=== PATIENT | female | born 1990 | race Caucasian/White ===

== ENCOUNTER 2022-10-25 12:20 | Inpatient (IN) | payer MEDICAID, SELFPAY ==
[2022-10-25] VITALS (34 sets, daily range): BP systolic 109–143; BP diastolic 68–105; PULSE 122–151; RESP 23–51; TEMP 37.2–39.1; O2SAT 90–96; BMI 16.7
--- NOTE | 2022-10-25 12:35 | ECG_ITS ---
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
--- NOTE | 2022-10-25 12:35 | XR_ITS ---
The [address] [address] Patient Name: JT BECERRIL MRN: [id number] date: 1990 Sex: F Assigned Patient Location: ER Current Patient Location: ER Accession/Order Number: [id number] Exam Date: 10/25/2022 13:10 Report Date: 10/25/2022 14:16 At the request of: MARCELO DAVIS Procedure: XR chest 1V EXAMINATION: XR chest 1V HISTORY: shortness of breath COMPARISON: 05/28/2022 TECHNIQUE: Semierect portable FINDINGS: LUNGS: The right lung is clear. Moderate left basilar infiltrate obscuring the hemidiaphragm and partially obscuring the heart border VASCULATURE: No increased pulmonary vasculature. PLEURA: No pneumothorax. Left pleural effusion CARDIAC: No cardiomegaly or cardiac silhouette abnormality. MEDIASTINUM: No visible mass or adenopathy. BONES: No fracture or visible bone lesion. Scoliosis with spinal fixation rods OTHER: Negative. XR/XR chest 1V IMPRESSION: Moderate left lung infiltrate and pleural effusion. Consider left lower lobe pneumonia Electronically authenticated by: SHAKIR WINSTON Date: 10/25/2022 14:16
[2022-10-25] MEDS: METHYLPREDNISOLONE SOD SUCC PF 125 MG/2 ML VIAL IVP (13:01)
[2022-10-25] MEDS: ALBUTEROL SULFATE 2.5 MG/3 ML VIAL NEB IH (13:06)
[2022-10-25 13:10] LABS: Basophils Percent Auto 0.2 % (0.2-2.0); Eosinophils Percent Auto 0.1 % (0.9-7.0); Hematocrit 40.2 % (36.0-48.0); Hemoglobin 13.1 g/dL (12.0-16.0); Immature Granulocytes Abs Auto 0.07 10^3/uL (0.00-0.03); Immature Granulocytes Pct Auto 0.4 % (0.0-0.5); Lymphocytes Absolute Auto 1.1 10^3/uL (1.2-3.8); Lymphocytes Percent Auto 7.1 % (20.5-60.0); Mean Corpuscular HGB Conc 32.6 g/dL (29.9-35.2); Mean Corpuscular Hemoglobin 29.1 pg (26.7-34.0); Mean Corpuscular Volume 89.3 fL (81.0-99.0); Mean Platelet Volume 10.5 fL (9.5-13.5); Monocytes Absolute Auto 1.4 10^3/uL (0.3-0.8); Neutrophils Absolute Auto 13.1 10^3/uL (1.4-6.5); Neutrophils Percent Auto 83.2 % (43.0-75.0); Platelet Count 378 10^3/uL (150-450); Red Cell Distribution Width 12.8 % (11.0-15.0); White Blood Count 15.7 10^3/uL (4.0-11.0)
[2022-10-25 13:34] LABS: Anion Gap 13.9; BUN Creatinine Ratio 31.8; Calcium 9.6 mg/dL (8.5-10.1); Carbon Dioxide 29.2 mmol/L (21.0-32.0); Chloride 96 mmol/L (98-107); Estimated GFR (African America >60 (>=60); Estimated GFR (Non-African Ame >60 (>=60); Glucose 127 mg/dL (74-106); Potassium 4.1 mmol/L (3.5-5.1); Sodium 135 mmol/L (136-145); Troponin I High Sensitivity <4.0 pg/mL (4.0-51.3)
--- NOTE | 2022-10-25 14:10 | ED_ITS ---
HPI - General Adult General Chief complaint: Shortness of Breath/Dyspnea Stated complaint: TROUBLE BREATHING/SOB Time Seen by Provider: 10/25/22 12:30 Source: caregiver Source information: Caregiver from [facility] Mode of arrival: ambulance Limitations: altered mental status and physical limitation History of Present Illness HPI narrative: patient brought in by EMS from [facility] when the staff noted that her breathing became erratic and she seemed short of breath. Patient is non-verbal, has CP, severe intellectual disability, hearing and visual impairment and seizure disorder. She stayed with her father this past weekend but he did not report any issues. The patient's breathing became erratic and she began grunting after the staff attempted to give her tube feeds and reported some difficulty doing so. She had the g-tube initially placed October 2015. Related Data Home Medications Medication Instructions Recorded Confirmed divalproex 125 mg tablet,delayed 125 mg PO Q12H 10/25/22 10/25/22 release (Depakote) levetiracetam 100 mg/mL oral 250 mg PO BID 10/25/22 10/25/22 solution (Keppra) Allergies Allergy/AdvReac Type Severity Reaction Status Date / Time Sulfa (Sulfonamide Allergy Intermediate Verified 10/25/22 12:31 Antibiotics) Exam Narrative Exam Narrative: Nurses notes and vital signs reviewed and patient is not hypoxic. slightly elevated temp at 99.9F General: Tachypnea with occasional grunting. Skin: Warm, dry, no pallor noted. No rash. Head: Normocephalic, atraumatic. Eye: Pupils are equal, round and EOMI. No scleral icterus. Ears, Nose, Mouth, and Throat: No facial or oral injury Cardiovascular: tachycardia. Respiratory: Tachypnea with occasional grunting. Some accessory muscle use as she coughs but no respiratory distress. Lungs with left sided rhonchi and rales Chest Wall: no tenderness, crepitus or subcutaneous emphysema Back: No midline thoracic or lumbar vertebral tenderness. No CVA tenderness Musculoskeletal: normal ROM, no calf or popliteal tenderness, no lower extremity edema/swelling GI: Abdomen is soft, non-distended. Normal bowel sounds. No tenderness to palpation. No rebound, guarding, or rigidity noted. Neurological: Non-verbal and non-interactive. No cranial nerve dysfunction observed. No truncal ataxia. Moves all extremities. Sensation intact. Constitutional Vital Signs, click to edit/add: Last Vital Signs Temp 102.4 F H 10/25/22 14:49 Pulse 130 H 10/25/22 14:49 Resp 40 H 10/25/22 14:49 BP 110/73 10/25/22 14:49 Pulse Ox 96 10/25/22 14:49 O2 Del Method Nasal Cannula 10/25/22 14:49 O2 Flow Rate 2 10/25/22 14:49 Course Vital Signs Vital signs: Vital Signs Temperature 99.9 F H 10/25/22 12:25 Pulse Rate 133 H 10/25/22 12:25 Respiratory Rate 28 H 10/25/22 12:25 Blood Pressure 143/105 H 10/25/22 12:25 Pulse Oximetry 95 10/25/22 12:25 Oxygen Delivery Method Room Air 10/25/22 12:25 Temperature 102.4 F H 10/25/22 14:49 Pulse Rate 130 H 10/25/22 14:49 Respiratory Rate 40 H 10/25/22 14:49 Blood Pressure 110/73 10/25/22 14:49 Pulse Oximetry 96 10/25/22 14:49 Oxygen Delivery Method Nasal Cannula 10/25/22 14:49 Oxygen Delivery Flow Rate 2 10/25/22 14:49 Medical Decision Making MDM Narrative Medical decision making narrative: respiratory status changed between 930am and 1030am after the staff had difficulty giving the patient tube feed - no vomiting or aspiration was directly seen but the patient did not have 1-on-1 care during that time frame. Concern for aspiration versus pneumonia or other pulmonary process. Patient was placed on air sampling and monitoring and EKG obtained. Blood drawn and sent for evaluation, including lactate and blood cultures per protocol. Initial EKG is not interpretable due to artifact. CXR obtained WBC 15.7k with left shift. BMP unremarkable. Troponin and BNP negative. Patient ordered to receive IV Levaquin. Lactate negative The family was concerned that this might no be respiratory and might be pain or from a UTI. So I ordered her to receive pain meds along with zofran in case she got nauseous. I also ordered straight cath and urine to be sent for testing. Very small amount of thick whitish urine was collected - enough for a culture but not a UA or both. Culture will be obtained. Patient's family informed of results and plan to admit the patient. Call placed to the hospitalist inventory control clerk to discuss. Dr Vang agreed to admit the patient - inpatient with telemetry to med/surg floor. Lab Data Lab results reviewed: Yes I reviewed the patient's lab results Labs: Lab Results 10/25/22 10/25/22 Range/Units 12:52 14:20 WBC 15.7 H (4.0-11.0) 10^3/uL RBC 4.50 (4.20-5.40) 10^6/uL Hgb 13.1 (12.0-16.0) g/dL Hct 40.2 (36.0-48.0) % MCV 89.3 (81.0-99.0) fL MCH 29.1 (26.7-34.0) pg MCHC 32.6 (29.9-35.2) g/dL RDW 12.8 (11.0-15.0) % Plt Count 378 (150-450) 10^3/uL MPV 10.5 (9.5-13.5) fL Neut % (Auto) 83.2 H (43.0-75.0) % Lymph % (Auto) 7.1 L (20.5-60.0) % [place] % (Auto) 9.0 (1.7-12.0) % Eos % (Auto) 0.1 L (0.9-7.0) % Baso % (Auto) 0.2 (0.2-2.0) % Neut # (Auto) 13.1 H (1.4-6.5) 10^3/uL Lymph # (Auto) 1.1 L (1.2-3.8) 10^3/uL [place] # (Auto) 1.4 H (0.3-0.8) 10^3/uL Eos # (Auto) 0.0 (0.0-0.7) 10^3/uL Baso # (Auto) 0.0 (0.0-0.1) 10^3/uL Abs Immat Gran (auto) 0.07 H (0.00-0.03) 10^3/uL Imm/Tot Granulo (auto) 0.4 (0.0-0.5) % Sodium 135 L (136-145) mmol/L Potassium 4.1 (3.5-5.1) mmol/L Chloride 96 L (98-107) mmol/L Carbon Dioxide 29.2 (21.0-32.0) mmol/L Anion Gap 13.9 BUN 14.0 (7.0-18.0) mg/dL Creatinine 0.44 L (0.55-1.02) mg/dL Est GFR ( Amer) >60 (>=60) Est GFR (Non-Af Amer) >60 (>=60) BUN/Creatinine Ratio 31.8 Glucose 127 H (74-106) mg/dL Lactate 0.9 (0.4-2.0) mmol/L Calcium 9.6 (8.5-10.1) mg/dL Troponin I High Sens <4.0 L (4.0-51.3) pg/mL NT-Pro-B Natriuret Pep 87.0 (<=450.0) pg/mL Imaging Data Chest x-ray: Radiologist's impression: Patient Name: JT BECERRIL MRN: [facility]:[id number] date: 1990 Sex: F Assigned Patient Location: ER Current Patient Location: ER Accession/Order Number: [id number] Exam Date: 10/25/2022 13:10 Report Date: 10/25/2022 14:16 At the request of: MARCELO DAVIS Procedure: XR chest 1V EXAMINATION: XR chest 1V HISTORY: shortness of breath COMPARISON: 05/28/2022 TECHNIQUE: Semierect portable FINDINGS: LUNGS: The right lung is clear. Moderate left basilar infiltrate obscuring the hemidiaphragm and partially obscuring the heart border VASCULATURE: No increased pulmonary vasculature. PLEURA: No pneumothorax. Left pleural effusion CARDIAC: No cardiomegaly or cardiac silhouette abnormality. MEDIASTINUM: No visible mass or adenopathy. BONES: No fracture or visible bone lesion. Scoliosis with spinal fixation rods OTHER: Negative. IMPRESSION: Moderate left lung infiltrate and pleural effusion. Consider left lower lobe pneumonia Electronically authenticated by: SHAKIR WINSTON Date: 10/25/2022 14:16 ECG Data Interpretation: initial EKG is not interpretable due to artifact. Discharge Plan Discharge Chief Complaint: Shortness of Breath/Dyspnea Clinical Impression: Community acquired pneumonia, UTI (urinary tract infection) Patient Disposition: Admitted As Inpatient Time of Disposition Decision: 15:21 Additional Instructions: Dr Vang, inpatient med/surg w tele
[2022-10-25] MEDS: ONDANSETRON PF 4 MG/2 ML VIAL IV (14:25)
[2022-10-25] MEDS: MORPHINE SULFATE 2 MG/ML SYRINGE IV (14:25)
[2022-10-25] MEDS: LEVOFLOXACIN IN DEXTROSE 5 % 750 MG/150 ML PIGGYBACK IV (14:40)
[2022-10-25 14:53] LABS: Lactate/Lactic Acid 0.9 mmol/L (0.4-2.0)
[2022-10-25] MEDS: ACETAMINOPHEN 500 MG TABLET G-TUBE (15:53)
[2022-10-25] MEDS: 0.9 % SODIUM CHLORIDE 1,000 ML 1000 ML IV (16:15)
[2022-10-25 16:32] LABS: SARS-CoV-2 Ag NEGATIVE (NEGATIVE)
--- NOTE | 2022-10-25 19:46 | W.PM.TELEPN ---
Progress Note: Subjective Subjective Interval history: The patient is a 32-year-old female with cerebral palsy, nonverbal at baseline and has PEG tube placement, who was at the daycare earlier today. Her mother got a phone call around 11:30 AM saying that she had increased work of breathing. She presented to the ED and was noted to have sepsis secondary to pneumonia. She was given Levaquin. She was also given Tylenol for fever and is being admitted to the ICU for further evaluation. Exam Narrative Exam Narrative: General : Nonverbal, contracted Neck: Supple, no JVD Chest: Clear to auscultation bilaterally, no wheezes Heart: Regular rate and rhythm, S1 and S2 heard Abdomen: Soft nontender nondistended. PEG tube in place Extremities: No clubbing cyanosis or edema Skin: No rashes Constitutional Vital Signs, click to edit/add: Last Vital Signs Temp 99.9 F H 10/25/22 18:29 Pulse 135 H 10/25/22 18:29 Resp 24 10/25/22 18:29 BP 114/78 10/25/22 18:29 Pulse Ox 94 L 10/25/22 18:29 O2 Del Method Nasal Cannula 10/25/22 18:29 O2 Flow Rate 2 10/25/22 18:29 Progress Note: Objective Labs Labs: Short CBC 10/25/22 Range/Units 12:52 WBC 15.7 H (4.0-11.0) 10^3/uL Hgb 13.1 (12.0-16.0) g/dL Hct 40.2 (36.0-48.0) % Plt Count 378 (150-450) 10^3/uL BMP 10/25/22 12:52 Sodium 135 L Potassium 4.1 Chloride 96 L Carbon Dioxide 29.2 BUN 14.0 Creatinine 0.44 L Glucose 127 H Calcium 9.6 Progress Note: A&P Assessment and Plan (1) UTI (urinary tract infection): (2) Community acquired pneumonia: Assessment and Plan: The patient is a 32-year-old female with a history of cerebral palsy, presenting with sepsis secondary to pneumonia. Pneumonia -Left lower lung infiltrate -Could be community-acquired or aspiration -Broaden antibiotics to Zosyn and vancomycin -Provide nebulizers Pleural effusion -Give 1 dose of IV Lasix History of seizures -Continue home medications DVT Prophylaxis -Lovenox, SCDs Medication review -Medication reconciliation form completed Goals of care -Full code Communications -Discussed with the emergency room physician -Discussed with the bedside nurse -Patient's mother updated of plan of care, all questions answered to their satisfaction Disposition -Home when medically stable Telemedicine clause -As the provider of this telehealth evaluation, requested by the patient's evaluating physician, I attest that I introduced myself to the patient, provided my credentials and determined that telemedicine via a real-time, two-way interactive audio and video platform is an appropriate and effective means of providing this service. -I reviewed the patient's chart and had a discussion with the member of the patient's treatment team. -The patient and I mutually agreed with continuation of this evaluation via telemedicine. The patient consented for the telemedicine evaluation. -This virtual encounter was taken place from [place], [place]. The encounter was approximately 35 minutes. The nurse was present during the entire time of the encounter and was able to remove the stethoscope and appropriate directions. The patient was evaluated at [facility] Telemedicine Attestation Telemedicine Attestation I conducted this encounter from [facility] via secure live, [id number] video conference with the patient, located at [facility] with nurse. Prior to the interview, the risks and benefits of telemedicine were discussed with the patient and verbal consent was obtained.
[2022-10-25] MEDS: IPRATROPIUM/ALBUTEROL SULFATE 3 ML AMPUL.NEB IH (20:30)
[2022-10-25] MEDS: DIVALPROEX SODIUM 125 MG TABLET.DR PO (20:48)
[2022-10-25] MEDS: LEVETIRACETAM 500 MG/5 ML SOLUTION 250 MG PO (20:49)
[2022-10-25] MEDS: PIPERACILLIN SODIUM/TAZOBACTAM 3.375 GM in 0.9 % SODIUM CHLORIDE 50 ML IV (21:29)
[2022-10-25] MEDS: VANCOMYCIN HCL 1,000 MG in 0.9 % SODIUM CHLORIDE 250 ML 250 MG IV (21:29)
[2022-10-25] MEDS: ENOXAPARIN SODIUM 40 MG/0.4 ML SYRINGE SUBQ (21:30)
[2022-10-25] MEDS: ACETAMINOPHEN 325 MG TABLET 650 MG G-TUBE (21:33)
--- NOTE | 2022-10-25 22:02 | PC.NURSE ---
Father at bedside currently. Patient is resting peacefully in bed. Antibiotics are currently running at this time. Patient is febrile at 99.7 orally. 650 of tylenol given at this time through G-tube and flushed. Patient tolerated procedure well. Patient on 3L [place] currently for hypoxia related to the pleural effusion and pneumonia. Positive response achieved with oxygen therapy.
[2022-10-26] VITALS (33 sets, daily range): BP systolic 101–122; BP diastolic 66–75; PULSE 107–153; RESP 24–50; TEMP 36.4–38.4; O2SAT 90–97; BMI 16.7
[2022-10-26] MEDS: IBUPROFEN 400 MG TABLET PO (00:22)
[2022-10-26] MEDS: FUROSEMIDE 20 MG/2 ML VIAL IVP (01:37)
[2022-10-26] MEDS: ACETAMINOPHEN 325 MG TABLET 650 MG G-TUBE ×2 (03:00→21:03)
[2022-10-26] MEDS: METOPROLOL TARTRATE 5 MG/5 ML VIAL IVP ×3 (03:01→21:03)
--- NOTE | 2022-10-26 03:37 | PC.NURSE ---
record vitals on pt, admin tylenol for slight temp of 99.5 axillary, admin lopressor for elevated heart rate, HR dropped from 133 to 107 after admin of med. BP WNL, titrated O2 up to 4L at this time, pt had been dropping down to 88% intermittently, pt now up to 91-92%, respirs are 32 at this time.
[2022-10-26 04:08] LABS: Basophils Percent Auto 0.1 % (0.2-2.0); Hematocrit 34.1 % (36.0-48.0); Hemoglobin 11.3 g/dL (12.0-16.0); Immature Granulocytes Abs Auto 0.04 10^3/uL (0.00-0.03); Immature Granulocytes Pct Auto 0.3 % (0.0-0.5); Lymphocytes Absolute Auto 0.5 10^3/uL (1.2-3.8); Lymphocytes Percent Auto 3.2 % (20.5-60.0); Mean Corpuscular HGB Conc 33.1 g/dL (29.9-35.2); Mean Corpuscular Hemoglobin 29.7 pg (26.7-34.0); Mean Corpuscular Volume 89.7 fL (81.0-99.0); Mean Platelet Volume 10.5 fL (9.5-13.5); Monocytes Absolute Auto 1.5 10^3/uL (0.3-0.8); Monocytes Percent Auto 10.5 % (1.7-12.0); Neutrophils Absolute Auto 12.2 10^3/uL (1.4-6.5); Neutrophils Percent Auto 85.9 % (43.0-75.0); Platelet Count 284 10^3/uL (150-450); Red Cell Distribution Width 12.7 % (11.0-15.0); White Blood Count 14.2 10^3/uL (4.0-11.0)
[2022-10-26 04:20] LABS: Anion Gap 11.9; BUN Creatinine Ratio 23.2; Calcium 8.8 mg/dL (8.5-10.1); Carbon Dioxide 26.9 mmol/L (21.0-32.0); Chloride 99 mmol/L (98-107); Estimated GFR (African America >60 (>=60); Estimated GFR (Non-African Ame >60 (>=60); Glucose 184 mg/dL (74-106); Potassium 3.8 mmol/L (3.5-5.1); Sodium 134 mmol/L (136-145)
[2022-10-26] MEDS: PIPERACILLIN SODIUM/TAZOBACTAM 3.375 GM in 0.9 % SODIUM CHLORIDE 50 ML IV ×3 (05:02→21:04)
--- NOTE | 2022-10-26 07:06 | SUR.HOLD ---
Pt changed, and linens changed this morning. pt lung sounds throughout have reeduced rhonci and rales, expiratory wheeze still present.
[2022-10-26] MEDS: DIVALPROEX SODIUM 125 MG TABLET.DR PO (08:00)
[2022-10-26] MEDS: LEVETIRACETAM 500 MG/5 ML SOLUTION 250 MG PO (08:01)
--- NOTE | 2022-10-26 08:27 | PM.HP ---
H&P: HPI History of Present Illness Chief complaint: TROUBLE BREATHING/SOB UTI PNEUMONIA Narrative: patient is a 32-year-old female with past medical history with cerebral palsy, MRDD who is nonverbal. Also has history of epilepsy and requires two canes. Mom was at bedside at the time of admission exam, patient was at a daycare when she became more short of breath and was not able to clear her secretions. She was then brought to the Emergency Room for further evaluation and was found to have a urinary tract infection along with a left lower lobe pneumonia. No reported events overnight with exception of poor expectoration and clearing of secretions. She has been getting her tube feeds and she still requiring oxygen to maintain saturations greater then ninety. Review of Systems ROS Status of ROS unobtainable due to mental status [facility] Medical History (Updated 10/26/22 @ 14:09 by Sherry Vang DO) Surgical History Meds Home Medications and Allergies Home Medications Medication Instructions Recorded Confirmed Type divalproex 125 mg tablet,delayed 125 mg PO Q12H 10/25/22 10/25/22 History release (Depakote) levetiracetam 100 mg/mL oral 250 mg PO BID 10/25/22 10/25/22 History solution (Keppra) Allergies Allergy/AdvReac Type Severity Reaction Status Date / Time Sulfa (Sulfonamide Allergy Intermediate Verified 10/25/22 12:31 Antibiotics) Exam Narrative Exam Narrative: General: Patient is alert Skin: no visible rashes, or ulcers Head: atraumatic, acephalic Eyes: PERRLA, no nystagmus present, conjunctiva clear, no scleral icterus Ears: normal Tympanic Membrane Nose: symmetric, no discharge Neck: no masses palpated, normal thyroid, no JVD or audible carotid bruits Heart: Normal rate and rhythm, no murmurs/rubs/gallops Lungs: no audible wheezes, crackles and diminished breath sounds all lung bajwa Abdomen: Normal audible bowel sounds, no distension, No palpable masses, no organomegaly, no rebound/guarding/ or rigidity Musculoskeletal: muscle atrophy noted, contractures of arms and legs, no swelling bilateral lower extremities Vascular: Normal carotid, radial, femoral, posterior tibial, and dorsalis pedis pulses Lymph: no supraclavicular, axillary, or anterior/posterior cervical adenopathy Neuro: CN II-X grossly intact Constitutional Vital Signs, click to edit/add: Last Vital Signs Temp 97.5 F L 10/26/22 07:24 Pulse 113 H 10/26/22 07:32 Resp 24 10/26/22 07:16 BP 101/66 10/26/22 07:16 Pulse Ox 93 L 10/26/22 08:21 O2 Del Method Nasal Cannula 10/26/22 08:21 O2 Flow Rate 3 10/26/22 08:21 Results Labs Labs: Short CBC 10/25/22 10/26/22 Range/Units 12:52 03:58 WBC 15.7 H 14.2 H (4.0-11.0) 10^3/uL Hgb 13.1 11.3 L (12.0-16.0) g/dL Hct 40.2 34.1 L (36.0-48.0) % Plt Count 378 284 (150-450) 10^3/uL BMP 10/25/22 10/26/22 12:52 03:58 Sodium 135 L 134 L Potassium 4.1 3.8 Chloride 96 L 99 Carbon Dioxide 29.2 26.9 BUN 14.0 13.0 Creatinine 0.44 L 0.56 Glucose 127 H 184 H Calcium 9.6 8.8 Assessment and Plan Assessment and Plan (1) Community acquired pneumonia: Assessment and Plan: chest x-ray consistent with a left lower lobe pneumonia was placed on Vanc, Zosyn and Levaquin will continue to de-escalate antibiotics once cultures result. (2) UTI (urinary tract infection): Assessment and Plan: awaiting culture results continue antibiotic therapy. (3) Sepsis: Assessment and Plan: secondary to #1 and two, was given fluid boluses resuscitation patient had tachycardia hypotension and elevated lactate elevated white blood cell count and a fever.lactate is now normal white blood cell count is improving. (4) History of gastrostomy tube placement: Assessment and Plan: continue tube feeds (5) Hx of seizure disorder: Assessment and Plan: continue Keppra and Depakote (6) Severe intellectual disability: Assessment and Plan: history of cerebral palsy with MRDD, patient is nonverbal Plan patient is full code Patient is inpatient status and is expected to stay more than two midnights Lovenox for deep vein thrombosis prophylaxis
[2022-10-26] MEDS: VANCOMYCIN HCL 1,000 MG in 0.9 % SODIUM CHLORIDE 250 ML 250 MG IV ×2 (09:00→16:01)
[2022-10-26] MEDS: LEVALBUTEROL HCL 1.25 MG/3 ML VIAL NEB IH ×3 (11:46→20:47)
--- NOTE | 2022-10-26 13:06 | CM.NOTE ---
Rounds made with alexandria Nathan to discharge to home today. No discharge needs identified.
--- NOTE | 2022-10-26 13:08 | CM.NOTE ---
Rounds made with Dr. Vang, discussed plan of care with pt's mother. No discharge today and continue IV antibiotics, lab work improving.
--- NOTE | 2022-10-26 13:24 | DIETREC ---
Recommend prostat @ 30 ml via peg tube x 1 daily for skin integrity
[2022-10-26 15:49] LABS: SARS-CoV-2 NAA NOT DETECTED (NOT DETECTE)
[2022-10-26] MEDS: VALPROIC ACID 250 MG/5 ML G-TUBE (21:07)
[2022-10-26] MEDS: ENOXAPARIN SODIUM 40 MG/0.4 ML SYRINGE SUBQ (21:08)
[2022-10-26] MEDS: LEVETIRACETAM 500 MG/5 ML SOLUTION PO (21:08)
[2022-10-27] VITALS (77 sets, daily range): BP systolic 98–131; BP diastolic 68–92; PULSE 108–141; RESP 19–45; TEMP 36.7–37.9; O2SAT 87–96
[2022-10-27] MEDS: IBUPROFEN 400 MG TABLET PO ×2 (00:11→19:59)
[2022-10-27] MEDS: VANCOMYCIN HCL 1,000 MG in 0.9 % SODIUM CHLORIDE 250 ML 250 MG IV (00:12)
[2022-10-27] MEDS: 0.9 % SODIUM CHLORIDE 250 ML 50 ML IV (00:20)
[2022-10-27] MEDS: METOPROLOL TARTRATE 5 MG/5 ML VIAL IVP ×4 (02:18→21:43)
[2022-10-27] MEDS: PIPERACILLIN SODIUM/TAZOBACTAM 3.375 GM in 0.9 % SODIUM CHLORIDE 50 ML IV ×3 (04:50→21:37)
--- NOTE | 2022-10-27 06:06 | PC.NURSE ---
HR was 138 - lopressor 5mg iv given down to 118 at this time
--- NOTE | 2022-10-27 08:50 | PM.PN ---
Progress Note: Subjective Subjective Interval history: patient is a 32-year-old female with past medical history with cerebral palsy, MRDD who is nonverbal. Also has history of epilepsy and requires two canes. Mom was at bedside at the time of admission exam, patient was at a daycare when she became more short of breath and was not able to clear her secretions. She was then brought to the Emergency Room for further evaluation and was found to have a urinary tract infection along with a left lower lobe pneumonia. No reported events overnight with exception of poor expectoration and clearing of secretions. She has been getting her bolus tube feeds and she still requiring oxygen to maintain saturations greater than ninety. This morning on exam, had several episodes of vomiting after tube feeds. Elevated liver enzymes. Fever overnight Exam Narrative Exam Narrative: General: Patient is alert Skin: no visible rashes, or ulcers Head: atraumatic, acephalic Eyes: PERRLA, no nystagmus present, conjunctiva clear, no scleral icterus Ears: normal Tympanic Membrane Nose: symmetric, no discharge Neck: no masses palpated, normal thyroid, no JVD or audible carotid bruits Heart: Normal rate and rhythm, no murmurs/rubs/gallops Lungs: no audible wheezes, crackles and diminished breath sounds all lung bajwa Abdomen: Normal audible bowel sounds, no distension, No palpable masses, no organomegaly, no rebound/guarding/ or rigidity Musculoskeletal: muscle atrophy noted, contractures of arms and legs, no swelling bilateral lower extremities Vascular: Normal carotid, radial, femoral, posterior tibial, and dorsalis pedis pulses Lymph: no supraclavicular, axillary, or anterior/posterior cervical adenopathy Neuro: CN II-X grossly intact Constitutional Vital Signs, click to edit/add: Last Vital Signs Temp 98.4 F 10/27/22 07:20 Pulse 130 H 10/27/22 08:00 Resp 39 H 10/27/22 07:20 BP 131/81 H 10/27/22 07:20 Pulse Ox 90 L 10/27/22 06:33 O2 Del Method Nasal Cannula 10/27/22 04:00 O2 Flow Rate 2 10/27/22 04:00 Progress Note: A&P Assessment and Plan (1) Community acquired pneumonia: (2) UTI (urinary tract infection): (3) Sepsis: (4) History of gastrostomy tube placement: (5) Hx of seizure disorder: (6) Severe intellectual disability: (7) Elevated LFTs: Plan (1) Community acquired pneumonia: ?Assessment and Plan: chest x-ray consistent with a left lower lobe pneumonia was placed on Vanc, Zosyn and Levaquin will stop vanc today, urine culture negative. More concern for aspiration pneumonia with bolus feeds. Nutrition consult today, pulmonary consult today for further recommendations. Repeat X-ray pending (2) UTI (urinary tract infection): ?Assessment and Plan: culture negative but will continue antibiotic therapy for #1 (3) Sepsis: ?Assessment and Plan: secondary to #1, was given fluid boluses resuscitation patient had tachycardia hypotension and elevated lactate elevated white blood cell count and a fever.lactate is now normal white blood cell count is improving. sepsis resolving. (4) History of gastrostomy tube placement: ?Assessment and Plan: continue tube feeds but concern for more aspiration with vomiting and overfeed. Nutrition consult for recommendations (5) Hx of seizure disorder: ?Assessment and Plan: continue Keppra and Depakote (6) Severe intellectual disability: ?Assessment and Plan: history of cerebral palsy with MRDD, patient is nonverbal, very difficult to clear own secreations and mucus, cannot even blow nose. Nursing has been providing frequent suction, we have tried vest therapy with PRN nebs. (7) elevated LFT's, lipase level pending, RUQ ultrasound, and could be due to vomiting or causing vomiting. IVF, zofran as needed. Plan patient is full code Patient is inpatient status and is expected to stay more than two midnights Lovenox for deep vein thrombosis prophylaxis mom and dad have been at bedside
[2022-10-27] MEDS: LEVOFLOXACIN IN DEXTROSE 5 % 500 MG/100 ML PIGGYBACK IV (09:10)
[2022-10-27] MEDS: VALPROIC ACID 250 MG/5 ML G-TUBE (09:11)
[2022-10-27] MEDS: LEVETIRACETAM 500 MG/5 ML SOLUTION PO (09:11)
[2022-10-27 09:18] LABS: Hematocrit 32.6 % (36.0-48.0); Hemoglobin 10.5 g/dL (12.0-16.0); Mean Corpuscular HGB Conc 32.2 g/dL (29.9-35.2); Mean Corpuscular Volume 90.1 fL (81.0-99.0); Mean Platelet Volume 10.5 fL (9.5-13.5); Platelet Count 259 10^3/uL (150-450); Red Blood Count 3.62 10^6/uL (4.20-5.40); Red Cell Distribution Width 12.8 % (11.0-15.0); White Blood Count 15.3 10^3/uL (4.0-11.0)
[2022-10-27 09:38] LABS: Alanine Aminotransferase 219 U/L (14-59); Albumin Globulin Ratio 0.4; Albumin Level 1.9 g/dL (3.4-5.0); Alkaline Phosphatase 185 U/L (46-116); Anion Gap 13.2; Aspartate Amino Transferase 184 U/L (15-37); BUN Creatinine Ratio 22.2; Bilirubin Total 0.2 mg/dL (0.2-1.0); Calcium 8.9 mg/dL (8.5-10.1); Carbon Dioxide 25.8 mmol/L (21.0-32.0); Chloride 101 mmol/L (98-107); Estimated GFR (African America >60 (>=60); Estimated GFR (Non-African Ame >60 (>=60); Glucose 149 mg/dL (74-106); Sodium 136 mmol/L (136-145); Total Protein 6.9 g/dL (6.4-8.2)
[2022-10-27 09:40] LABS: Band Neutrophils Absolute 0.2 10^3/uL (0.0-0.3); Lymphocytes Absolute Manual 0.91 10^3/uL (1.20-3.80); Monocytes Absolute Manual 1.68 10^3/uL (0.30-0.80); Segmented Neut Absolute Manual 12.54 10^3/uL (1.4-6.5)
[2022-10-27] MEDS: LACTATED RINGER'S SOLUTION 1,000 ML 125 ML IV ×2 (09:44→17:27)
[2022-10-27] MEDS: ONDANSETRON PF 4 MG/2 ML VIAL IV (10:06)
--- NOTE | 2022-10-27 11:45 | CM.NOTE ---
Rounds made with Dr. Vang, continue IV antibiotics and breathing tx. Pt will not be discharged today.
--- NOTE | 2022-10-27 12:02 | XR_ITS ---
The [address] [address] Patient Name: JT BECERRIL MRN: [id number] date: 1990 Sex: F Assigned Patient Location: ICU Current Patient Location: ICU Accession/Order Number: [id number] Exam Date: 10/27/2022 12:11 Report Date: 10/27/2022 12:40 At the request of: MYRA BERGMAN Procedure: XR chest 1V EXAM: XR chest 1V HISTORY: aspiration COMPARISON: 10/25/2022 TECHNIQUE: AP portable FINDINGS: LUNGS: Complete opacification of the left hemithorax obscuring the hemidiaphragm and heart border. The right lung is clear VASCULATURE: No increased pulmonary vasculature. PLEURA: No pneumothorax CARDIAC: No cardiomegaly or cardiac silhouette abnormality. MEDIASTINUM: No visible mass or adenopathy. BONES: No fracture or visible bone lesion. Spinal fusion hardware with underlying dextroscoliosis OTHER: Negative. XR/XR chest 1V IMPRESSION: Complete opacification of the left hemithorax, likely combination of pleural effusion and consolidation Electronically authenticated by: SHAKIR WINSTON Date: 10/27/2022 12:40
--- NOTE | 2022-10-27 12:04 | US_ITS ---
The [address] [address] Patient Name: JT BECERRIL MRN: [id number] date: 1990 Sex: F Assigned Patient Location: ICU Current Patient Location: ICU Accession/Order Number: [id number] Exam Date: 10/27/2022 12:30 Report Date: 10/27/2022 13:53 At the request of: MYRA BERGMAN Procedure: US abdomen complete EXAM: US abdomen complete HISTORY: elevated LFTs, bedside if possible COMPARISON: None. TECHNIQUE: Real-time complete abdomen ultrasound. Findings: The visualized portions of the aorta and IVC are unremarkable. Evaluation of the pancreas is limited due to overlying bowel gas. The visualized portions unremarkable. Unremarkable hepatic parenchymal echotexture. No focal intrahepatic mass. The main portal vein is patent and demonstrates hepatopedal flow. The gallbladder is fluid-filled and contains multiple stones. No wall thickening or pericholecystic fluid. No biliary ductal dilatation. The common bile duct measures 0.2 cm. The right and left kidneys measure 10.5 and 11.2 cm. Good corticomedullary differentiation bilaterally. No renal stones or collecting system dilatation. No focal mass or perinephric fluid collection. The spleen measures 13.6 cm and is unremarkable. US/US abdomen complete IMPRESSION: 1. Cholelithiasis. Electronically authenticated by: GELY THOMAS Date: 10/27/2022 13:53
[2022-10-27] MEDS: SCOPOLAMINE 1 EACH PATCH.TD.3 1 PATCH TD (13:12)
--- NOTE | 2022-10-27 13:16 | P.PLCN_ITS ---
History of Present Illness History of Present Illness Consult date: 10/27/22 Requesting physician: Sherry Vang Chief complaint: TROUBLE BREATHING/SOB UTI PNEUMONIA Narrative: 32yo female with cerebral palsy and MRDD, completely dependent on her parents (who live separately) presented to [facility] ER with respiratory distress on 10/25/2022. At baseline, she is not on supplemental O2 and only has albuterol though no diagnosis of asthma or COPD was provided. The mother, present in the room, states that she gives albuterol PRN when the patient appears to be having some difficulty breathing whereas she claims the father will give it twice daily scheduled. Regardless, the patient appeared to be having increased respiratory distress along with fevers and was brought to the ER. She was found to have a LLL infiltrate and signs of sepsis (e.g. tachycardia, tachypnea, leukocytosis) and was hypoxemic requiring supplemental O2. I spoke with RT - the patient is unable to clear her secretions (combination of weakness, body habitus, and mental capacity). Vest device can mobilize secretions, but patient does not expectorate. They are having to orally suction the patient. Mother states the patient has a history of significant drooling and secretions. It is not provoked by nutrition - it can happen anytime. It can sometimes soak the towel or shirt of the patient. She is on bolus TF - had PEG placed ~6 years ago - has never been on trophic or continuous feeds. Mother states that the patient is always sitting up when giving the bolus feed and waits a minimum of an hour prior to placing her supine (if she does). Today, she had episodes of vomiting witnessed by Dr. Vang with possible aspiration of TF. She continues to have tachypnea and tachycardia and persistent leukocytosis despite having been on Zosyn + Levaquin and up until now Vancomycin. CXR was repeated this early afternoon and now shows complete opacification of the left lung. Attempted to address code status, including intubation and ventilator support, with mother, but she stated she did not want to make any decisions until she spoke with the father, so she replied do everything at this current time. Review of Systems ROS Status of ROS unobtainable due to medical condition (MRDD) [facility] Medical History (Updated 10/27/22 @ 13:38 by Arie Calle DO) Surgical History Meds Home Medications and Allergies Home Medications Medication Instructions Recorded Confirmed Type levetiracetam 100 mg/mL oral 250 mg feeding tube Q12H 10/25/22 10/26/22 History solution (Keppra) valproic acid (as sodium salt) 250 250 mg feeding tube BID 10/26/22 10/26/22 History mg/5 mL (5 mL) oral solution Allergies Allergy/AdvReac Type Severity Reaction Status Date / Time Sulfa (Sulfonamide Allergy Intermediate Verified 10/25/22 12:31 Antibiotics) Exam Constitutional Vital Signs, click to edit/add: Last Vital Signs Temp 98.6 F 10/27/22 11:34 Pulse 123 H 10/27/22 13:00 Resp 37 H 10/27/22 11:19 BP 131/92 H 10/27/22 11:19 Pulse Ox 92 L 10/27/22 11:19 O2 Del Method Nasal Cannula 10/27/22 04:00 O2 Flow Rate 2 10/27/22 04:00 Documenting provider has reviewed patient's vital signs: yes Exam limitations: language barrier (non-verbal) General appearance: frail appearing Nutritional appearance: thin HENMT Other: Wearing nasal cannula Respiratory Effort & inspection: tachypneic, respiratory distress (mild) and uses accessory muscles; no audible wheezes Auscultation: rhonchi right upper and right lower and diminished lung sounds on the left throughout Cardio Rate: tachycardic Rhythm: regular rhythm GI Inspection: GI tube present Auscultation: normoactive bowel sounds Palpation: soft Extremity General: atrophy (little muscle mass) Neuro Sensorium/orientation: awake Speech: total aphasia (non-verbal baseline) Psych Other: MRDD Results Laboratory Findings Abnormal lab findings: Abnormal Labs 10/25/22 10/26/22 10/27/22 12:52 03:58 09:07 WBC 15.7 H 14.2 H 15.3 H RBC 3.80 L 3.62 L Hgb 11.3 L 10.5 L Hct 34.1 L 32.6 L Neut % (Auto) 83.2 H 85.9 H Lymph % (Auto) 7.1 L 3.2 L Eos % (Auto) 0.1 L 0.0 L Baso % (Auto) 0.1 L Neut # (Auto) 13.1 H 12.2 H Lymph # (Auto) 1.1 L 0.5 L [place] # (Auto) 1.4 H 1.5 H Abs Immat Gran (auto) 0.07 H 0.04 H Lymphocytes % (Manual) 6.0 L Eosinophils % (Manual) 0.0 L Basophils % (Manual) 0.0 L Neutrophils # (Manual) 12.54 H Lymphocytes # (Manual) 0.91 L Monocytes # (Manual) 1.68 H Sodium 135 L 134 L Chloride 96 L Creatinine 0.44 L Glucose 127 H 184 H 149 H AST 184 H ALT 219 H Alkaline Phosphatase 185 H Troponin I High Sens <4.0 L Albumin 1.9 L Lipase 72.0 L Diagnostic Findings Chest x-ray: report reviewed and image reviewed (Marked worsening of left lung 10/27/2022 (complete opacification) vs. 10/25/2022 (LLL infiltrate)) Assessment and Plan Assessment and Plan (1) Aspiration pneumonia due to inhalation of vomitus: Plan 1. Aspiration pneumonia in left lung. Working diagnosis. Symptoms are persistent, and now has complete white out of left lung today on CXR compared to 10/25/2022. After vomiting episode this morning, question further aspiration that accumulated into the left lung, vs. mucus plugging. Patient has already been ordered a pulmonary toilet, including a vest device. However, given the patient's MRDD and cerebral palsy, other non-invasive pulmonary toilet maneuvers and treatments such as postural drainage, gorman maneuvers, and PEP devices are not feasible. As she continues to be symptomatic, a bronchoscopy for clearance of secretions is not ruled out. Anticipate a difficult airway to manage and she would likely require intubation in that instance. She may not be able to be intubated with a 7.5 ETT, let alone a 7 ETT which is the limit of what the bronchoscopes are available here at [facility] - if she does require a bronchoscopy, a pediatric bronchoscope may be required. Furthermore, I am out of town for a conference starting tomorrow, and there is no pulmonary backup available. With these issues, I discussed with Dr. Guanako Vang that transfer to a tertiary care center or facility with higher level of acuity may be in this patient's best interest. 2. Acute hypoxic respiratory failure. Secondary to #1. 3. Severe sepsis seconary to #1. Continues to have SIRS with hypoxic respiratory failure. Difficult to use qSOFA as MRDD prevents adequate calculation of GCS, but she is already at a score of 1 based on RR >22 and her baseline mentation may be altered, increasing it to 2. 3. Cerebral palsy with MRDD. She is unable to care for herself nor participate well in her healthcare treatment here. She is on chronic bolus TF. Ordered parking supervisor to evaluate patient's nutritional status/TF to make recommendations. If aspiration is recurrent, may need to decrease TF bolus amount with more frequent feeds, vs. slow continuous vs. other. 4. Underweight. Associated with cerebral palsy.
--- NOTE | 2022-10-27 14:00 | PM.DS1 ---
DS: Providers Provider Date of admission: 10/25/22 17:32 Primary care physician: REE [place]KE Admitting clinician: Sherry Vang Consults: 10/27/22 12:02 Consult to Dietitian Routine Reason For Exam: tube feeds/bolus Consult to Pulmonology Routine Consulting Provider: Arie Calle 10/27/22 12:05 Consult to Dietitian Routine Reason For Exam: Chronic TF-Evaluate optimal dose: Cont, bolus, etc Discharging clinician: Sherry Vang DS: Diagnosis Discharge Diagnosis (1) Aspiration pneumonia due to inhalation of vomitus: (2) Elevated LFTs: (3) Sepsis: (4) UTI (urinary tract infection): (5) Community acquired pneumonia: (6) Hx of seizure disorder: (7) Severe intellectual disability: Plan patient is a 32-year-old female with past medical history with cerebral palsy, MRDD who is nonverbal. Also has history of epilepsy and requires two canes. Mom was at bedside at the time of admission exam, patient was at a daycare when she became more short of breath and was not able to clear her secretions. She was then brought to the Emergency Room for further evaluation and was found to have a urinary tract infection along with a left lower lobe pneumonia. No reported events overnight with exception of poor expectoration and clearing of secretions. She has been getting her bolus tube feeds and she still requiring oxygen to maintain saturations greater than ninety. This morning on exam, had several episodes of vomiting after tube feeds. Elevated liver enzymes. Fever overnight. symptoms and signs appear to be worsening. DS: Summary Hospital Course Hospital Course: (1) Aspiration pneumonia: ?Assessment and Plan: chest x-ray consistent with a left lower lobe pneumonia was placed on Vanc, Zosyn and Levaquin will stop vanc today but repeat Chest X-ray showed complete left lung effusion/infiltrate, urine culture negative. More concern for aspiration pneumonia with bolus feeds. Nutrition consult today for guidance on tube feeds and rate but none available for consult, pulmonary consult today for further recommendations: started scop patch for secretions but concern for mucus plug, may benefit from bronchoscopy but high risk for Ventilation after, would also need Pediatric bronch and ET tube possibly. Discussion with mom today at bedside and we all agreed that transfer to [facility] would be the best interest for the patient for higher level of care. Hold tube feeds for now. (2) UTI (urinary tract infection): ?Assessment and Plan: ?culture negative but will continue antibiotic therapy for #1 (3) Sepsis: ?Assessment and Plan: secondary to #1, was given fluid boluses resuscitation patient had tachycardia hypotension and elevated lactate elevated white blood cell count and a fever.lactate is now normal white blood cell count is still elevated. sepsis resolving. (4) History of gastrostomy tube placement: ?Assessment and Plan: continue tube feeds but concern for more aspiration with vomiting and overfeed. Nutrition consult for recommendations (5) Hx of seizure disorder: ?Assessment and Plan: continue Keppra and Depakote (6) Severe intellectual disability: ?Assessment and Plan: history of cerebral palsy with MRDD, patient is nonverbal, very difficult to clear own secreations and mucus, cannot even blow nose. Nursing has been providing frequent suction, we have tried vest therapy with PRN nebs. (7) elevated LFT's, RUQ ultrasound read pending, and could be due to vomiting or causing vomiting. IVF, zofran as needed. acute cholecystitis? lipase normal Transfer to [facility], once bed is available. Status at Discharge Functional status at discharge: bed bound Time Spent with Patient Time attestation: Total time spent providing and/or coordinating discharge services: Exam Narrative Exam Narrative: no Changes in exam at the time of discharge from the progress note dated today Constitutional Vital Signs, click to edit/add: Last Vital Signs Temp 98.6 F 10/27/22 11:34 Pulse 123 H 10/27/22 13:00 Resp 37 H 10/27/22 11:19 BP 131/92 H 10/27/22 11:19 Pulse Ox 92 L 10/27/22 11:19 O2 Del Method Nasal Cannula 10/27/22 04:00 O2 Flow Rate 2 10/27/22 04:00 DS: Data Data Completed and Pending Labs on day of discharge: Labs from last 24 hours 10/27/22 10/25/22 09:07 15:58 WBC 15.3 H RBC 3.62 L Hgb 10.5 L Hct 32.6 L MCV 90.1 MCH 29.0 MCHC 32.2 RDW 12.8 Plt Count 259 MPV 10.5 Seg Neuts % (Manual) 82.0 Band Neutrophils % 1.0 Lymphocytes % (Manual) 6.0 L Monocytes % (Manual) 11.0 Eosinophils % (Manual) 0.0 L Basophils % (Manual) 0.0 L Neutrophils # (Manual) 12.54 H Band Neutrophils # 0.2 Lymphocytes # (Manual) 0.91 L Monocytes # (Manual) 1.68 H Eosinophils # (Manual) 0.00 Basophils # (Manual) 0.00 Sodium 136 Potassium 4.0 Chloride 101 Carbon Dioxide 25.8 Anion Gap 13.2 BUN 18.0 Creatinine 0.81 Est GFR ( Amer) >60 Est GFR (Non-Af Amer) >60 BUN/Creatinine Ratio 22.2 Glucose 149 H Calcium 8.9 Total Bilirubin 0.2 AST 184 H ALT 219 H Alkaline Phosphatase 185 H Total Protein 6.9 Albumin 1.9 L Globulin 5.0 Albumin/Globulin Ratio 0.4 Lipase 72.0 L SARS-CoV-2 RNA (AUREA) Not detected Discharge Plan Discharge Disposition: [facility] Discharge location: transfer to [facility]
[2022-10-27] MEDS: ACETAMINOPHEN 325 MG TABLET 650 MG G-TUBE ×2 (14:31→21:20)
[2022-10-27 16:21] LABS: Vancomycin Trough 19.4 ug/mL (5.0-20.0)
--- NOTE | 2022-10-27 20:02 | NUTR.NU ---
Nutrition Note: Notified of Dietitian consult to evaluate tube feeding. Patient on bolus feeding with vomiting, aspiration. Upon review of chart, noted patient is being transferred to another facility. Will follow-up and re-evaluate if patient does not transfer as planned.
[2022-10-27] MEDS: LEVALBUTEROL HCL 1.25 MG/3 ML VIAL NEB IH (21:45)
[2022-10-27] MEDS: ENOXAPARIN SODIUM 40 MG/0.4 ML SYRINGE SUBQ (21:46)
== END 2022-10-27 23:55 | disposition short-term general hospital (02) | DRG 720 ==
LOC: ER 15:21 → ICU 17:41
PROVIDERS: Admitting Provider Internal Medicine; Emergency Provider Emergency Medicine; PCP Nurse Practitioner; Visit Provider Family Medicine
DX: A41.9 Sepsis, unspecified organism (principal); J18.9 Pneumonia, unspecified organism; G80.9 Cerebral palsy, unspecified; J69.0 Pneumonitis due to inhalation of food and vomit; N39.0 Urinary tract infection, site not specified; J90 Pleural effusion, not elsewhere classified; G40.909 Epilepsy, unspecified, not intractable, without status epilepticus; H91.90 Unspecified hearing loss, unspecified ear; H54.7 Unspecified visual loss; Z79.899 Other long term (current) drug therapy; Z93.1 Gastrostomy status; R79.89 Other specified abnormal findings of blood chemistry; F72 Severe intellectual disabilities; Z99.89 Dependence on other enabling machines and devices; Z20.822 Contact with and (suspected) exposure to COVID-19; Z88.2 Allergy status to sulfonamides; J96.01 Acute respiratory failure with hypoxia; R65.20 Severe sepsis without septic shock; R63.6 Underweight; Z68.1 Body mass index [BMI] 19.9 or less, adult
CPT/HCPCS: 36415; 71045; 76700; 80048; 80053; 80202; 81003; 83605; 83690; 83880; 84484; 85007; 85025; 87040; 87086; 87635; 87811; 93005; 94640; 94667; 94668; 94761; 96365; 96366; 96367; 96368; 96372; 96375; 96376; 99285; J2930; J3370; Q3014

== ENCOUNTER 2022-11-17 13:15 | Outpatient (REF) | payer MEDICAID, SELFPAY ==
[2022-11-17 14:00] LABS: Basophils Percent Auto 0.7 % (0.2-2.0); Eosinophils Absolute Auto 0.1 10^3/uL (0.0-0.7); Eosinophils Percent Auto 1.6 % (0.9-7.0); Hemoglobin 9.2 g/dL (12.0-16.0); Immature Granulocytes Abs Auto 0.02 10^3/uL (0.00-0.03); Immature Granulocytes Pct Auto 0.3 % (0.0-0.5); Lymphocytes Absolute Auto 1.5 10^3/uL (1.2-3.8); Lymphocytes Percent Auto 25.5 % (20.5-60.0); Mean Corpuscular HGB Conc 31.7 g/dL (29.9-35.2); Mean Corpuscular Hemoglobin 29.8 pg (26.7-34.0); Mean Corpuscular Volume 93.9 fL (81.0-99.0); Mean Platelet Volume 10.5 fL (9.5-13.5); Monocytes Absolute Auto 0.5 10^3/uL (0.3-0.8); Monocytes Percent Auto 8.5 % (1.7-12.0); Neutrophils Absolute Auto 3.7 10^3/uL (1.4-6.5); Neutrophils Percent Auto 63.4 % (43.0-75.0); Platelet Count 585 10^3/uL (150-450); Red Blood Count 3.09 10^6/uL (4.20-5.40); Red Cell Distribution Width 16.2 % (11.0-15.0); White Blood Count 5.8 10^3/uL (4.0-11.0)
[2022-11-17 14:16] LABS: Alanine Aminotransferase 73 U/L (14-59); Albumin Globulin Ratio 0.5; Albumin Level 2.8 g/dL (3.4-5.0); Alkaline Phosphatase 409 U/L (46-116); Anion Gap 13.4; Aspartate Amino Transferase 59 U/L (15-37); BUN Creatinine Ratio 43.2; Bilirubin Direct 0.1 mg/dL (0.0-0.2); Bilirubin Total 0.2 mg/dL (0.2-1.0); Calcium 9.2 mg/dL (8.5-10.1); Carbon Dioxide 30.4 mmol/L (21.0-32.0); Chloride 98 mmol/L (98-107); Estimated GFR (African America >60 (>=60); Estimated GFR (Non-African Ame >60 (>=60); Globulin 5.9 g/dL; Glucose 94 mg/dL (74-106); Potassium 4.8 mmol/L (3.5-5.1); Sodium 137 mmol/L (136-145); Total Protein 8.7 g/dL (6.4-8.2)
== END 2022-11-17 13:16 | disposition home or self-care (01) ==
LOC: LAB 13:15
PROVIDERS: PCP Nurse Practitioner
DX: J18.9 Pneumonia, unspecified organism (principal)
CPT/HCPCS: 36415; 80053; 80076; 82248; 85025

== ENCOUNTER 2022-12-01 15:34 | Outpatient (OUT) | payer MEDICAID, SELFPAY ==
--- NOTE | 2022-12-01 15:42 | XR_ITS ---
The [address] [address] Patient Name: JT BECERRIL MRN: [id number] date: 1990 Sex: F Assigned Patient Location: [facility] Current Patient Location: RAD Accession/Order Number: [id number] Exam Date: 12/01/2022 15:50 Report Date: 12/01/2022 16:11 At the request of: NON-STAFF PHYSICIAN Procedure: XR chest 2V EXAM: XR chest 2V HISTORY: Empyema J86.9 COMPARISON: 10/27/2022 TECHNIQUE: 2 views chest FINDINGS: Previous opacification of the left chest now nearly completely resolved. There is trace residual left effusion. Otherwise left lung is clear. Right lung is also well aerated. No pneumothorax. Bony vasculature is normal. Heart size within normal limits. There is thoracic dextroscoliosis with stabilization rods in the thoracal lumbar spine. XR/XR chest 2V IMPRESSION: 1. Trace left effusion with otherwise clear lungs. Marked improvement in previous complete whiteout of left chest since study 10/27/2022. Electronically authenticated by: ZAFAR CONTRERAS Date: 12/01/2022 16:11
== END 2022-12-01 15:35 | disposition home or self-care (01) ==
LOC: RAD 15:35
PROVIDERS: PCP Nurse Practitioner
DX: J86.9 Pyothorax without fistula (principal)
CPT/HCPCS: 71046

== ENCOUNTER 2023-09-09 14:39 | Emergency (ER) | payer MEDICAID, SELFPAY ==
[2023-09-09 14:44] VITALS: BP 158/100; PULSE 109; TEMP 36.9; O2SAT 98; BMI 13.6
--- NOTE | 2023-09-09 14:45 | XR_ITS ---
The [address] [address] Patient Name: JT BECERRIL MRN: [id number] date: 1990 Sex: F Assigned Patient Location: ER Current Patient Location: ER Accession/Order Number: [id number] Exam Date: 09/09/2023 15:00 Report Date: 09/09/2023 16:22 At the request of: SALLY GAUILAR Procedure: XR acute abdomen series EXAM: XR acute abdomen series HISTORY: Cough, vomiting. Concern for aspiration. COMPARISON: Chest x-ray 12/01/2022. TECHNIQUE: AP chest x-ray with upright and supine abdominal x-rays. FINDINGS: Cardiac size appears unchanged. Interstitial thickening with decreased inspiratory effort. No dense consolidative change, pneumothorax, or effusion is identified. Gastrostomy tube overlies the left upper quadrant. There is prominent stool throughout the colon. Rectum is distended 11.3 cm which could be related to fecal impaction. No bowel obstruction is seen. No air-fluid levels. No intraperitoneal free air identified. S-shaped curvature of the thoracolumbar spine with posterior fusion. XR/XR acute abdomen series IMPRESSION: 1. Marked constipation. Stool distends the rectum 11.3 cm which may indicate fecal impaction. No bowel obstruction. 2. Interstitial thickening likely related to low lung volumes. Alternatively, this could be secondary to bronchitis. Electronically authenticated by: SALLY TOWNSEND Date: 09/09/2023 16:22
--- NOTE | 2023-09-09 14:47 | ED.GENADUL1 ---
HPI HPI - General Adult General Chief complaint: Nausea/Vomiting/Diarrhea Stated complaint: choking/vomitting Time Seen by Provider: 09/09/23 14:44 Source: patient and family Mode of arrival: ambulance Limitations: language barrier History of Present Illness HPI narrative: Patient is a 33-year-old female with a history of cerebral palsy, seizure, minimally verbal. Presents with from adult [facility] facility for evaluation of possible aspiration. Patient has a PEG tube for tube feeding, was witnessed by staff to be laughing when she then vomited. Their concern is that she has a history of aspiration pneumonia last year in October. Patient's father arrived at bedside upon arrival to the ER and advised the patient has had copious nasal drainage for the past several days which she has been suctioning at home and believes that she likely gagged on her drainage causing her to vomit. There is been no reported fever or illness there was no syncopal event with the episode and EMS transfer was made at the bedside by myself. Patient alert, attentive and does not appear in any distress. Related Data Home Medications ?Medication ?Instructions ?Recorded ?Confirmed levetiracetam 100 mg/mL oral 250 mg feeding tube Q12H 10/25/22 10/26/22 solution (Keppra) valproic acid (as sodium salt) 250 250 mg feeding tube BID 10/26/22 10/26/22 mg/5 mL (5 mL) oral solution Allergies Allergy/AdvReac Type Severity Reaction Status Date / Time Sulfa (Sulfonamide Allergy Intermediate Verified 10/25/22 12:31 Antibiotics) Opioid HPI Opioid Management Most Recent Opioid Data: Last Pain Scale 6 10/25/22 15:53 Review of Systems ROS Status of ROS unobtainable due to mental status Constitutional Denies: fever or chills Ears, nose, mouth, and throat Reports: nasal discharge and nasal congestion Gastrointestinal Denies: nausea PFSH PFSH Medical History (Updated 09/09/23 @ 15:43 by NGOC López) Visual impairment ?H54.7 - Unspecified visual loss (ICD-10) Hearing impairment ?H91.90 - Unspecified hearing loss, unspecified ear (ICD-10) History of gastrostomy tube placement Scoliosis ?M41.9 - Scoliosis, unspecified (ICD-10) Hx of seizure disorder ?Z86.69 - Personal history of other diseases of the nervous system and sense organs (ICD-10) Severe intellectual disability ?F72 - Severe intellectual disabilities (ICD-10) Surgical History Exam Narrative Exam Narrative: Nurses notes and vital signs reviewed and patient is not hypoxic. General: The patient appears Alert, attentive in no acute distress, yellowish emesis noted on shirt Skin: Warm, dry, no pallor noted. no evidence of rash Head: Normocephalic, atraumatic Neck: Supple, trachea mid-line, no tenderness, no lymphadenopathy Eye: no drainage or discharge. Ears, Nose, Mouth, and Throat: TM are clear, normal light reflex, oral mucosa is moist, no posterior oropharynx erythema or hypertrophy, uvula is mid-line, + post nasal drainage. Cardiovascular: Regular Rate and Rhythm Respiratory: Patient is in no distress, no accessory muscle use, lungs are clear to auscultation, no wheezing, rales or rhonchi. Chest Wall: no tenderness Back: non-tender Musculoskeletal: normal ROM, no tenderness, no swelling GI: Normal bowel sounds, g tube present, no tenderness to palpation No rebound, guarding, or rigidity noted. Neurological: Alert, easily responsive to stimuli Psychiatric: Cooperative Constitutional Vital Signs, click to edit/add: Last Vital Signs Temp 98.4 F 09/09/23 14:44 Pulse 109 H 09/09/23 14:44 Resp 20 09/09/23 14:44 BP 158/100 H 09/09/23 14:44 Pulse Ox 98 09/09/23 14:44 O2 Del Method Room Air 09/09/23 14:44 Course Vital Signs Vital signs: Vital Signs Temperature 98.4 F 09/09/23 14:44 Pulse Rate 109 H 09/09/23 14:44 Respiratory Rate 20 09/09/23 14:44 Blood Pressure 158/100 H 09/09/23 14:44 Pulse Oximetry 98 09/09/23 14:44 Oxygen Delivery Method Room Air 09/09/23 14:44 Temperature 98.4 F 09/09/23 14:44 Pulse Rate 109 H 09/09/23 14:44 Respiratory Rate 20 09/09/23 14:44 Blood Pressure 158/100 H 09/09/23 14:44 Pulse Oximetry 98 09/09/23 14:44 Oxygen Delivery Method Room Air 09/09/23 14:44 Medical Decision Making MDM Narrative Medical decision making narrative: Care staff report patient vomiting after laughing, father believes her nasal congestion likely contributed as she does not swallow well. Patient has a PEG tube. There is been no further vomiting. Patient has stable vitals given recent events, chest x-ray performed, lungs are clear. Ab series performed in case of ileus or obstruction. Patient was observed with no deterioration in clinical status. Recommend close observation to the weekend and return to the ER if any symptoms develop. Patient reevaluated, she has not hypoxic, she is in no distress visited with family at bedside. Patient's lungs are still clear to auscultation. There is been no further vomiting or choking or coughing sensation. Father is agreeable to observe over the weekend. We discussed chest x-ray with relatively clear lungs, we discussed her abdominal x-ray with notable stool [place]. Patient's father reports constipation has been an ongoing issue, they typically treat with MiraLAX but when she goes to a coparents house they are not typically giving MiraLAX regularly. He feels comfortable taking her home, reinstituting MiraLAX regime and watching for BM. If any things worsen or new symptoms develop they will bring patient back to the ER for reevaluation. Specifically watching for any fevers chills or change in mentation. The patient is to followup with primary care physician in next 2-3 days or to return to the emergency department should any of the signs or symptoms worsen or new symptoms develop. Patient had questions answered. The patient agrees with the following Diagnosis and Treatment plan and the patient will be discharged home. Lab Data Lab results reviewed: Yes I reviewed the patient's lab results Labs: Lab Results 09/09/23 Range/Units 14:50 Influenza Type A Ag Negative Influenza Type B Ag Negative RSV Antigen Not detected (NOT DETECTE) SARS-CoV-2 Ag (CV2AG) Negative (NEGATIVE) Imaging Data Chest x-ray: My impression: No acute infiltrate, large stool burden, notable stool in the rectal vault. Radiologist's impression: ITS Impressions Chest/Abdomen X-ray 09/09/23 14:45 IMPRESSION: 1. Marked constipation. Stool distends the rectum 11.3 cm which may indicate fecal impaction. No bowel obstruction. 2. Interstitial thickening likely related to low lung volumes. Alternatively, this could be secondary to bronchitis. Electronically authenticated by: SALLY TOWNSEND Date: 09/09/2023 16:22 Discharge Plan Discharge Stand Alone Forms: Portal Instructions Chief Complaint: Nausea/Vomiting/Diarrhea Clinical Impression: Vomiting, Nasal drainage, Constipation Patient Disposition: Home, Self-Care Time of Disposition Decision: 15:42 Condition: Good Prescriptions / Home Meds: No Action levetiracetam [Keppra] 100 mg/mL solution 250 mg feeding tube Q12H Patient Comments: PER MOTHER - WANTS TO USE HOME MEDICATON IN THE HOSPITAL Rx Instructions: PER RETAIL FILL HX, TALKING WITH MOTHER, AND LOOKING AT HOME MEDICATION BOTTLE - PATIENTS HOME MED IS LEVETIRACETAM 100MG/ML SOLUTION PER G-TUBE Q12HRS valproic acid (as sodium salt) 250 mg/5 mL (5 mL) solution 250 mg feeding tube BID Patient Comments: PER MOTHER - WANTS TO USE HOME MEDICATION IN THE HOSPITAL Rx Instructions: PER RETAIL FILL HX, TALKING WITH MOTHER, AND LOOKING AT HOME MEDICATION BOTTLE PATIENTS HOME MED IS VALPROIC ACID 250MG/5ML SOLUTION - TAKE [id number] PER G-TUBE TWICE A DAY Print Language: Yoruba Instructions: Acute Nausea and Vomiting (ED) Referrals: [facility] [Primary Care Provider] - As soon as possible Discharge Date/Time: 09/09/23 15:54
[2023-09-09 15:21] LABS: Influenza Virus A Antigen Negative; Influenza Virus B Antigen Negative; Internal Control Within Normal Limits; Respiratory Syncytial Virus Not Detected (NOT DETECTE); SARS-CoV-2 Ag NEGATIVE (NEGATIVE)
== END 2023-09-09 15:54 | disposition home or self-care (01) ==
PROVIDERS: Personal Emergency Response Attendant; Emergency Provider Emergency Medicine Emergency Medical Services; PCP Nurse Practitioner
DX: K59.00 Constipation, unspecified (principal); R11.10 Vomiting, unspecified; R09.81 Nasal congestion; Z93.1 Gastrostomy status; G80.9 Cerebral palsy, unspecified; Z20.822 Contact with and (suspected) exposure to COVID-19
CPT/HCPCS: 74022; 87420; 87804; 87811; 99284

== ENCOUNTER 2023-09-11 11:24 | Observation (INO) | payer MEDICAID, SELFPAY ==
[2023-09-11] VITALS (11 sets, daily range): BP systolic 104–132; BP diastolic 60–93; PULSE 103–125; TEMP 37.6–39.5; O2SAT 94–99; BMI 15.5
--- OUTSIDE RECORDS SUMMARY | 2023-09-11 11:32 | XMS_ITS | CCD ---
Author Organization [facility] CliniSymt Care Team Providers Care Assembler Dc Field Ring Name Role Phone PAY ., DR ZENG Attending Unavailable MCQUEEN ., DR ADAM Emerson Primary Care Unavailable PAY ., DR ZENG Admitting Unavailable PAY ., DR ZENG Consulting Unavailable SHAKIR MARTINEZ Consulting Unavailable VALORIE, DR ADAMS Attending Unavailable VALORIE, DR ADAMS Admitting Unavailable CHARISSE ., DR ADAM Emerson Primary Care Unavailable VALORIE, DR ADAMS Consulting Unavailable Bolaños DONOR SERVICES TEAM LEADER-CLIENT RESOLUTION SPECIALIST, Ree J Primary Care Provid er JAYA REE J Primary Care Unavailable CHELSI HOUSE Attending Unavailable CHELSI HOUSE Attending Unavailable CHELSI HOUSE Referring Unavailable BOLAÑOS, REE J Primary Care Unavailable Bolaños DONOR SERVICES TEAM LEADER-CLIENT RESOLUTION SPECIALIST, Ree J Primary Care Provid er REE BOLAÑOS Attending Unavailable BOLAÑOS, REE J Referring Unavailable BOLAÑOS, REE J Primary Care Unavailable KIMBERLY JENSEN Attending Unavailable BOLAÑOS, REE J Referring Unavailable BOLAÑOS, REE J Primary Care Unavailable CARL ROGERS Admitting Unavailable CARL ROGERS Attending Unavailable CARL ROGERS Referring Unavailable BOLAÑOS, REE J Primary Care Unavailable CITLALY RENAE Attending Unavailable BOLAÑOS, REE J Primary Care Unavailable BOLAÑOS, REE J Referring Unavailable BOLAÑOS, REE J Primary Care Unavailable BRYAN EUGENE Attending Unavailable Allergies Allergy Classification Reported Allergen(s) Allergy Type Date of Onset Reaction(s) Facility (1 source) Sulfonamides (Antibiotic) Drug allergy (disorder) 7 [facility] Repository (6 sources) Sulfonamides (Antibiotic); Translations: [SULFA (SULFONAMIDE ANTIBIOTICS)] Propensity to adverse reactions to drug 6 [facility] Work Phone: Medications Current Medications Medication Drug Class(es) Dates Sig (Normalized) Sig (Original) albuterol 0.83 mg/ml inhalation solution (3 sources) beta2-Adrenergic Agonist take 1 dose by inhalation every four hours albuterol (PROVENTIL,VENTOLIN) 2.5 mg /3 mL (0.083 %) nebulizer solution INHALE CONTENTS OF 1 VIAL IN NEBULIZER EVERY 4 HOURS 0 Active blood pressure test kit-small kit (3 sources) Start: 11-11-2022 End: 05-31-2023 blood pressure test kit-small kit 1 kit by miscellaneous route continuously. 1 each 0 11/11/2022 05/31/2023 Discontinued Start: 11-11-2022 blood pressure test kit-small kit 1 kit by miscellaneous route continuously. 1 each 0 11/11/2022 Active glycopyrrolate 2 mg oral tab let (4 sources) Start: 05-31-2023 glycopyrrolate (ROBINUL) 2 MG tablet Indications: Salivation excessive give 1 tablet PER TUBE every morning and BEFORE BEDTIME 60 tablet 6 05/31/2023 Active Start: 01-17-2023 End: 05-31-2023 glycopyrrolate (ROBINUL) 2 M G tablet Indications: Salivation excessive give 1 tablet PER TUBE every morning and BEFORE BEDTIME 60 tablet 6 01/17/2023 05/31/2023 Discontinued (Reorder) levETIRAcetam 100 mg/ml oral solution (4 sources) Start: 05-31-2023 levETIRAcetam (KEPPRA) 100 mg/mL solution Indications: Seizure disorder ([facility]) Administer 5 mL (500 mg total) per tube in the morning and 5 mL (500 mg total) before bedtime. 100MG/ML 5 ml q12. 473 mL 6 05/31/2023 Active End: 05-31-2023 levETIRAcetam (KEPPRA) 100 m g/mL solution Administer 5 mL (500 mg total) per tube in the morning and 5 mL (500 mg total) before bedtime. 100MG/ML 5 ml q12. 0 05/31/2023 Discontinued (Reorder) metoprolol tartrate 25 mg oral tablet (4 sources) beta-Adrenergic Krish Start: 05-23-2023 End: 05-31-2023 metoprolol tartrate (LOPRESSOR) 25 mg tablet Indications: Benign essential HTN ADMINISTER 1 TAB PER TUBE TWICE DAILY 60 tablet 2 05/23/2023 05/31/2023 Discontinued (Therapy completed) Start: 02-08-2023 End: 05-23-2023 metoprolol tartrate (LOPRESS OR) 25 mg tablet Indications: Benign essential HTN Administer 1 tablet (25 mg total) per tube in the morning and 1 tablet (25 mg total) before bedtime. 60 tablet 3 02/08/2023 05/23/2023 Discontinued ondansetron 4 mg disintegrating oral tablet (3 sources) Serotonin-3 Receptor Antagonist Start: 03-10-2023 End: 05-31-2023 take 1 tablet by mouth every eight hours as needed for nausea and vomiting and nausea and nausea ondansetron ODT (ZOFRAN ODT) 4 mg disintegrating tablet Indications: Nausea Dissolve 1 tablet (4 mg total) on tongue every 8 (eight) hours as needed for nausea or vomiting. 20 tablet 1 03/10/2023 05/31/2023 Discontinued valproic acid 50 mg/ml oral solution (4 sources) Mood Stabilizer, Anti-epileptic Agent Start: 05-31-2023 valproic acid, as sodium salt, (DEPAKENE) 250 mg/5 mL (5 mL) solution Indications: Seizure disorder (CMS-HCC) Administer 5 mL (250 mg total) per tube in the morning and 5 mL (250 mg total) before bedtime. 300 mL 6 05/31/2023 Active End: 05-31-2023 valproic acid, as sodium sujit t, (DEPAKENE) 250 mg/5 mL (5 mL) solution Administer 5 mL (250 mg total) per tube in the morning and 5 mL (250 mg total) before bedtime. 0 05/31/2023 Discontinued (Reorder) Problems Active Problems Problem Classification Problem Date Documented Da te Episodic/Chronic Biliary tract disease (5 sources) Cholelithiasis without obstruction; Translations: [Calculus of gallbladder without cholecystitis without obstruction] Onset: 3 04-14-2023 Episodic Complication of device; implant or graft (1 source) Other mechanical complication of other gastrointestinal prosthetic devices, implants and grafts, initial encounter; Translations: [Other mechanical complication of other gastrointestinal prosthetic devices, implants and grafts, initial encounter] Onset: 4 Episodic Deficiency and other anemia (1 source) Iron deficiency anemia; Translations: [Other iron deficiency anemias] 05-31-2023 Episodic Deficiency and other anemia (2 sources) Other iron deficiency anemias; Translations: [Other iron deficiency anemias] Onset: 4 Episodic Epilepsy; convulsions (9 sources) Epilepsy, unspecified, not intractable, without status epilepticus; Translations: [Seizure disorder] Onset: 3 Chronic Essential hypertension (4 sources) Benign essential hypertension; Translations: [Essential (primary) hypertension] Onset: 4 05-21-2023 Chronic Fever of unknown origin (1 source) Fever, unspecified; Translations: [FEVER UNSPECIFIED] Onset: 3 Episodic Other aftercare (1 source) Other senior care (current) drug therapy; Translations: [OTH MANAGER SOCIAL RESPONSIBILITY CURRENT DRUG THERAPY] Onset: 3 Episodic Other gastrointestinal disorders (1 source) Gastrostomy status; Translations: [GASTROSTOMY STATUS] Onset: 3 Chronic Other liver diseases (1 source) Elevated liver enzymes level; Translations: [Abnormal levels of other serum enzymes] 05-31-2023 Episodic Other liver diseases (2 sources) Abnormal levels of other serum enzymes; Translations: [Abnormal levels of other serum enzymes] Onset: 4 Episodic Other nervous system disorders (1 source) Other acute postprocedural pain; Translations: [Other acute postprocedural pain] Onset: 3 Episodic Other upper respiratory disease (1 source) Other specified disorders of nose and nasal sinuses; Translations: [OTH SPEC D/O NOSE NASAL SINUSES] Onset: 3 Episodic Other upper respiratory infections (1 source) Acute upper respiratory infection, unspecified; Translations: [ACUTE UP RESPIRATORY INFECTION UNS] Onset: 3 Episodic Paralysis (4 sources) Cerebral palsy, unspecified; Translations: [Cerebral palsy] Onset: 3 10-29-2022 Chronic Unclassified (2 sources) COUGH, UNSPECIFIED; Translations: [COUGH, UNSPECIFIED] Onset: 3 Unclassified (2 sources) Feeding Tube Problem Onset: 4 Unclassified (1 source) Post-op Onset: 4 Unclassified (1 source) CHOLELITHIASIS Onset: 3 Viral infection (1 source) COVID-19; Translations: [COVID-19] Onset: 3 Past or Other Problems Problem Classification Problem Date Documented Da te Episodic/Chronic Acute and unspecified renal failure (3 sources) Acute injury of kidney; Translations: [Acute kidney failure, unspecified] Onset: 3 10-29-2022 Episodic Diseases of mouth; excluding dental (5 sources) Excessive salivation; Translations: [Disturbances of salivary secretion] Onset: 7 12-01-2016 Episodic Gastrointestinal hemorrhage (3 sources) Lower gastrointestinal hemorrhage; Translations: [Gastrointestinal hemorrhage, unspecified] Onset: 3 08-30-2022 Episodic Mood disorders (3 sources) Mood disorders Onset: 3 Resolved: 4 02-08-2023 Neoplasms of unspecified nature or uncertain behavior (3 sources) Thrombocytosis; Translations: [Thrombocytosis] Onset: 3 11-08-2022 Episodic Other liver diseases (3 sources) Enzyme level - finding; Translations: [Transaminitis] Onset: 3 10-29-2022 Episodic Otitis media and related conditions (3 sources) Chronic otitis media; Translations: [Otitis media, unspecified, unspecified ear] Onset: 7 12-01-2016 Episodic Pneumonia (except that caused by tuberculosis or sexually transmitted disease) (3 sources) Pneumonia; Translations: [Pneumonia, unspecified organism] Onset: 3 10-28-2022 Episodic Unclassified (1 source) COUGH, UNSPECIFIED; Translations: [COUGH, UNSPECIFIED] Onset: 3 Unclassified (3 sources) Onset: 3 12-07-2022 Results Test Name Value Interpretation Reference Range Facil ity IRON PROFILEon 05-31-2023 Iron [Mass/Vol] 66 ug/dL Normal 50-170 [facility] Comment on above: Performed By: #### F EPR, LIVR #### [facility] ([id number]) [address] [place] [address] IRON BINDING 417 ug/dL Normal 250-425 [facility] Comment on above: Performed By: #### F EPR, LIVR #### [facility] ([id number]) [address], [address] [place] [address] IRON SATURATION 16 % SATURATION Normal 15-50 [facility] Comment on above: Performed By: #### F EPR, LIVR #### [facility] ([id number]) [address], [address] [place] [address] LIVER PANELon 05-31-2023 Albumin [Mass/Vol] 4.3 g/dL Normal 3.2-5.3 [facility] Comment on above: Performed By: #### F EPR, LIVR #### [facility] ([id number]) [address], [address] [place] [address] ALP [Catalytic activity/Vol] 104 U/L Normal 39-130 [facility] Comment on above: Performed By: #### F EPR, LIVR #### [facility] ([id number]) [address], [address] [place] [address] ALT [Catalytic activity/Vol] 79 U/L High 0-31 [facility] Comment on above: Performed By: #### F EPR, LIVR #### [facility] ([id number]) [address], [address] [place] [address] AST [Catalytic activity/Vol] 59 U/L High 0-41 [facility] Comment on above: Performed By: #### F EPR, LIVR #### [facility] ([id number]) [address], [address] [place] [address] Bilirubin [Mass/Vol] 0.3 mg/dL Normal 0.3-1.2 [facility] Comment on above: Performed By: #### F EPR, LIVR #### [facility] ([id number]) [address], [address] [place] [address] Bilirubin.direct [Mass/Vol] 0.1 mg/dL Normal 0.0-0.4 [facility] Comment on above: Performed By: #### F EPR, LIVR #### [facility] ([id number]) [address], [address] [place] [address] Protein [Mass/Vol] 8.0 g/dL Normal 6.0-8.0 [facility] Comment on above: Performed By: #### F EPR, LIVR #### [facility] ([id number]) [address], [address] [place] [address] XR ABDOMEN AP 1 VWon 024 XR ABDOMEN AP 1 VW XR ABDOMEN AP 1 VW XR ABDOMEN AP 1 VW HISTORY: PEG tube placement COMPARISON: 08/12/2022 TECHNIQUE: AP supine view of the abdomen. FINDINGS/IMPRESSION: * Percutaneous gastrostomy tube in place, injected contrast material outlines the gastric rugae. No extravasated contrast material present. * Heavy rectal stool burden suggestive of fecal impaction. Nonobstructive bowel gas pattern, similar to prior examination. Approved by Resident: Beni Donahue MD on 05/15/2023 4:55 PM I, Delano Ayala MD have personally reviewed the image(s) and agree with and/or edited the report Finalized by Delano Ayala MD on 05/15/2023 5:02 PM Normal [facility] Surgical Pathologyon 023 Surgical Pathology Normal [facility] Comment on above: Result Comment: [facility] [address] [place] [address] Surgical Pathology Consultation Patient Name:JT WILSON:1990 (Age: 33)Gender:FTaken:03/31/2023Reported:04/08/2023hysician(s):Carl Rogers M.D. ( )Copy To: Rec. #:[id number]: #[id number] Final Pathologic Diagnosis Gallbladder, cholecystectomy: Active chronic cholecystitis and cholelithiasis with focal mucosal erosion. Two benign periductal lymph nodes present. Report Electronically Signed Out ao/04/08/2023kathryn Casey MD Interpretation performed at [facility], [address] [place] [address], License number: [id number]. Clinical History Cholelithiasis. Gross Description Received in formalin labeled JERRICA, gallbladder is an intact gallbladder that measures, 9.0 x 2.6 x 2.0 cm with a cystic duct of 0.2 cm. Two pink-montoya lymph node are identified adjacent to the cystic duct, 0.9 cm and 1.1 cm. The smaller lymph node is inked black. The lymph nodes are serially sectioned and trisected, respectively, and are submitted in cassette B. The gallbladder serosal surface is montoya-purple with an area of montoya-purple granular soft tissue consistent with hepatic bed. The gallbladder is opened and filled with green-brown tenacious bile. Brown smooth calculi are identified within the lumen, 0.2-1.8 cm. The mucosa is montoya-purple velvety, semi-flattened and trabeculated. The gallbladder wall is 0.2-0.3 cm in thickness. Manufacturers Representative cross-sections are submitted within cassette A. (2, ss, [id number],m6) DM. dm/03/31/2023SSI Specimen(s) Received Gallbladder Fee Codes(s): 1; 96993 LEVETIRACETAM, SERUM OR PLAS MAon 07-12-2022 Levetiracetam, S 28.2 ug/mL Normal 10.0-40.0 [facility] Comment on above: Performed By: #### K EPPRA #### [facility] [address] [place] [id number] [address] Gurmeet Ivan CBC AUTO DIFFon 07-08-2022 BASO # 0.0 103/ul Normal 0.0-0.1 [facility] Comment on above: Performed By: #### C BC #### [facility] [address] [place] [address] Dr. Gurmeet Ivan Basophils/100 WBC (Bld) 0.4 % Normal 0.2-2.0 [facility] Comment on above: Performed By: #### C BC #### [facility] [address] [place] [address] Dr. Gurmeet Ivan EO # 0.1 103/ul Normal 0.0-0.7 [facility] Comment on above: Performed By: #### C BC #### [facility] [address] [place] [address] Dr. Gurmeet Ivan Eosinophils/100 WBC (Bld) 1.0 % Normal 0.9-7.0 [facility] Comment on above: Performed By: #### C BC #### [facility] [address] [place] [address] Dr. Gurmeet Ivan Erythrocyte distribution width (RBC) [Ratio] 13.6 % Normal 11.0-15.0 [facility] Comment on above: Performed By: #### C BC #### [facility] [address] [place] [address] Dr. Gurmeet Ivan Hematocrit (Bld) [Volume fraction] 38.9 % Normal 36.0-48.0 [facility] Comment on above: Performed By: #### C BC #### [facility] [address] [place] [address] Dr. Gurmeet Ivan Hemoglobin (Bld) [Mass/Vol] 13.0 g/dL Normal 12.0-16.0 [facility] Comment on above: Performed By: #### C BC #### [facility] [address] [place] [address] Dr. Gurmeet Ivan IG # 0.02 10e3/ul Normal 0.00-0.03 [facility] Comment on above: Performed By: #### C BC #### [facility] [address] [place] [address] Dr. Gurmeet Ivan IG % 0.3 % Normal 0.0-0.5 [facility] Comment on above: Performed By: #### C BC #### [facility] [address] [place] [address] Dr. Gurmeet Ivan LYMPH # 1.5 103/ul Normal 1.2-3.8 [facility] Comment on above: Performed By: #### C BC #### [facility] [address] [place] [address] Dr. Gurmeet Ivan Lymphocytes/100 WBC (Bld) 22.0 % Normal 20.5-60.0 [facility] Comment on above: Performed By: #### C BC #### [facility] [address] [place] [address] Dr. Gurmeet Ivan MANUAL DIFF REQ NO Normal [facility] Comment on above: Performed By: #### C BC #### [facility] [address] [place] [address] Dr. Gurmeet Ivan MCH (RBC) [Entitic mass] 29.3 pg Normal 26.7-34.0 [facility] Comment on above: Performed By: #### C BC #### [facility] [address] [place] [address] Dr. Gurmeet Ivan MCHC (RBC) [Mass/Vol] 33.4 g/dL Normal 29.9-35.2 [facility] Comment on above: Performed By: #### C BC #### [facility] [address] [place] [address] Dr. Gurmeet Ivan MCV (RBC) [Entitic vol] 87.8 fL Normal 81.0-99.0 [facility] Comment on above: Performed By: #### C BC #### [facility] [address] [place] [address] Dr. Gurmeet Ivan MONO # 0.5 103/ul Normal 0.3-0.8 [facility] Comment on above: Performed By: #### C BC #### [facility] [address] [place] [address] Dr. Gurmeet Ivan Monocytes/100 WBC (Bld) 6.6 % Normal 1.7-12.0 [facility] Comment on above: Performed By: #### C BC #### [facility] [address] [place] [address] Dr. Gurmeet Ivan NEUT # 4.8 103/ul Normal 1.4-6.5 [facility] Comment on above: Performed By: #### C BC #### [facility] [address] [place] [address] Dr. Gurmeet Ivan Neutrophils/100 WBC (Bld) 69.7 % Normal 43.0-75.0 [facility] Comment on above: Performed By: #### C BC #### [facility] [address] [place] [address] Dr. Gurmeet Ivan Platelet mean volume (Bld) [Entitic vol] 11.5 fL Normal 9.5-13.5 [facility] Comment on above: Performed By: #### C BC #### [facility] [address] [place] [address] Dr. Gurmeet Ivan PLT 229 103/ul Normal 150-450 [facility] Comment on above: Performed By: #### C BC #### [facility] [address] [place] [address] Dr. Gurmeet Ivan RBC 4.43 106/ul Normal 4.20-5.40 [facility] Comment on above: Performed By: #### C BC #### [facility] [address] [place] [address] Dr. Gurmeet Ivan WBC 6.9 103/ul Normal 4.0-11.0 [facility] Comment on above: Performed By: #### C BC #### [facility] [address] [place] [address] Dr. Gurmeet Ivan DEPAKENE/ VALPROIC ACIDon DEPAKENE 59.7 ug/ml Normal 50.0-100.0 [facility] Comment on above: Performed By: #### B MP, LIVER, VALP #### [facility] [address] [place] [address] Dr. Gurmeet Ivan LIVER PROFILEon 07-08-2022 Albumin [Mass/Vol] 3.7 g/dL Normal 3.4-5.0 [facility] Comment on above: Performed By: #### B MP, LIVER, VALP #### [facility] [address] [address] [address] Gurmeet Ivan Albumin/Globulin [Mass ratio] 0.8 {ratio} Normal [facility] Comment on above: Performed By: #### B MP, LIVER, VALP #### [facility] [address] [address] [address] Gurmeet Ivan ALP [Catalytic activity/Vol] 132 U/L Critically high 46-116 [facility] Comment on above: Performed By: #### B MP, LIVER, VALP #### [facility] [address] [address] [address] Gurmeet Ivan ALT [Catalytic activity/Vol] 51 U/L Normal 14-59 [facility] Comment on above: Performed By: #### B MP, LIVER, VALP #### [facility] [address] [place] [address] Dr. Gurmeet Ivan AST [Catalytic activity/Vol] 34 U/L Normal 15-37 [facility] Comment on above: Performed By: #### B MP, LIVER, VALP #### [facility] [address] [place] [address] Dr. Gurmeet Ivan BILI, CONJUGATED 0.1 mg/dL Normal 0.0-0.2 [facility] Comment on above: Performed By: #### B MP, LIVER, VALP #### [facility] [address] [place] [address] Dr. Gurmeet Ivan Bilirubin [Mass/Vol] 0.2 mg/dL Normal 0.2-1.0 [facility] Comment on above: Performed By: #### B MP, LIVER, VALP #### [facility] [address] [place] [address] Dr. Gurmeet Ivan Globulin (S) [Mass/Vol] 4.8 g/dL Normal [facility] Comment on above: Performed By: #### B MP, LIVER, VALP #### [facility] [address] [address] [address] Gurmeet Ivan Protein [Mass/Vol] 8.5 g/dL Critically high 6.4-8.2 [facility] Comment on above: Performed By: #### B MP, LIVER, VALP #### [facility] [address] [place] [address] Dr. Gurmeet Ivan PROF CHEM 8 (BAS METB)on Anion gap [Moles/Vol] 10.8 mmol/L Normal [facility] Comment on above: Performed By: #### B MP, LIVER, VALP #### [facility] [address] [place] [address] Dr. Gurmeet Ivan Calcium [Mass/Vol] 9.3 mg/dL Normal 8.5-10.1 [facility] Comment on above: Performed By: #### B MP, LIVER, VALP #### [facility] [address] [place] [address] Dr. Gurmeet Ivan Chloride [Moles/Vol] 101 mmol/L Normal 98-107 [facility] Comment on above: Performed By: #### B MP, LIVER, VALP #### [facility] [address] [place] [address] Dr. Gurmeet Ivan CO2 [Moles/Vol] 30.6 mmol/L Normal 21.0-32.0 [facility] Comment on above: Performed By: #### B MP, LIVER, VALP #### [facility] [address] [place] [address] Dr. Gurmeet Ivan Creatinine [Mass/Vol] 0.37 mg/dL Critically low 0.55-1.02 [facility] Comment on above: Performed By: #### B MP, LIVER, VALP #### [facility] [address] [place] [address] Dr. Gurmeet Ivan EGFR-AF INDONESIAN 247 mL/min/1.73m2 Normal >=60 [facility] Comment on above: Performed By: #### B MP, LIVER, VALP #### [facility] [address] [place] [address] Dr. Gurmeet Ivan EGFR-NON AF INDONESIAN 204 mL/min/1.73m2 Normal >=60 [facility] Comment on above: Performed By: #### B MP, LIVER, VALP #### [facility] [address] [address] [address] Gurmeet Ivan Glucose [Mass/Vol] 88 mg/dL Normal 74-106 [facility] Comment on above: Performed By: #### B MP, LIVER, VALP #### [facility] [address] [place] [address] Dr. Gurmeet Ivan Potassium [Moles/Vol] 4.4 mmol/L Normal 3.5-5.1 [facility] Comment on above: Performed By: #### B MP, LIVER, VALP #### [facility] [address] [address] [address] Gurmeet Ivan Sodium [Moles/Vol] 138 mmol/L Normal 136-145 [facility] Comment on above: Performed By: #### B MP, LIVER, VALP #### [facility] [address] [place] [address] Dr. Gurmeet Ivan Urea nitrogen [Mass/Vol] 17.0 mg/dL Normal 7.0-18.0 [facility] Comment on above: Performed By: #### B MP, LIVER, VALP #### [facility] [address] [address] [address] Gurmeet Ivan Urea nitrogen/Creatinin e [Mass ratio] 45.9 mg/mg Normal [facility] Comment on above: Performed By: #### B MP, LIVER, VALP #### [facility] [address] [place] [address] Dr. Gurmeet Ivan Covid-19 PCR ([facility])on 05-12 SARS-CoV-2 (COVID-19) RNA AUREA+probe Ql (Unsp spec) Detected Abnormal NOT DETECTED [facility] Comment on above: Result Comment: This test is not yet approved or cleared by the [place] FDA. When there are no FDA-approved or cleared tests available, and other criteria are met, FDA can make tests available under an emergency access mechanism called an Emergency Use Authorization (EUA). The EUA for this test is supported by the Fish Housekeeper of Health and Human Service's declaration that circumstances exist to justify the emergency use of in vitro diagnostics for the detection and/or diagnosis of the virus that causes COVID-19. This EUA will remain in effect for the duration of the COVID-19 declaration justifying emergency of IVDs, unless it is terminated or revoked by the FDA (after which the test may no longer be used). Performed By: #### C VDTB #### [facility] [address] [place] [address] Dr. Gurmeet Ivan INFLUENZA A AND B [facility] 05-28 [facility] SEE BELOW Normal [facility] Comment on above: Result Comment: Nega tive for Flu A protein angiten. Infection due to Flu A cannot be ruled out. Flu A angiten in the sample may be below the detection limit of the test. Performed By: #### I NFLUAB #### [facility] [address] [place] [address] Dr. Gurmeet [facility] SEE BELOW Normal [facility] Comment on above: Result Comment: Nega tive for Flu B protein antigen. Infection due to Flu B cannot be ruled out. Flu B antigen in the sample may be below the detection limit of the test. Performed By: #### I NFLUAB #### [facility] [address] [place] [address] Dr. Gurmeet Ivan INFLUENZA A AG Negative Normal NEGATIVE SEE COMMENT [facility] Comment on above: Performed By: #### I NFLUAB #### [facility] [address] [place] [address] Dr. Gurmeet Ivan INFLUENZA B AG Negative Normal NEGATIVE SEE COMMENT [facility] Comment on above: Performed By: #### I NFLUAB #### [facility] [address] [place] [address] Dr. Gurmeet Ivan XR CHEST 2 Von 05-28-2022 XR CHEST 2 V EXAM: Chest x-ray HISTORY: . SHORTNESS OF BREATH . COMPARISON: 04/29/2016 TECHNIQUE: Frontal and lateral chest. FINDINGS: Heart and vascularity are unremarkable. There is slight prominence of the bronchovascular markings. Lungs are free of focal infiltrates. Hernandez rods overlie the thoracic and lumbar spine. There is a slight scoliotic deformity of the thoracolumbar spine with convexity to the right. Impression: Slight prominence of the bronchovascular markings. Findings could represent bronchitis. No consolidation is noted. Clinical correlation is suggested. Electronically authenticated by: SHAKIR MARTINEZ Date: 2022-05-28 10:53 Normal [facility] Vital Signs Date Time Vital Sign Value Performing Clinician Facility 05-31-2023 07:07-0500 Body height 154.9 cm Ree Bolaños DONOR SERVICES TEAM LEADER-CLIENT RESOLUTION SPECIALIST Work Phone: [facility] 05-31-2023 07:07-0500 Body temperature 97.39 [degF] Ree Bolaños DONOR SERVICES TEAM LEADER-CLIENT RESOLUTION SPECIALIST Work Phone: [facility] 05-31-2023 07:07-0500 Diastolic blood pressure 68 mm[Hg] Ree De Leonillo DONOR SERVICES TEAM LEADER-CLIENT RESOLUTION SPECIALIST Work Phone: [facility] 05-31-2023 07:07-0500 Heart rate 76 /min Ree De Leonillo DONOR SERVICES TEAM LEADER-CLIENT RESOLUTION SPECIALIST Work Phone: [facility] 05-31-2023 07:07-0500 SaO2% (BldA) [Mass fraction] 97 % Ree Bolaños APRN-CLIENT RESOLUTION SPECIALIST [email or web address] 05-31-2023 07:07-0500 Systolic blood pressure 100 mm[Hg] Ree Bolaños DONOR SERVICES TEAM LEADER-CLIENT RESOLUTION SPECIALIST [email or web address] 04-14-2023 14:04-0500 Body height 154.9 cm [facility] PA [facility] 04-14-2023 14:04-0500 Body mass index (BMI) [Ratio] 12.83 kg/m2 [facility] PA [facility] 04-14-2023 14:04-0500 Body weight 30.8 kg [facility] PA [facility] Encounter Date Encounter Type Care Provider Facility Start: 08-16-2023 End: 08-16-2023 ambulatory BRYAN EUGENE Not Available Start: 05-31-2023 End: 06-01-2023 ambulatory [facility] Start: 05-31-2023 End: 05-31-[address] [facility] Start: 05-31-2023 End: 05-31-2023 Office outpatient visit 25 minutes Ree Bolaños DONOR SERVICES TEAM LEADER-CLIENT RESOLUTION SPECIALIST [facility] Comment on above: Benign essential HTN (Primary Dx); Other iron deficiency anemia; Elevated liver enzymes; Salivation excessive; Seizure disorder ([facility]) Start: 05-21-2023 Refill Ree [facility] DONOR SERVICES TEAM LEADER-CLIENT RESOLUTION SPECIALIST Work Phone: [facility] Comment on above: Benign essential HTN Start: 05-15-2023 End: 05-16-2023 Emergency department patient visit [facility] Start: 04-14-2023 End: 04-14-2023 ambulatory [facility] Start: 04-14-2023 End: 04-14-2023 Office outpatient visit 15 minutes [facility] Work Phone: [facility] Comment on above: Calculus of gallblad birgit without cholecystitis without obstruction (Primary Dx) Start: 03-31-2023 End: 03-31-2023 [facility] Start: 03-31-2023 End: 03-31-2023 Evaluation and management of inpatient CARL Thompson [facility] Start: 07-08-2022 End: 07-09-[address] BRYAN EUGENE Facility:[facility] Start: 05-28-2022 End: 05-28-[address] KARRI NUNN . Facility:[facility] Procedures Date Procedure Procedure Detail Performing Clinician Start: 05-31-2023 Adult depression screening assessment Ree De Leonillo DONOR SERVICES TEAM LEADER-CLIENT RESOLUTION SPECIALIST Work Phone: Start: 02-08-2023 Adult depression screening assessment [facility] Work Phone: Plan of Treatment Date Care Activity Detail Author Start: 05-31-2024 Depression Screening Depression Scre [facility] Start: 05-31-2024 Tobacco Screening Tobacco Screening [facility] Start: 05-15-2024 Adult BMI Screening Adult BMI Screen ing [facility] Start: 05-15-2024 Tobacco Screening Tobacco Screening [facility] Start: 03-31-2024 Adult BMI Screening Adult BMI Screen ing [facility] Start: 03-31-2024 Tobacco Screening Tobacco Screening [facility] Start: 02-09-2024 Depression Screening Depression Scre ening [facility] Start: 11-23-2023 Adult BMI Follow Up Plan Adult BMI Follow Up Plan [facility] Start: 11-01-2023 End: 11-01-2023 Patient encounter procedure 11/01/2023 7:00 AM EDT Office Visit [facility] [address] [place] [address] Ree Bolaños, DONOR SERVICES TEAM LEADER-CLIENT RESOLUTION SPECIALIST [address] [place] [address] [facility] Start: 05-31-2023 End: 05-31-2023 Patient encounter procedure 05/31/2023 7:00 AM EST Office Visit [facility] [address] [place] [address] Ree Bolaños, DONOR SERVICES TEAM LEADER-CLIENT RESOLUTION SPECIALIST [address] [place] [address] [facility] Start: 12-10-2022 Influenza vaccination Influenza Vacc ine [facility] Start: 2012 Screening for malign ant neoplasm of cervix Pap Smear [facility] Start: 2010 DTaP,Tdap and Td Vaccines (1 - Tdap) DTaP,Tdap and Td Vaccines (1 - Tdap) [facility] End: 05-31-2024 Hepatic function 2000 panel - Serum or Plasma Hepatic function panel Lab Routine Elevated liver enzymes 1 Occurrences starting 05/31/2023 until 05/31/2024 [facility] Comment on above: 1 Occurrences starti ng 05/31/2023 until 05/31/2024 End: 05-31-2024 Iron and TIBC Iron and TIBC Lab Routine Other iron deficiency anemia 1 Occurrences starting 05/31/2023 until 05/31/2024 [facility] Work Phone: Comment on above: 1 Occurrences starti ng 05/31/2023 until 05/31/2024 Payers Date Payer Category Payer Medicaid [id number] 2022 Medicaid [employer] [facility] [id number] 2022-Present [address] [place] [address] [id number] 1990 Unknown [id number] 1990 Unknown [id number] 1990 Unknown [id number] 1991 Unknown [id number] 1991 Unknown [id number] 1991 Unknown [id number] 1991 Unknown [id number] 1991 Unknown [id number] 1991 Unknown [id number] 1991 Unknown [id number] 1991 Unknown [id number] Social History Date Type Detail Facility Start: 11-22-2022 [facility] Start: 11-22-2022 Tobacco use and exposure Smokeless tobacco non-user [facility] Start: 04-14-2023 End: 05-31-2023 Alcohol intake Current non-drinker of alcohol (finding) [facility] Start: 05-22-2020 End: 04-14-2023 History of Social function [facility] Start: 05-22-2020 End: 04-14-2023 Tobacco use panel [facility] How hard is it for y ou to pay for the very basics like food, housing, medical care, and heating Not hard at all [facility] Start: 1990 Sex Assigned At Female P [facility] Start: 10-29-2022 Gender identity Identifies as female gender (finding) [facility] Start: 10-29-2022 Sexual orientation Heterosexual (fin ding) [facility] Goals Date Patient Goal Desired Activity /State Personal health goal Comment on above: Formatting of this n ote might be different from the original. Evaluation of progress towards goal: Current discharge plan is home with 24 hour caregiver support from parents. - Cydney Jacobsen RN 10/28/22 2:45 PM History of Present illness Narrative 05-31-2023 Ree Bolaños APRN-CLIENT RESOLUTION SPECIALIST - 05/31/2023 7:00 AM EST Note Date & Type Note Facility 05-31-2023 History of Present illness Narrative Images from the original note were not included. [address] [facility] [id number] SUBJECTIVE: Patient ID: Jt Wilson is a 33 y.o. female. Chief Complaint Patient presents with Hypertension Patient is accompanied by father today. Severe intellectual and development disability. Father and mother complete all ADLS. Attends day program. On 03/31/23, Rosy had lap. Cholecystectomy per Dr. Rogers. She has recovered very well. Father reports she has sparkle in her eyes again Has been monitoring blood pressures at home. Overall average is low 100's, diastolic in 70's The following portions of the patient's history were reviewed and updated as appropriate: allergies, current medications, past family history, past medical history, past social history, past surgical history and problem list. Past Surgical History: Procedure Laterality Date ABDOMINAL SURGERY BACK SURGERY BRONCHOSCOPY W/ WASHOUT N/A 10/28/2022 Performed by Jordin Zavala MD at [facility] LAPAROSCOPIC CHOLECYSTECTOMY N/A 03/31/2023 Performed by Carl Rogers MD at [facility] MYRINGOTOMY W/ TUBES PLACEMENT PEG TUBE REPLACEMENT; 20-22FR N/A 04/12/2016 Performed by Jd Small DO at [facility] THORACENTESIS 10/29/2022 Past Medical History: Diagnosis Date ABBE (acute kidney injury) ([facility]) 10/29/2022 Cerebral palsy ([facility]) Difficult intravenous access HL (hearing loss) moderate loss Pneumonia 10/28/2022 Salivation excessive 12/01/2016 Seizures ([facility]) Sinusitis, chronic Upper respiratory infection There is no immunization history on file for this patient. REVIEW OF SYSTEMS: Review of Systems Reason unable to perform ROS: ros completed per father due to severe cognative and intellectual delay. Constitutional: Negative for chills and fever. HENT: Negative. Eyes: Negative for visual disturbance. Respiratory: Negative for chest tightness. Gastrointestinal: Negative. Endocrine: Negative. Genitourinary: Negative for menstrual problem and pelvic pain. Musculoskeletal: Negative. Skin: Negative. Allergic/Immunologic: Negative. Neurological: Negative for syncope and facial asymmetry. Hematological: Does not bruise/bleed easily. Psychiatric/Behavioral: Negative. PHYSICAL EXAMINATION: Vitals: 05/31/23 0707 BP: 100/68 BP Site: Left Arm BP Postition: Sitting Pulse: 76 Temp: 36.3 C (97.4 F) TempSrc: Tympanic SpO2: 97% Height: 154.9 cm (5' 1 ) Physical Exam Vitals and nursing note reviewed. Constitutional: General: She is not in acute distress. Appearance: She is well-developed. She is not diaphoretic. HENT: Head: Normocephalic and atraumatic. Right Ear: Tympanic membrane and external ear normal. Left Ear: Tympanic membrane and external ear normal. Nose: Nose normal. Mouth/Throat: Mouth: Mucous membranes are moist. Pharynx: No oropharyngeal exudate. Eyes: General: Right eye: No discharge. Left eye: No discharge. Conjunctiva/sclera: Conjunctivae normal. Pupils: Pupils are equal, round, and reactive to light. Neck: Thyroid: No thyromegaly. Vascular: No JVD. Cardiovascular: Rate and Rhythm: Normal rate and regular rhythm. Heart sounds: Normal heart sounds. No murmur heard. No friction rub. No gallop. Pulmonary: Effort: Pulmonary effort is normal. Breath sounds: Normal breath sounds. Abdominal: General: Bowel sounds are normal. There is no distension. Palpations: Abdomen is soft. There is no mass. Tenderness: There is no abdominal tenderness. Comments: Peg tube Musculoskeletal: General: Normal range of motion. Cervical back: Normal range of motion and neck supple. Lymphadenopathy: Cervical: No cervical adenopathy. Skin: General: Skin is warm and dry. Capillary Refill: Capillary refill takes less than 2 seconds. Neurological: Mental Status: She is alert. Mental status is at baseline. Deep Tendon Reflexes: Reflexes are normal and symmetric. Psychiatric: Mood and Affect: Mood normal. Behavior: Behavior normal. ASSESSMENT/PLAN: Jt was seen today for hypertension. Diagnoses and all orders for this visit: Other iron deficiency anemia - Iron and TIBC; Future Elevated liver enzymes - Hepatic function panel; Future Benign essential HTN Salivation excessive - glycopyrrolate (ROBINUL) 2 MG tablet; give 1 tablet PER TUBE every morning and BEFORE BEDTIME Seizure disorder ([facility]) - levETIRAcetam (KEPPRA) 100 mg/mL solution; Administer 5 mL (500 mg total) per tube in the morning and 5 mL (500 mg total) before bedtime. 100MG/ML 5 ml q12. - valproic acid, as sodium salt, (DEPAKENE) 250 mg/5 mL (5 mL) solution; Administer 5 mL (250 mg total) per tube in the morning and 5 mL (250 mg total) before bedtime. Iron deficiency Iron supplement was discontinued at last visit due to normal trending labs Recheck iron panel 2. HTN. Metoprolol was added to her treatment plan while hospitalized for respiratory failure in October 2022. She has since recovered. Home and workshop BP's have been around 100 systolic, 70's diastolic. Discontinue metoprolol tartrate. Continue to monitor home BP's. Call office if systolic over 140, diastolic greater than 90 3. History of epilepsy No recent witnessed seizures Continue levetiracetam and valproic acid. 4. Elevated liver enzymes Lap cholecystectomy 04/02 Recheck liver panel 5. Excessive salivation Has resolved with robinul Will continue 2 mg twice daily ALL QUESTIONS ANSWERED Total time spent was 30 minutes: Preparing to see the patient (e.g., review of tests) Obtaining and/or reviewing separately obtained history Performing a medically appropriate examination and/or evaluation Counseling and educating the patient/family/caregiver Ordering medications, tests, or procedures Follow-up: 5 months JUANITA Zapien 05/31/23 0810 documented in this encounter [facility] History of Present illness Narrative 04-14-2023 [facility] B[facility]amante 04/14/2023 2:15 PM EST Note Date & Type Note Facility 04-14-2023 History of Present illness Narrative Subjective: Jt Wilson is a 33 y.o. female presented to the office for follow-up. Patient status post laparoscopic cholecystectomy done for symptomatic cholelithiasis on 04/30/2022 by . Caregiver stated that patient is doing fairly well. No complication reported. Objective: Final Pathologic Diagnosis Gallbladder, cholecystectomy: Active chronic cholecystitis and cholelithiasis with focal mucosal erosion. Two benign periductal lymph nodes present. Physical Exam Patient sitting on his chair. no acute distress Abdomen soft without distention. No tenderness noted with palpation. Port sites healed well. No sign of infection. No erythema no discharge no bleeding. Assessment: Jt Wilson is a 33 y.o.female status post laparoscopic cholecystectomy. No complication. Plan: 1) pathology report reviewed with the caregiver 2) all questions and concerns were addressed 3) follow-up p.r.n. Kimberly Jensen PA-C [facility] General Surgery [address] [place] [address] [facility] Bustamante 04/14/23 1415 documented in this encounter [facility] Evaluation note Note Date & Type Note Facility Evaluation note Diagnosis Calculus of gallbladder without cholecystitis without obstruction- Primary documented in this encounter [facility] Evaluation note Note Date & Type Note Facility Evaluation note Diagnosis Benign essential HTN documented in this encounter [facility] Evaluation note Note Date & Type Note Facility Evaluation note Diagnosis Benign essential HTN- Primary Other iron deficiency anemia Elevated liver enzymes Other nonspecific abnormal serum enzyme levels Salivation excessive Disturbance of salivary secretion Seizure disorder ([facility]-HCC) Unspecified epilepsy without mention of intractable epilepsy documented in this encounter [facility] Instructions Note Date & Type Note Facility Instructions Not on filedocumented in this en counter [facility] Instructions Note Date & Type Note Facility Instructions Not on filedocumented in this en counter [facility] Instructions Attachments Note Date & Type Note Facility Instructions The following attachments cannot be sent through Care Everywhere.Cerebral palsy (Slovenian)Enteral Feeding (Slovenian)documented in this encounter [facility] Summary Purpose Family History No Family History Records FoundNo Family History Records FoundNo Family History Records FoundNo Family History Records FoundNo Family History Records Found Advance Directives No Advanced Directives Records FoundLatest Code Status on File Code Status Date Activated Date Inactivated Comments Full Code 10/28/2022 4:16 AM 11/11/2022 6:46 PM Additional Source Comments INFORMATION SOURCE (unrecogn ized section and content) DATE CREATED AUTHOR 07/17/2022 [facility] DATE CREATED AUTHOR AUTHOR'S ORGANIZ ATION 05/15/2023 [facility] DATE CREATED AUTHOR AUTHOR'S ORGANIZ ATION 06/01/2023 [facility] DATE CREATED AUTHOR AUTHOR'S ORGANIZ ATION 06/08/2023 [facility] DATE CREATED AUTHOR AUTHOR'S ORGANIZ ATION 08/18/2023 [facility] Special[facility] EPIC Reason for Visit (unrecogniz ed section and content) Reason Comments Post-op 1ST PO GB JOSE 03/12 1 Reason Comments Med Refill Reason Comments Hypertension Care Teams (unrecognized sec tion and content) Assembler Dc Field Ring Relationship Specialty Start Date End Date Ree Bolaños, DONOR SERVICES TEAM LEADER-CLIENT RESOLUTION SPECIALIST [address] [address] PCP - General Family Medicine 08/17/22 Assembler Dc Field Ring Relationship Specialty Start Date End Date Ree Bolaños APRN-[facility] [address] [place] [address] PCP - [facility] 05/15/23 Assembler Dc Field Ring Relationship Specialty Start Date End Date Ree Bolaños APRN-[facility] [address] [place] [address] PCP - [facility] 05/15/23 FOR RECORDS PERTAINING TO PATIENTS WHO ARE OR HAVE BEEN ENROLLED IN A CHEMICAL DEPENDENCY/SUBSTANCEABUSE PROGRAM, SOME INFORMATION MAY BE OMITTED. This clinical summary was aggregated from multiple sources. Caution should be exercised in using it in the provision of clinical care. This summary normalizes information from multiple sources, and as a consequence, information in this document may materially change the coding, format and clinical context of patient data. In addition, data may be omitted in some cases. CLINICAL DECISIONS SHOULD BE BASED ON THE PRIMARY CLINICAL RECORDS. [facility] provides no warranty or guarantee of the accuracy or completeness of information in this document.
--- NOTE | 2023-09-11 11:38 | ECG_ITS ---
[facility] Test Date: 2023-09-11 Pat Name: JT BECERRIL Department: Room: - Gender: Female Payroll Assistant: : 1990 Requested By: Misa Bolaños Order Number: [id number] Reading MD: TOAN ESPINOZA Measurements Intervals [place] Rate: 106 P: 67 IA: 156 QRS: 76 QRSD: 64 T: 68 QT: 322 QTc: 384 Interpretive Statements 1120 Sinus tachycardia 9140 abnormal rhythm ECG Compared to ECG 10/25/2022 12:34:53 No significant changes Electronically Signed On 09-12-2023 6:49:14 EDT by TOAN ESPINOZA
--- NOTE | 2023-09-11 11:39 | XR_ITS ---
The [address] [address] Patient Name: JT BECERRIL MRN: [id number] date: 1990 Sex: F Assigned Patient Location: ER Current Patient Location: ER Accession/Order Number: [id number] Exam Date: 09/11/2023 12:05 Report Date: 09/11/2023 12:18 At the request of: JUANIS ALCOCER Procedure: XR chest 1V EXAM: XR chest 1V HISTORY: . fever . COMPARISON: 10/27/2022 TECHNIQUE: Single view of the chest FINDINGS: Heart and vascularity are unremarkable. Lungs are free of focal infiltrates. Hernandez rods overlie the thoracic spine. XR/XR chest 1V IMPRESSION: No acute heart or lung disease identified. Electronically authenticated by: SHAKIR MARTINEZ Date: 09/11/2023 12:18
--- NOTE | 2023-09-11 11:47 | CT_ITS ---
[address] [address] Patient Name: JT BECERRIL MRN: [id number] date: 1990 Sex: F Assigned Patient Location: ER Current Patient Location: ER Accession/Order Number: [id number] Exam Date: 09/11/2023 12:15 Report Date: 09/11/2023 13:35 At the request of: JUANIS ALCOCER Procedure: CT abdomen pelvis wo con EXAM: CT abdomen pelvis wo con HISTORY: abd distension COMPARISON: None. TECHNIQUE: Dose reduction techniques were achieved by using automated exposure control and/or adjustment of mA and/or kV according to patient size and/or use of iterative reconstruction technique. Noncontrast CT of the abdomen/pelvis. FINDINGS: Mild patchy atelectasis at the left lung base. Right lung base is clear. Posterior spinal fusion hardware of the thoracic and lumbar spine. There are posterior pedicle screws extending from T11 through L4. There are rods extending superiorly to the thoracic spine. There is significant streak artifact extending from the hardware throughout the abdomen, limiting the sensitivity of this examination. No definitive focal liver abnormality. Cholecystectomy. No definitive splenic lesion. Nonobstructive right kidney stones. No left kidney stones. No hydronephrosis. Large stool burden of the rectum. Above-average stool burden of the sigmoid colon and left colon. There is gaseous distention of the transverse colon. No small bowel dilation. No focal bladder wall thickening. Uterus is unremarkable by this technique. No inguinal, pelvic or retroperitoneal adenopathy. Mild degeneration of the sacroiliac joints. Bilateral L5 pars defects. CT/CT abdomen pelvis wo con IMPRESSION: 1. Posterior spinal fusion hardware causing streak artifact and limiting the sensitivity of this examination. 2. Large stool burden of the rectum. Above-average stool burden of the sigmoid colon and left colon. There is gaseous distention of the transverse colon. 3. No small bowel dilation. 4. Nonobstructive stones of the right kidney. 5. Other discernible findings as described. Electronically authenticated by: SOCRATES BENITEZ Date: 09/11/2023 13:35
[2023-09-11 12:10] LABS: Hematocrit 33.8 % (36.0-48.0); Hemoglobin 10.8 g/dL (12.0-16.0); Mean Corpuscular Hemoglobin 29.9 pg (26.7-34.0); Mean Corpuscular Volume 93.6 fL (81.0-99.0); Mean Platelet Volume 11.2 fL (9.5-13.5); Platelet Count 176 10^3/uL (150-450); Red Blood Count 3.61 10^6/uL (4.20-5.40); White Blood Count 5.3 10^3/uL (4.0-11.0)
--- NOTE | 2023-09-11 12:18 | ED_ITS ---
HPI - Fever General Chief Complaint: Fever Stated Complaint: FEVER/GENERAL WEAKNESS Time Seen by Provider: 09/11/23 11:34 Source: family Mode of arrival: Wheelchair History of Present Illness HPI Narrative: Patient is coming to the ER accompanied by her father, she have a history of cerebral palsy as well as seizure disorder and she is minimally verbal, the patient is wheelchair-bound as well and her father brought her after she recentl y 3 days ago had some episode of vomiting, at that time the patient apparently the plan was in case of fever she will be brought back to the ER, Tuesday evening the patient had a seizure and yesterday she was not acting herself, her father gave her Tylenol yesterday at 7 PM last. And he also mentioned that there is exposure at her daycare to strep. She had 3 bowel movement over the last 2 days after the father gave her some MiraLAX, no nausea or vomiting since Tuesday But the fever with a concern for the father Related Data Home Medications ?Medication ?Instructions ?Recorded ?Confirmed levetiracetam 100 mg/mL oral 250 mg feeding tube Q12H 10/25/22 09/11/23 solution (Keppra) valproic acid (as sodium salt) 250 250 mg feeding tube BID 10/26/22 09/11/23 mg/5 mL (5 mL) oral solution glycopyrrolate 2 mg tablet 2 mg PO BID 09/11/23 09/11/23 (Jostininliliane Fortearnestine) Allergies Allergy/AdvReac Type Severity Reaction Status Date / Time Sulfa (Sulfonamide Allergy Intermediate Verified 10/25/22 12:31 Antibiotics) Review of Systems ROS Narrative The review of system obtained from the father Status of ROS 10 or more systems reviewed and unremark able except as noted in history and below [facility] Medical History (Updated 09/11/23 @ 14:29 by Yulia Olsen MD) Visual impairment ?H54.7 - Unspecified visual loss (ICD-10) Hearing impairment ?H91.90 - Unspecified hearing loss, unspecified ear (ICD-10) History of gastrostomy tube placement Scoliosis ?M41.9 - Scoliosis, unspecified (ICD-10) Hx of seizure disorder ?Z86.69 - Personal history of other diseases of the nervous system and sense organs (ICD-10) Severe intellectual disability ?F72 - Severe intellectual disabilities (ICD-10) Surgical History Exam Narrative Exam Narrative: Nurses notes and vital signs reviewed and patient is not hypoxic. General: Well-appearing and in no apparent distress. Skin: Warm, dry, no pallor noted. No rash. Head: Normocephalic, atraumatic. Neck: Supple, non-tender. Eye: Pupils are equal, round and EOMI. No scleral icterus. Ears, Nose, Mouth, and Throat: TM are clear, no nasal mucosal hypertrophy. Oral mucosa is moist, no posterior oropharynx erythema, uvula is mid-line Cardiovascular: Regular Rate and Rhythm without murmur, gallop or rub. Respiratory: No accessory muscle use or respiratory distress. Lungs decreased air entry in the bases Chest Wall: no tenderness Back: No midline thoracic or lumbar vertebral tenderness. No CVA tenderness Musculoskeletal: Bilateral lower extremity and upper extremity atrophy and weakness GI: Abdomen distended and the patient shows some distress when palpating the abdomen. PEG tube is in the epigastric area no signs of infection or inflammation surrounding the entrance Constitutional Vital Signs, click to edit/add: Last Vital Signs Temp 100 F 09/11/23 14:05 Pulse 106 H 09/11/23 14:05 Resp 32 H 09/11/23 14:05 BP 104/81 09/11/23 14:05 Pulse Ox 95 09/11/23 14:05 O2 Del Method Room Air 09/11/23 11:31 Course Vital Signs Vital signs: Vital Signs Temperature 100.5 F H 09/11/23 11:31 Pulse Rate 125 H 09/11/23 11:31 Respiratory Rate 18 09/11/23 11:31 Blood Pressure 132/93 H 09/11/23 11:31 Pulse Oximetry 99 09/11/23 11:31 Oxygen Delivery Method Room Air 09/11/23 11:31 Temperature 100 F 09/11/23 14:05 Pulse Rate 106 H 09/11/23 14:05 Respiratory Rate 32 H 09/11/23 14:05 Blood Pressure 104/81 09/11/23 14:05 Pulse Oximetry 95 09/11/23 14:05 Oxygen Delivery Method Room Air 09/11/23 11:31 MDM - Fever MDM Narrative Medical decision making narrative: The patient EKG in the ER showing sinus rhythm with a heart rate of [address] elevation depression It was noted upon presentation that the patient is tachycardic in the 120 and she is febrile COVID flu and strep are negative The patient chest x-ray showed no acute pathology CAT scan shows a severe constipation with no obstruction And the patient also was noted to have a urine infection Urine culture was obtained and the patient was started on ceftriaxone and levofloxacin especially with the patient history of being wheelchair-bound she mostly have multiple urine infection before and she could be having a resistant UTI CBC shows bandemia ,chemistry showed did not show any elevated creatinine and no elevated lactic acid The patient will be admitted for further evaluation of UTI it was noted that the patient does not have a Muse catheter and she have a depends and that usually could be the reason for the patient retaining urine and causing further infection The patient case discussed with and he agreed with above-mentioned plan Lab Data Labs: Lab Results 09/11/23 09/11/23 09/11/23 Range/Units 12:03 12:35 13:10 WBC 5.3 (4.0-11.0) 10^3/uL RBC 3.61 L (4.20-5.40) 10^6/uL Hgb 10.8 L (12.0-16.0) g/dL Hct 33.8 L (36.0-48.0) % MCV 93.6 (81.0-99.0) fL MCH 29.9 (26.7-34.0) pg MCHC 32.0 (29.9-35.2) g/dL RDW 13.0 (11.0-15.0) % Plt Count 176 (150-450) 10^3/uL MPV 11.2 (9.5-13.5) fL Seg Neuts % (Manual) 52.0 Band Neutrophils % 10.0 H (0-5) % Lymphocytes % (Manual) 31.0 (20.5-60.0) % Monocytes % (Manual) 6.0 (1.7-12.0) % Eosinophils % (Manual) 0.0 L (0.9-7.0) % Basophils % (Manual) 0.0 L (0.2-2.0) % Metamyelocytes % 1.0 Neutrophils # (Manual) 2.75 (1.4-6.5) 10^3/uL Band Neutrophils # 0.5 H (0.0-0.3) 10^3/uL Lymphocytes # (Manual) 1.64 (1.20-3.80) 10^3/uL Monocytes # (Manual) 0.31 (0.30-0.80) 10^3/uL Eosinophils # (Manual) 0.00 (0.00-0.70) 10^3/uL Basophils # (Manual) 0.00 (0.00-0.10) 10^3/uL Metamyelocytes # 0.05 Sodium 134 L (136-145) mmol/L Potassium 4.5 (3.5-5.1) mmol/L Chloride 97 L (98-107) mmol/L Carbon Dioxide 31.2 (21.0-32.0) mmol/L Anion Gap 10.3 BUN 16.0 (7.0-18.0) mg/dL Creatinine 0.41 L (0.55-1.02) mg/dL Est GFR ( Amer) >60 (>=60) Est GFR (Non-Af Amer) >60 (>=60) BUN/Creatinine Ratio 39.0 Glucose 100 (74-106) mg/dL Lactate 1.8 (0.4-2.0) mmol/L Calcium 9.0 (8.5-10.1) mg/dL Total Bilirubin 0.4 (0.2-1.0) mg/dL AST 77 H (15-37) U/L ALT 109 H (14-59) U/L Alkaline Phosphatase 156 H (46-116) U/L Troponin I High Sens <4.0 L (4.0-51.3) pg/mL Total Protein 8.0 (6.4-8.2) g/dL Albumin 3.0 L (3.4-5.0) g/dL Globulin 5.0 g/dL Albumin/Globulin Ratio 0.6 Urine Color Lt. yellow (YELLOW) Urine Clarity Clear (CLEAR) Urine pH 8.0 (5.0-9.0) Ur Specific [place] 1.015 (1.005-1.025) Urine Protein 30 A (NEG/TRACE) mg/dL Urine Glucose (UA) Negative (NEGATIVE) mg/dL Urine Ketones Negative (NEGATIVE) mg/dL Urine Occult Blood Trace-i (NEGATIVE) Urine Nitrite Positive A (NEGATIVE) Urine Bilirubin Negative (NEGATIVE) Urine Urobilinogen 1.0 (0.2-1.0) EU/dL Ur Leukocyte Esterase Moderate A (NEGATIVE) Urine RBC 2-5 A (0-2) #/HPF Urine WBC 10-20 A (NONE SEEN) #/HPF Ur Squamous Epith Cells Rare (NONE/RARE) #/LPF Urine Crystals None seen (None Seen) #/HPF Urine Bacteria Large A (NONE SEEN) #/HPF Urine Casts None seen (NONE SEEN) #/LPF Urine Mucus None seen (NONE SEEN) Ur Culture Indicated? Yes Streptococcus Screen Negative Discharge Plan Discharge Chief Complaint: Fever Clinical Impression: UTI (urinary tract infection) Qualifiers: Urinary tract infection type: site unspecified Hematuria presence: without hematuria Qualified Code(s): N39.0 - Urinary tract infection, site not specified Sepsis Qualifiers: Sepsis type: sepsis due to unspecified organism Sepsis acute organ dysfunction status: without acute organ dysfunction Qualified Code(s): A41.9 - Sepsis, unspecified organism Patient Disposition: Admitted As Inpatient Time of Disposition Decision: 14:29
[2023-09-11 12:26] LABS: Alanine Aminotransferase 109 U/L (14-59); Albumin Globulin Ratio 0.6; Alkaline Phosphatase 156 U/L (46-116); Anion Gap 10.3; Aspartate Amino Transferase 77 U/L (15-37); Bilirubin Total 0.4 mg/dL (0.2-1.0); Carbon Dioxide 31.2 mmol/L (21.0-32.0); Chloride 97 mmol/L (98-107); Estimated GFR (African America >60 (>=60); Estimated GFR (Non-African Ame >60 (>=60); Glucose 100 mg/dL (74-106); Potassium 4.5 mmol/L (3.5-5.1); Sodium 134 mmol/L (136-145)
[2023-09-11 12:28] LABS: Lactate/Lactic Acid 1.8 mmol/L (0.4-2.0); Troponin I High Sensitivity <4.0 pg/mL (4.0-51.3)
[2023-09-11 12:58] LABS: Band Neutrophils Absolute 0.5 10^3/uL (0.0-0.3); Lymphocytes Absolute Manual 1.64 10^3/uL (1.20-3.80); Monocytes Absolute Manual 0.31 10^3/uL (0.30-0.80); Segmented Neut Absolute Manual 2.75 10^3/uL (1.4-6.5)
[2023-09-11 12:59] LABS: Metamyelocytes Absolute Manual 0.05
[2023-09-11] MEDS: ACETAMINOPHEN 650 MG RECTAL SUPPOSITORY PR (12:59)
[2023-09-11 13:02] LABS: Bilirubin Urine NEGATIVE (NEGATIVE); Blood Urine TRACE-I (NEGATIVE); Clarity Urine CLEAR (CLEAR); Color Urine LT. YELLOW (YELLOW); Glucose Urine UA NEGATIVE (NEGATIVE); Ketones Urine NEGATIVE (NEGATIVE); Leukocyte Esterase Urine MODERATE (NEGATIVE); Nitrite Urine POSITIVE (NEGATIVE); Protein Urine 30 mg/dL (NEG/TRACE); Specific Gravity Urine 1.015 (1.005-1.025)
[2023-09-11 13:06] LABS: Urine Microscopic Indicated YES
[2023-09-11 13:14] LABS: Bacteria Urine LARGE #/HPF (NONE SEEN); Cast Seen? NONE SEEN #/LPF (NONE SEEN); Crystals Seen? None Seen #/HPF (None Seen); Mucus Urine NONE SEEN (NONE SEEN); Squamous Epithelial Cell Urine RARE #/LPF (NONE/RARE); Urine Culture Indicated YES
[2023-09-11 13:26] LABS: Internal Control Within Normal Limits; Strep A Antigen Screen Negative
[2023-09-11] MEDS: 0.9 % SODIUM CHLORIDE 1,000 ML 1000 ML IV ×2 (13:27→16:57)
[2023-09-11] MEDS: CEFTRIAXONE 1,000 MG in 0.9 % SODIUM CHLORIDE 50 ML 100 MG IV (14:27)
--- OUTSIDE RECORDS SUMMARY | 2023-09-11 15:33 | XMS_ITS | CCD ---
Author Organization [facility] CliniSyct Care Team Providers Care Lactation Coordinator Name Role Phone PAY ., DR ZENG Attending Unavailable MCQUEEN ., DR ADAM Emerson Primary Care Unavailable PAY ., DR ZENG Admitting Unavailable PAY ., DR ZENG Consulting Unavailable SHAKIR MARTINEZ Consulting Unavailable VALORIE, DR ADAMS Attending Unavailable VALORIE, DR ADAMS Admitting Unavailable CHARISSE ., DR ADAM Emerson Primary Care Unavailable VALORIE, DR ADAMS Consulting Unavailable Bolaños FACULTY DEAN-YOUTH CARE PROFESSIONAL, Ree J Primary Care Provid er JAYA REE J Primary Care Unavailable CHELSI HOUSE Attending Unavailable CHELSI HOUSE Attending Unavailable CHELSI HOUSE Referring Unavailable BOLAÑOS, REE J Primary Care Unavailable Bolaños FACULTY DEAN-YOUTH CARE PROFESSIONAL, Ree J Primary Care Provid er REE [...] Sulfonamides (Antibiotic) Drug allergy (disorder) 7 [facility] Repository (6 sources) Sulfonamides (Antibiotic); Translations: [SULFA (SULFONAMIDE ANTIBIOTICS)] Propensity to adverse reactions to drug 6 [employer] Work Phone: Medications Current Medications Medication Drug [...] (KEPPRA) 100 mg/mL solution Indications: Seizure disorder ([facility]) Administer 5 mL (500 mg total) per [...] 3 Episodic Other aftercare (1 source) Other penitentiary (current) drug therapy; Translations: [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 ([id number]) [address] [place] [address] IRON BINDING 417 ug/dL Normal 250-425 [facility] Comment on above: Performed By: #### F EPR, LIVR #### [facility] ([id number]) [address], [address] [place] [address] IRON SATURATION 16 % SATURATION Normal 15-50 [facility] Comment on above: Performed By: #### F EPR, LIVR #### [facility] ([id number]) [address], [address] [place] [address] LIVER PANELon 05-31-2023 Albumin [Mass/Vol] 4.3 g/dL Normal 3.2-5.3 [facility] Comment on above: Performed By: #### F EPR, LIVR #### [facility] ([id number]) [address], [address] [place] [address] ALP [Catalytic activity/Vol] 104 U/L Normal 39-130 [facility] Comment on above: Performed By: #### F EPR, LIVR #### [facility] ([id number]) [address], [address] [place] [address] ALT [Catalytic activity/Vol] 79 U/L High 0-31 [facility] Comment on above: Performed By: #### F EPR, LIVR #### [facility] ([id number]) [address], [address] [place] [address] AST [Catalytic activity/Vol] 59 U/L High 0-41 [facility] Comment on above: Performed By: #### F EPR, LIVR #### [facility] ([id number]) [address], [address] [place] [address] Bilirubin [Mass/Vol] 0.3 mg/dL Normal 0.3-1.2 [facility] Comment on above: Performed By: #### F EPR, LIVR #### [facility] ([id number]) [address], [address] [place] [address] Bilirubin.direct [Mass/Vol] 0.1 mg/dL Normal 0.0-0.4 [facility] Comment on above: Performed By: #### F EPR, LIVR #### [facility] ([id number]) [address], [address] [place] [address] Protein [Mass/Vol] 8.0 g/dL Normal 6.0-8.0 [facility] Comment on above: Performed By: #### F EPR, LIVR #### [facility] ([id number]) [address], [address] [place] [address] XR ABDOMEN AP 1 VWon 024 XR [...] Ayala MD on 05/15/2023 5:02 PM Normal [facility] Surgical Pathologyon 023 Surgical Pathology Normal [facility] Comment on above: Result Comment: [facility] Laboratory Medicine [address] [place] [address] Surgical Pathology Consultation Patient Name:JT WILSON:1990 (Age: 33)Gender:FTaken:03/31/2023Reported:04/08/2023hysician(s):Carl Rogers M.D. ( )Copy To: Rec. #:[id number]: #[id number] Final Pathologic Diagnosis Gallbladder, cholecystectomy: Active chronic cholecystitis and cholelithiasis with focal mucosal erosion. Two benign periductal lymph nodes present. Report Electronically Signed Out ao/04/08/2023kathryn Casey MD Interpretation performed at [facility], [address] [place] [address], License number: [id number]. Clinical History Cholelithiasis. Gross Description Received in [...] gallbladder wall is 0.2-0.3 cm in thickness. Dba Manager cross-sections are submitted within cassette A. (2, ss, [id number]) DM. dm/03/31/2023SSI Specimen(s) Received Gallbladder Fee Codes(s): 1; 53874 LEVETIRACETAM, SERUM OR PLAS MAon 07-12-2022 Levetiracetam, S 28.2 ug/mL Normal 10.0-40.0 [facility] Comment on above: Performed By: #### K EPPRA #### [facility] [address] [place] [address] [address] [address] Gurmeet Ivan CBC AUTO DIFFon 07-08-2022 BASO # 0.0 103/ul Normal 0.0-0.[address] [facility] Comment on above: Performed By: #### C BC #### [facility] [address] [place] [address] Dr. Gurmeet Ivan Basophils/100 WBC (Bld) 0.4 % Normal 0.2-2.0 [facility] Comment on above: Performed By: #### C BC #### [facility] [address] [place] [address] Dr. Gurmeet Ivan EO # 0.1 103/ul Normal 0.0-0.7 [facility] Comment on above: Performed By: #### C BC #### [facility] [address] [place] [address] Dr. Gurmeet Ivan Eosinophils/100 WBC (Bld) 1.0 % Normal 0.9-7.0 [facility] Comment on above: Performed By: #### C BC #### [facility] [address] [place] [address] Dr. Gurmeet Ivan Erythrocyte distribution width (RBC) [Ratio] 13.6 % Normal 11.0-15.[address] [facility] Comment on above: Performed By: #### C BC #### [facility] [address] [place] [address] Dr. Gurmeet Ivan Hematocrit (Bld) [Volume fraction] 38.9 % Normal 36.0-48.[address] [facility] Comment on above: Performed By: #### C BC #### [facility] [address] [place] [address] Dr. Gurmeet Ivan Hemoglobin (Bld) [Mass/Vol] 13.0 g/dL Normal 12.0-16.0 [facility] Comment on above: Performed By: #### C BC #### [facility] [address] [place] [address] Dr. Gurmeet Ivan IG # 0.02 10e3/ul Normal 0.00-0.03 [facility] Comment on above: Performed By: #### C BC #### [facility] [address] [place] [address] Dr. Gurmeet Ivan IG % 0.3 % Normal 0.0-0.5 [facility] Comment on above: Performed By: #### C BC #### [facility] [address] [place] [address] Dr. Gurmeet Ivan LYMPH # 1.5 103/ul Normal 1.2-3.8 [facility] Comment on above: Performed By: #### C BC #### [facility] [address] [place] [address] Dr. Gurmeet Ivan Lymphocytes/100 WBC (Bld) 22.0 % Normal 20.5-60.[address] [facility] Comment on above: Performed By: #### C BC #### [facility] [address] [place] [address] Dr. Gurmeet Ivan MANUAL DIFF REQ NO Normal [facility] Comment on above: Performed By: #### C BC #### [facility] [address] [place] [address] Dr. Gurmeet Ivan MCH (RBC) [Entitic mass] 29.3 pg Normal 26.7-34.[address] [facility] Comment on above: Performed By: #### C BC #### [facility] [address] [place] [address] Dr. Gurmeet Ivan MCHC (RBC) [Mass/Vol] 33.4 g/dL Normal 29.9-35.2 [facility] Comment on above: Performed By: #### C BC #### [facility] [address] [place] [address] Dr. Gurmeet Ivan MCV (RBC) [Entitic vol] 87.8 fL Normal 81.0-99.0 [facility] Comment on above: Performed By: #### C BC #### [facility] [address] [place] [address] Dr. Gurmeet Ivan MONO # 0.5 103/ul Normal 0.3-0.8 [facility] Comment on above: Performed By: #### C BC #### [facility] [address] [place] [address] Dr. Gurmeet Ivan Monocytes/100 WBC (Bld) 6.6 % Normal 1.7-12.[address] [facility] Comment on above: Performed By: #### C BC #### [facility] [address] [place] [address] Dr. Gurmeet Ivan NEUT # 4.8 103/ul Normal 1.4-6.[address] [facility] Comment on above: Performed By: #### C BC #### [facility] [address] [place] [address] Dr. Gurmeet Ivan Neutrophils/100 WBC (Bld) 69.7 % Normal 43.0-75.[address] [facility] Comment on above: Performed By: #### C BC #### [facility] [address] [place] [address] Dr. Gurmeet Ivan Platelet mean volume (Bld) [Entitic vol] 11.5 fL Normal 9.5-13.[address] [facility] Comment on above: Performed By: #### C BC #### [facility] [address] [place] [address] Dr. Gurmeet Ivan PLT 229 103/ul Normal 150-[address] [facility] Comment on above: Performed By: #### C BC #### [facility] [address] [place] [address] Dr. Gurmeet Ivan RBC 4.43 106/ul Normal 4.20-5.[address] [facility] Comment on above: Performed By: #### C BC #### [facility] [address] [place] [address] Dr. Gurmeet Ivan WBC 6.9 103/ul Normal 4.0-11.[address] [facility] Comment on above: Performed By: #### C BC #### [facility] [address] [place] [address] Dr. Gurmeet Ivan DEPAKENE/ VALPROIC ACIDon DEPAKENE 59.7 ug/ml Normal 50.0-100.[address] [facility] Comment on above: Performed By: #### B MP, LIVER, VALP #### [facility] [address] [place] [address] Dr. Gurmeet Ivan LIVER PROFILEon 07-08-2022 Albumin [Mass/Vol] 3.7 g/dL Normal 3.4-5.0 [facility] Comment on above: Performed By: #### B MP, LIVER, VALP #### [facility] [address] [address] [address] Gurmeet Ivan Albumin/Globulin [Mass ratio] 0.8 {ratio} Normal [facility] Comment on above: Performed By: #### B MP, LIVER, VALP #### [facility] [address] [address] [address] Gurmeet Ivan ALP [Catalytic activity/Vol] 132 U/L Critically high 46-[address] [facility] Comment on above: Performed By: #### B MP, LIVER, VALP #### [facility] [address] [address] [address] Gurmeet Ivan ALT [Catalytic activity/Vol] 51 U/L Normal 14-[address] [facility] Comment on above: Performed By: #### B MP, LIVER, VALP #### [facility] [address] [place] [address] Dr. Gurmeet Ivan AST [Catalytic activity/Vol] 34 U/L Normal 15-[address] [facility] Comment on above: Performed By: #### B MP, LIVER, VALP #### [facility] [address] [place] [address] Dr. Gurmeet Ivan BILI, CONJUGATED 0.1 mg/dL Normal 0.0-0.2 [facility] Comment on above: Performed By: #### B MP, LIVER, VALP #### [facility] [address] [place] [address] Dr. Gurmeet Ivan Bilirubin [Mass/Vol] 0.2 mg/dL Normal 0.2-1.[address] [facility] Comment on above: Performed By: #### B MP, LIVER, VALP #### [facility] [address] [place] [address] Dr. Gurmeet Ivan Globulin (S) [Mass/Vol] 4.8 g/dL Normal [facility] Comment on above: Performed By: #### B MP, LIVER, VALP #### [facility] [address] [address] [address] Gurmeet Ivan Protein [Mass/Vol] 8.5 g/dL Critically high 6.4-8.2 [facility] Comment on above: Performed By: #### B MP, LIVER, VALP #### [facility] [address] [place] [address] Dr. Gurmeet Ivan PROF CHEM 8 (BAS METB)on Anion gap [Moles/Vol] 10.8 mmol/L Normal [facility] Comment on above: Performed By: #### B MP, LIVER, VALP #### [facility] [address] [place] [address] Dr. Gurmeet Ivan Calcium [Mass/Vol] 9.3 mg/dL Normal 8.5-10.1 [facility] Comment on above: Performed By: #### B MP, LIVER, VALP #### [facility] [address] [place] [address] Dr. Gurmeet Ivan Chloride [Moles/Vol] 101 mmol/L Normal 98-[address] [facility] Comment on above: Performed By: #### B MP, LIVER, VALP #### [facility] [address] [place] [address] Dr. Gurmeet Ivan CO2 [Moles/Vol] 30.6 mmol/L Normal 21.0-32.0 [facility] Comment on above: Performed By: #### B MP, LIVER, VALP #### [facility] [address] [place] [address] Dr. Gurmeet Ivan Creatinine [Mass/Vol] 0.37 mg/dL Critically low 0.55-1.[address] [facility] Comment on above: Performed By: #### B MP, LIVER, VALP #### [facility] [address] [place] [address] Dr. Gurmeet Ivan EGFR-AF YEMENI 247 mL/min/1.73m2 Normal >=60 [facility] Comment on above: Performed By: #### B MP, LIVER, VALP #### [facility] [address] [place] [address] Dr. Gurmeet Ivan EGFR-NON AF YEMENI 204 mL/min/1.73m2 Normal >=[address] [facility] Comment on above: Performed By: #### B MP, LIVER, VALP #### [facility] [address] [address] [address] Gurmeet Ivan Glucose [Mass/Vol] 88 mg/dL Normal 74-106 [facility] Comment on above: Performed By: #### B MP, LIVER, VALP #### [facility] [address] [place] [address] Dr. Gurmeet Ivan Potassium [Moles/Vol] 4.4 mmol/L Normal 3.5-5.1 [facility] Comment on above: Performed By: #### B MP, LIVER, VALP #### [facility] [address] [address] [address] Gurmeet Ivan Sodium [Moles/Vol] 138 mmol/L Normal 136-145 [facility] Comment on above: Performed By: #### B MP, LIVER, VALP #### [facility] [address] [place] [address] Dr. Gurmeet Ivan Urea nitrogen [Mass/Vol] 17.0 mg/dL Normal 7.0-18.0 [facility] Comment on above: Performed By: #### B MP, LIVER, VALP #### [facility] [address] [address] [address] Gurmeet Ivan Urea nitrogen/Creatinin e [Mass ratio] 45.9 mg/mg Normal [facility] Comment on above: Performed By: #### B MP, LIVER, VALP #### [facility] [address] [place] [address] Dr. Gurmeet Ivan Covid-19 PCR ([facility])on 05-12 SARS-CoV-2 (COVID-19) RNA AUREA+probe Ql (Unsp spec) Detected Abnormal NOT DETECTED [facility] Comment on above: Result Comment: This test is not yet approved or cleared by the [place] FDA. When there are no FDA-approved or cleared tests available, and other criteria are met, FDA can make tests available under an emergency access mechanism called an Emergency Use Authorization (EUA). The EUA for this test is supported by the Information Systems Consultant of Health and Human Service's declaration that [...] used). Performed By: #### C VDTB #### [facility] [address] [place] [address] Dr. Gurmeet Ivan INFLUENZA A AND B [facility] 05-28 [facility] SEE BELOW Normal [facility] Comment on above: Result Comment: Nega tive for Flu A protein angiten. Infection due to Flu A cannot be ruled out. Flu A angiten in the sample may be below the detection limit of the test. Performed By: #### I NFLUAB #### [facility] [address] [place] [address] Dr. Gurmeet Ivan [facility] SEE BELOW Normal [facility] Comment on above: Result Comment: Nega tive for Flu B protein antigen. Infection due to Flu B cannot be ruled out. Flu B antigen in the sample may be below the detection limit of the test. Performed By: #### I NFLUAB #### [facility] [address] [place] [address] Dr. Gurmeet Ivan INFLUENZA A AG Negative Normal NEGATIVE SEE COMMENT [facility] Comment on above: Performed By: #### I NFLUAB #### [facility] [address] [place] [address] Dr. Gurmeet Ivan INFLUENZA B AG Negative Normal NEGATIVE SEE COMMENT [facility] Comment on above: Performed By: #### I NFLUAB #### [facility] [address] [place] [address] Dr. Gurmeet Ivan XR CHEST 2 Von [...] by: SHAKIR MARTINEZ Date: 2022-05-28 10:[address] [facility] Vital Signs Date Time Vital Sign Value Performing Clinician Facility 05-31-2023 07:07-0500 Body height 154.9 cm Ree Bolaños FACULTY DEAN-YOUTH CARE PROFESSIONAL Work Phone: [facility] [employer] [facility] 05-31-2023 07:07-0500 Body temperature 97.39 [degF] Ree Bolaños FACULTY DEAN-YOUTH CARE PROFESSIONAL Work Phone: [facility] [employer] [facility] 05-31-2023 07:07-0500 Diastolic blood pressure 68 mm[Hg] Ree De Leonillo FACULTY DEAN-YOUTH CARE PROFESSIONAL Work Phone: [facility] [employer] [facility] 05-31-2023 07:07-0500 Heart rate 76 /min Ree De Leonillo FACULTY DEAN-YOUTH CARE PROFESSIONAL Work Phone: [facility] [employer] [facility] 05-31-2023 07:07-0500 SaO2% (BldA) [Mass fraction] 97 % Ree Bolaños APRN-YOUTH CARE PROFESSIONAL Work Phone[facility] 05-31-2023 07:07-0500 Systolic blood pressure 100 mm[Hg] Ree Bolaños FACULTY DEAN-YOUTH CARE PROFESSIONAL Work Phone: [facility] 04-14-2023 14:04-0500 Body height 154.9 cm [employer] [facility] Work Phone[facility] 04-14-2023 14:04-0500 Body mass index (BMI) [Ratio] 12.83 kg/m2 [employer] [facility] Work [facility] 04-14-2023 14:04-0500 Body weight 30.8 kg [employer] [facility] [facility] Encounters Encounter Date Encounter Type Care Provider Facility Start: 08-16-2023 End: 08-16-2023 ambulatory BRYAN EUGENE Not Available Start: 05-31-2023 End: 06-01-2023 ambulatory [facility] Start: 05-31-2023 End: 05-31-2023 ambulatory [facility] Start: 05-31-2023 End: 05-31-2023 Office outpatient visit 25 minutes Ree Bolaños FACULTY DEAN-YOUTH CARE PROFESSIONAL [facility] Comment on above: Benign essential HTN (Primary Dx); Other iron deficiency anemia; Elevated liver enzymes; Salivation excessive; Seizure disorder ([facility]) Start: 05-21-2023 Refill Ree J [facility] FACULTY DEAN-YOUTH CARE PROFESSIONAL Work Phone: [facility] Comment on above: Benign essential HTN Start: 05-15-2023 End: 05-16-2023 Emergency department patient visit [facility] Start: 04-14-2023 End: 04-14-2023 ambulatory [facility] Start: 04-14-2023 End: 04-14-2023 Office outpatient visit 15 minutes [facility] Work Phone: [facility] Comment on above: Calculus of gallblad birgit without cholecystitis without obstruction (Primary Dx) Start: 03-31-2023 End: 03-31-2023 [facility] Start: 03-31-2023 End: 03-31-2023 Evaluation and management of inpatient CARL Thompson [facility] Start: 07-08-2022 End: 07-09-[address] BRYAN EUGENE Facility:[facility] Start: 05-28-2022 End: 05-28-[address] KARRI NUNN . Facility:[facility] Procedures Date Procedure Procedure Detail Performing Clinician Start: 05-31-2023 Adult depression screening assessment Ree De Leonillo FACULTY DEAN-YOUTH CARE PROFESSIONAL Work Phone: Start: 02-08-2023 Adult depression screening assessment [facility] Work Phone: Plan of Treatment Date Care Activity Detail Author Start: 05-31-2024 Depression Screening Depression Scre [facility] Start: 05-31-2024 Tobacco Screening Tobacco Screening [facility] Start: 05-15-2024 Adult BMI Screening Adult BMI Screen ing [facility] Start: 05-15-2024 Tobacco Screening Tobacco Screening [facility] Start: 03-31-2024 Adult BMI Screening Adult BMI Screen ing [facility] Start: 03-31-2024 Tobacco Screening Tobacco Screening [facility] Start: 02-09-2024 Depression Screening Depression Scre ening [facility] Start: 11-23-2023 Adult BMI Follow Up Plan Adult BMI Follow Up Plan [facility] Start: 11-01-2023 End: 11-01-2023 Patient encounter procedure 11/01/2023 7:00 AM EDT Office Visit [facility] [address] [place] [address] Ree Bolaños, FACULTY DEAN-YOUTH CARE PROFESSIONAL [address] [place] [address] [facility] Internal [facility] - Family Medicine Start: 05-31-2023 End: 05-31-2023 Patient encounter procedure 05/31/2023 7:00 AM EST Office Visit [facility] Internal Medicine - Family Medicine [address] [place] [address] Ree Bolaños, FACULTY DEAN-YOUTH CARE PROFESSIONAL [address] [place] [address] [facility] - Family Medicine Start: 12-10-2022 Influenza vaccination Influenza Vacc ine [facility] Start: 2012 Screening for malign ant neoplasm of cervix Pap Smear [facility] Start: 2010 DTaP,Tdap and Td Vaccines (1 - Tdap) DTaP,Tdap and Td Vaccines (1 - Tdap) [facility] End: 05-31-2024 Hepatic function 2000 panel - Serum or Plasma Hepatic function panel Lab Routine Elevated liver enzymes 1 Occurrences starting 05/31/2023 until 05/31/2024 [facility] Comment on above: 1 Occurrences starti ng 05/31/2023 until 05/31/2024 End: 05-31-2024 Iron and TIBC Iron and TIBC Lab Routine Other iron deficiency anemia 1 Occurrences starting 05/31/2023 until 05/31/2024 [facility] Work Phone: Comment on above: 1 Occurrences starti ng 05/31/2023 until 05/31/2024 Payers Date Payer Category Payer Medicaid [id number] 2022 Medicaid [employer] [facility] [id number] 2022-Present [address] [place] [address] [id number] 1991 Unknown [id number] 1991 Unknown [id number] [id number] 1991 Unknown [id number] [id number] 1991 Unknown [id number] 2.16.840.1.526877.3.579.2.1286 1991 Unknown [id number] 2.16.840.1.027312.3.579.2.1286 1991 Unknown [id number] 2.16.840.1.214004.3.579.2.1286 1991 Unknown [id number] 2.16.840.1.839020.3.579.2.1286 1991 Unknown [id number] 2.16.840.1.187905.3.579.2.1286 1991 Unknown [id number] 2.16.840.1.453511.3.579.2.1286 1991 Unknown [id number] 2.16.840.1.923492.3.579.2.1286 1991 Unknown [id number] Social History Date Type Detail Facility Start: [facility]22 [facility] Start: 11-22-2022 Tobacco use and exposure Smokeless tobacco non-user [facility] Start: 04-14-2023 End: 05-31-2023 Alcohol intake Current non-drinker of alcohol (finding) [facility] Start: 05-22-2020 End: 04-14-2023 History of Social function [facility] Start: 05-22-2020 End: 04-14-2023 Tobacco use panel [facility] How hard is it for y ou to pay for the very basics like food, housing, medical care, and heating Not hard at all [facility] Start: 1990 Sex Assigned At Female P [facility] Start: 10-29-2022 Gender identity Identifies as female gender (finding) [facility] Start: 10-29-2022 Sexual orientation Heterosexual (fin ding) [facility] Goals Date Patient Goal Desired Activity /State Personal health goal Comment on above: Formatting of this n ote might be different from the original. Evaluation of progress towards goal: Current discharge plan is home with 24 hour caregiver support from parents. - Cydney Jacobsen RN 10/28/22 2:45 PM History of Present illness Narrative 05-31-2023 Ree Bolaños APRN-YOUTH CARE PROFESSIONAL - 05/31/2023 7:00 AM EST Note Date & Type Note Facility 05-31-2023 History of Present illness Narrative Images from the original note were not included. [address] [place] [facility] [id number] SUBJECTIVE: Patient ID: Jt Wilson is a [...] 10/28/2022 Performed by Jordin Zavala MD at [facility] LAPAROSCOPIC CHOLECYSTECTOMY N/A 03/31/2023 Performed by Carl Rogers MD at [facility] MYRINGOTOMY W/ TUBES PLACEMENT PEG TUBE REPLACEMENT; 20-22FR N/A 04/12/2016 Performed by Jd Small DO at [facility] THORACENTESIS 10/29/2022 Past Medical History: Diagnosis Date ABBE (acute kidney injury) ([facility]) 10/29/2022 Cerebral palsy ([facility]) Difficult intravenous access HL (hearing loss) moderate loss Pneumonia 10/28/2022 Salivation excessive 12/01/2016 Seizures ([facility]) Sinusitis, chronic Upper respiratory infection There is [...] every morning and BEFORE BEDTIME Seizure disorder ([facility]) - levETIRAcetam (KEPPRA) 100 mg/mL solution; Administer [...] Zapien 05/31/23 0810 documented in this encounter [facility] History of Present illness Narrative [...] addressed 3) follow-up p.r.n. Kimberly Jensen PA-C [facility] General Surgery [address] [place] [address] [facility] 04/14/23 1415 documented in this encounter [facility] Evaluation note Note Date & Type Note Facility Evaluation note Diagnosis Calculus of gallbladder without cholecystitis without obstruction- Primary documented in this encounter [facility] Evaluation note Note Date & Type Note Facility Evaluation note Diagnosis Benign essential HTN [facility] this [facility] Evaluation note Note Date & Type Note Facility Evaluation note Diagnosis Benign essential HTN- Primary Other iron deficiency anemia Elevated liver enzymes Other nonspecific abnormal serum enzyme levels Salivation excessive Disturbance of salivary secretion Seizure disorder (CMS-HCC) Unspecified epilepsy without mention of intractable epilepsy documented in this encounter [facility] Instructions Note Date & Type Note Facility Instructions Not on filedocumented in this en counter [facility] Instructions Note Date & Type Note Facility Instructions Not on filedocumented in this en counter [facility] Instructions Attachments Note Date & Type Note Facility Instructions The following attachments cannot be sent through Care Everywhere.Cerebral palsy (Spanish)Enteral Feeding (Spanish)documented in this encounter [facility] Summary Purpose Family History No Family [...] and content) DATE CREATED AUTHOR 07/17/2022 [facility] DATE CREATED AUTHOR AUTHOR'S ORGANIZ ATION 05/15/2023 [facility] DATE CREATED AUTHOR AUTHOR'S ORGANIZ ATION 06/01/2023 [facility] DATE CREATED AUTHOR AUTHOR'S ORGANIZ ATION 06/08/2023 [facility] DATE CREATED AUTHOR AUTHOR'S ORGANIZ ATION 08/18/2023 [facility] Specialists EPIC Reason for Visit (unrecogniz ed section and content) Reason Comments Post-op 1ST PO GB JOSE 03/12 1 Reason Comments Med Refill Reason Comments Hypertension Care Teams (unrecognized sec tion and content) Lactation Coordinator Relationship Specialty Start Date End Date Ree Bolaños, FACULTY DEAN-YOUTH CARE PROFESSIONAL [address] [place] [address] PCP - General Family Medicine 08/17/22 Lactation Coordinator Relationship Specialty Start Date End Date Ree Bolaños APRN-[facility] [address] [place] [address] PCP - [facility] 05/15/23 Lactation Coordinator Relationship Specialty Start Date End Date Ree Bolaños APRN-[facility] [address] [place] [address] PCP - [facility] 05/15/23 FOR RECORDS PERTAINING TO PATIENTS WHO [...] BE BASED ON THE PRIMARY CLINICAL RECORDS. [facility] provides no warranty or guarantee of the accuracy or completeness of information in this document.
[2023-09-11] MEDS: LEVOFLOXACIN IN DEXTROSE 5 % 500 MG/100 ML PIGGYBACK 100 MG IV (16:57)
[2023-09-11] MEDS: LEVETIRACETAM 500 MG/5 ML SOLUTION PO (20:03)
[2023-09-11] MEDS: GLYCOPYRROLATE 2 MG 2 EACH PO (20:03)
[2023-09-11] MEDS: LACTATED RINGER'S SOLUTION 1,000 ML 125 ML IV (20:04)
[2023-09-11] MEDS: ENOXAPARIN SODIUM 30 MG/0.3 ML SYRINGE SUBQ (20:07)
--- NOTE | 2023-09-11 20:13 | PC.NURSE ---
patient is nonambulatory
[2023-09-12] VITALS (8 sets, daily range): BP systolic 117; BP diastolic 78; PULSE 95–104; TEMP 37.3; O2SAT 93
[2023-09-12] MEDS: LACTATED RINGER'S SOLUTION 1,000 ML 125 ML IV (03:29)
[2023-09-12 05:26] LABS: Basophils Percent Auto 0.2 % (0.2-2.0); Hematocrit 29.8 % (36.0-48.0); Hemoglobin 9.6 g/dL (12.0-16.0); Immature Granulocytes Abs Auto 0.02 10^3/uL (0.00-0.03); Immature Granulocytes Pct Auto 0.4 % (0.0-0.5); Lymphocytes Absolute Auto 1.5 10^3/uL (1.2-3.8); Lymphocytes Percent Auto 29.1 % (20.5-60.0); Mean Corpuscular HGB Conc 32.2 g/dL (29.9-35.2); Mean Corpuscular Hemoglobin 29.9 pg (26.7-34.0); Mean Corpuscular Volume 92.8 fL (81.0-99.0); Mean Platelet Volume 11.7 fL (9.5-13.5); Monocytes Percent Auto 19.3 % (1.7-12.0); Neutrophils Absolute Auto 2.7 10^3/uL (1.4-6.5); Platelet Count 143 10^3/uL (150-450); Red Blood Count 3.21 10^6/uL (4.20-5.40); Red Cell Distribution Width 12.9 % (11.0-15.0); White Blood Count 5.2 10^3/uL (4.0-11.0)
[2023-09-12 05:55] LABS: Alanine Aminotransferase 70 U/L (14-59); Albumin Globulin Ratio 0.5; Albumin Level 2.4 g/dL (3.4-5.0); Alkaline Phosphatase 123 U/L (46-116); Anion Gap 12.2; Aspartate Amino Transferase 46 U/L (15-37); BUN Creatinine Ratio 21.9; Bilirubin Total 0.3 mg/dL (0.2-1.0); Calcium 8.8 mg/dL (8.5-10.1); Carbon Dioxide 24.6 mmol/L (21.0-32.0); Chloride 99 mmol/L (98-107); Estimated GFR (African America >60 (>=60); Estimated GFR (Non-African Ame >60 (>=60); Globulin 4.5 g/dL; Glucose 101 mg/dL (74-106); Potassium 3.8 mmol/L (3.5-5.1); Sodium 132 mmol/L (136-145); Total Protein 6.9 g/dL (6.4-8.2)
--- OUTSIDE RECORDS SUMMARY | 2023-09-12 07:17 | XMS_ITS | CCD ---
Author Organization [facility] [employer] Care Team Providers Care Information Technology Director Name Role Phone PAY ., DR ZENG Attending Unavailable MCQUEEN ., DR ADAM Emerson Primary Care Unavailable PAY ., DR ZENG Admitting Unavailable PAY ., DR ZENG Consulting Unavailable SHAKIR MARTINEZ Consulting Unavailable VALORIE, DR ADAMS Attending Unavailable VALORIE, DR ADAMS Admitting Unavailable CHARISSE ., DR ADAM Emerson Primary Care Unavailable VALORIE, DR ADAMS Consulting Unavailable Bolaños [employer] TECHNICIAN, Ree J Primary Care Provid er JAYA REE J Primary Care Unavailable CHELSI HOUSE Attending Unavailable CHELSI HOUSE Attending Unavailable CHELSI HOUSE Referring Unavailable BOLAÑOS, REE J Primary Care Unavailable Bolaños [employer] TECHNICIAN, Ree J Primary Care Provid er REE [...] Sulfonamides (Antibiotic) Drug allergy (disorder) 7 [facility] Repository (6 sources) Sulfonamides (Antibiotic); Translations: [SULFA (SULFONAMIDE ANTIBIOTICS)] Propensity to adverse reactions to drug 6 [employer] Work Phone: Medications Current Medications Medication Drug [...] (KEPPRA) 100 mg/mL solution Indications: Seizure disorder ([facility]) Administer 5 mL (500 mg total) per [...] 3 Episodic Other aftercare (1 source) Other care home (current) drug therapy; Translations: [OTH C[employer] LOADER CURRENT DRUG THERAPY] Onset: 3 Episodic Other [...] 05-31-2023 Iron [Mass/Vol] 66 ug/dL Normal 50-170 [facility] Comment on above: Performed By: #### F EPR, LIVR #### [facility] ([id number]) [address] [place] [address] IRON BINDING 417 ug/dL Normal 250-425 [facility] Comment on above: Performed By: #### F EPR, LIVR #### [facility] ([id number]) [address], [address] [place] [address] IRON SATURATION 16 % SATURATION Normal 15-50 [facility] Comment on above: Performed By: #### F EPR, LIVR #### [facility] ([id number]) [address], [address] [place] [address] LIVER PANELon 05-31-2023 Albumin [Mass/Vol] 4.3 g/dL Normal 3.2-5.3 [facility] Comment on above: Performed By: #### F EPR, LIVR #### [facility] ([id number]) [address], [address] [place] [address] ALP [Catalytic activity/Vol] 104 U/L Normal 39-130 [facility] Comment on above: Performed By: #### F EPR, LIVR #### [facility] ([id number]) [address], [address] [place] [address] ALT [Catalytic activity/Vol] 79 U/L High 0-31 [facility] Comment on above: Performed By: #### F EPR, LIVR #### [facility] ([id number]) [address], [address] [place] [address] AST [Catalytic activity/Vol] 59 U/L High 0-41 [facility] Comment on above: Performed By: #### F EPR, LIVR #### [facility] ([id number]) [address], [address] [place] [address] Bilirubin [Mass/Vol] 0.3 mg/dL Normal 0.3-1.2 [facility] Comment on above: Performed By: #### F EPR, LIVR #### [facility] ([id number]) [address], [address] [place] [address] Bilirubin.direct [Mass/Vol] 0.1 mg/dL Normal 0.0-0.4 [facility] Comment on above: Performed By: #### F EPR, LIVR #### [facility] ([id number]) [address], [address] [place] [address] Protein [Mass/Vol] 8.0 g/dL Normal 6.0-8.0 [facility] Comment on above: Performed By: #### F EPR, LIVR #### [facility] ([id number]) [address], [address] [place] [address] XR ABDOMEN AP 1 VWon 024 XR [...] Ayala MD on 05/15/2023 5:02 PM Normal [facility] Surgical Pathologyon 023 Surgical Pathology Normal [facility] Comment on above: Result Comment: [facility] [address] [place] [address] Surgical Pathology Consultation Patient Name:JT WILSON:1990 (Age: 33)Gender:FTaken:03/31/2023Reported:04/08/2023hysician(s):Carl Rogers M.D. ( )Copy To: Rec. #:[id number]: #[id number] Final Pathologic Diagnosis Gallbladder, cholecystectomy: Active chronic cholecystitis and cholelithiasis with focal mucosal erosion. Two benign periductal lymph nodes present. Report Electronically Signed Out ao/04/08/2023kathryn Casey MD Interpretation performed at [facility], [address] [place] [address], License number: [id number]. Clinical History Cholelithiasis. Gross Description Received in [...] gallbladder wall is 0.2-0.3 cm in thickness. Supervisor Tree Trimming cross-sections are submitted within cassette A. (2, ss, [id number],m6) DM. dm/03/31/2023SSI Specimen(s) Received Gallbladder Fee Codes(s): 1; 70048 LEVETIRACETAM, SERUM OR PLAS MAon 07-12-2022 Levetiracetam, S 28.2 ug/mL Normal 10.0-40.0 [facility] Comment on above: Performed By: #### K EPPRA #### [facility] [address] [place] [address] [address] Gurmeet Ivan CBC AUTO DIFFon 07-08-2022 BASO # 0.0 103/ul Normal 0.0-0.1 [facility] Comment on above: Performed By: #### C BC #### [facility] [address] [place] [address] Dr. Gurmeet Ivan Basophils/100 WBC (Bld) 0.4 % Normal 0.2-2.0 [facility] Comment on above: Performed By: #### C BC #### [facility] [address] [place] [address] Dr. Gurmeet Ivan EO # 0.1 103/ul Normal 0.0-0.7 [facility] Comment on above: Performed By: #### C BC #### [facility] [address] [place] [address] Dr. Gurmeet Ivan Eosinophils/100 WBC (Bld) 1.0 % Normal 0.9-7.0 [facility] Comment on above: Performed By: #### C BC #### [facility] [address] [place] [address] Dr. Gurmeet Ivan Erythrocyte distribution width (RBC) [Ratio] 13.6 % Normal 11.0-15.0 [facility] Comment on above: Performed By: #### C BC #### [facility] [address] [place] [address] Dr. Gurmeet Ivan Hematocrit (Bld) [Volume fraction] 38.9 % Normal 36.0-48.0 [facility] Comment on above: Performed By: #### C BC #### [facility] [address] [place] [address] Dr. Gurmeet Ivan Hemoglobin (Bld) [Mass/Vol] 13.0 g/dL Normal 12.0-16.0 [facility] Comment on above: Performed By: #### C BC #### [facility] [address] [place] [address] Dr. Gurmeet Ivan IG # 0.02 10e3/ul Normal 0.00-0.03 [facility] Comment on above: Performed By: #### C BC #### [facility] [address] [place] [address] Dr. Gurmeet Ivan IG % 0.3 % Normal 0.0-0.5 [facility] Comment on above: Performed By: #### C BC #### [facility] [address] [place] [address] Dr. Gurmeet Ivan LYMPH # 1.5 103/ul Normal 1.2-3.8 [facility] Comment on above: Performed By: #### C BC #### [facility] [address] [place] [address] Dr. Gurmeet Ivan Lymphocytes/100 WBC (Bld) 22.0 % Normal 20.5-60.0 [facility] Comment on above: Performed By: #### C BC #### [facility] [address] [place] [address] Dr. Gurmeet Ivan MANUAL DIFF REQ NO Normal [facility] Comment on above: Performed By: #### C BC #### [facility] [address] [place] [address] Dr. Gurmeet Ivan MCH (RBC) [Entitic mass] 29.3 pg Normal 26.7-34.0 [facility] Comment on above: Performed By: #### C BC #### [facility] [address] [place] [address] Dr. Gurmeet Ivan MCHC (RBC) [Mass/Vol] 33.4 g/dL Normal 29.9-35.2 [facility] Comment on above: Performed By: #### C BC #### [facility] [address] [place] [address] Dr. Gurmeet Ivan MCV (RBC) [Entitic vol] 87.8 fL Normal 81.0-99.0 [facility] Comment on above: Performed By: #### C BC #### [facility] [address] [place] [address] Dr. Gurmeet Ivan MONO # 0.5 103/ul Normal 0.3-0.8 [facility] Comment on above: Performed By: #### C BC #### [facility] [address] [place] [address] Dr. Gurmeet Ivan Monocytes/100 WBC (Bld) 6.6 % Normal 1.7-12.0 [facility] Comment on above: Performed By: #### C BC #### [facility] [address] [place] [address] Dr. Gurmeet Ivan NEUT # 4.8 103/ul Normal 1.4-6.5 [facility] Comment on above: Performed By: #### C BC #### [facility] [address] [place] [address] Dr. Gurmeet Ivan Neutrophils/100 WBC (Bld) 69.7 % Normal 43.0-75.0 [facility] Comment on above: Performed By: #### C BC #### [facility] [address] [place] [address] Dr. Gurmeet Ivan Platelet mean volume (Bld) [Entitic vol] 11.5 fL Normal 9.5-13.5 [facility] Comment on above: Performed By: #### C BC #### [facility] [address] [place] [address] Dr. Gurmeet Ivan PLT 229 103/ul Normal 150-450 [facility] Comment on above: Performed By: #### C BC #### [facility] [address] [place] [address] Dr. Gurmeet Ivan RBC 4.43 106/ul Normal 4.20-5.40 [facility] Comment on above: Performed By: #### C BC #### [facility] [address] [place] [address] Dr. Gurmeet Ivan WBC 6.9 103/ul Normal 4.0-11.0 [facility] Comment on above: Performed By: #### C BC #### [facility] [address] [place] [address] Dr. Gurmeet Ivan DEPAKENE/ VALPROIC ACIDon DEPAKENE 59.7 ug/ml Normal 50.0-100.0 [facility] Comment on above: Performed By: #### B MP, LIVER, VALP #### [facility] [address] [place] [address] Dr. Gurmeet Ivan LIVER PROFILEon 07-08-2022 Albumin [Mass/Vol] 3.7 g/dL Normal 3.4-5.0 [facility] Comment on above: Performed By: #### B MP, LIVER, VALP #### [facility] [address] [address] [address] Gurmeet Ivan Albumin/Globulin [Mass ratio] 0.8 {ratio} Normal [facility] Comment on above: Performed By: #### B MP, LIVER, VALP #### [facility] [address] [address] [address] Gurmeet Ivan ALP [Catalytic activity/Vol] 132 U/L Critically high 46-116 [facility] Comment on above: Performed By: #### B MP, LIVER, VALP #### [facility] [address] [address] [address] Gurmeet Ivan ALT [Catalytic activity/Vol] 51 U/L Normal 14-59 [facility] Comment on above: Performed By: #### B MP, LIVER, VALP #### [facility] [address] [place] [address] Dr. Gurmeet Ivan AST [Catalytic activity/Vol] 34 U/L Normal 15-37 [facility] Comment on above: Performed By: #### B MP, LIVER, VALP #### [facility] [address] [place] [address] Dr. Gurmeet Ivan BILI, CONJUGATED 0.1 mg/dL Normal 0.0-0.2 [facility] Comment on above: Performed By: #### B MP, LIVER, VALP #### [facility] [address] [place] [address] Dr. Gurmeet Ivan Bilirubin [Mass/Vol] 0.2 mg/dL Normal 0.2-1.0 [facility] Comment on above: Performed By: #### B MP, LIVER, VALP #### [facility] [address] [place] [address] Dr. Gurmeet Ivan Globulin (S) [Mass/Vol] 4.8 g/dL Normal [facility] Comment on above: Performed By: #### B MP, LIVER, VALP #### [facility] [address] [address] [address] Gurmeet Ivan Protein [Mass/Vol] 8.5 g/dL Critically high 6.4-8.2 [facility] Comment on above: Performed By: #### B MP, LIVER, VALP #### [facility] [address] [place] [address] Dr. Gurmeet Ivan PROF CHEM 8 (BAS METB)on Anion gap [Moles/Vol] 10.8 mmol/L Normal [facility] Comment on above: Performed By: #### B MP, LIVER, VALP #### [facility] [address] [place] [address] Dr. Gurmeet Ivan Calcium [Mass/Vol] 9.3 mg/dL Normal 8.5-10.1 [facility] Comment on above: Performed By: #### B MP, LIVER, VALP #### [facility] [address] [place] [address] Dr. Gurmeet Ivan Chloride [Moles/Vol] 101 mmol/L Normal 98-107 [facility] Comment on above: Performed By: #### B MP, LIVER, VALP #### [facility] [address] [place] [address] Dr. Gurmeet Ivan CO2 [Moles/Vol] 30.6 mmol/L Normal 21.0-32.0 [facility] Comment on above: Performed By: #### B MP, LIVER, VALP #### [facility] [address] [place] [address] Dr. Gurmeet Ivan Creatinine [Mass/Vol] 0.37 mg/dL Critically low 0.55-1.02 [facility] Comment on above: Performed By: #### B MP, LIVER, VALP #### [facility] [address] [place] [address] Dr. Gurmeet Ivan EGFR-AF TOGOLESE 247 mL/min/1.73m2 Normal >=60 [facility] Comment on above: Performed By: #### B MP, LIVER, VALP #### [facility] [address] [place] [address] Dr. Gurmeet Ivan EGFR-NON AF TOGOLESE 204 mL/min/1.73m2 Normal >=60 [facility] Comment on above: Performed By: #### B MP, LIVER, VALP #### [facility] [address] [address] [address] Gurmeet Ivan Glucose [Mass/Vol] 88 mg/dL Normal 74-106 [facility] Comment on above: Performed By: #### B MP, LIVER, VALP #### [facility] [address] [place] [address] Dr. Gurmeet Ivan Potassium [Moles/Vol] 4.4 mmol/L Normal 3.5-5.1 [facility] Comment on above: Performed By: #### B MP, LIVER, VALP #### [facility] [address] [address] [address] Gurmeet Ivan Sodium [Moles/Vol] 138 mmol/L Normal 136-145 [facility] Comment on above: Performed By: #### B MP, LIVER, VALP #### [facility] [address] [place] [address] Dr. Gurmeet Ivan Urea nitrogen [Mass/Vol] 17.0 mg/dL Normal 7.0-18.0 [facility] Comment on above: Performed By: #### B MP, LIVER, VALP #### [facility] [address] [address] [address] Gurmeet Ivan Urea nitrogen/Creatinin e [Mass ratio] 45.9 mg/mg Normal [facility] Comment on above: Performed By: #### B MP, LIVER, VALP #### [facility] [address] [place] [address] Dr. Gurmeet Ivan Covid-19 PCR ([facility])on 05-12 SARS-CoV-2 (COVID-19) RNA AUREA+probe Ql (Unsp spec) Detected Abnormal NOT DETECTED [facility] Comment on above: Result Comment: This test is not yet approved or cleared by the [place] FDA. When there are no FDA-approved or cleared tests available, and other criteria are met, FDA can make tests available under an emergency access mechanism called an Emergency Use Authorization (EUA). The EUA for this test is supported by the Director Of Channel Marketing of Health and Human Service's declaration that [...] used). Performed By: #### C VDTB #### [facility] [address] [place] [address] Dr. Gurmeet Ivan INFLUENZA A AND B [facility] 05[facility] BELOW Normal [facility] Comment on above: Result Comment: Nega tive for Flu A protein angiten. Infection due to Flu A cannot be ruled out. Flu A angiten in the sample may be below the detection limit of the test. Performed By: #### I NFLUAB #### [facility] [address] [place] [address] Dr. Gurmeet Ivan [facility] SEE BELOW Normal [facility] Comment on above: Result Comment: Nega tive for Flu B protein antigen. Infection due to Flu B cannot be ruled out. Flu B antigen in the sample may be below the detection limit of the test. Performed By: #### I NFLUAB #### [facility] [address] [place] [address] Dr. Gurmeet Ivan INFLUENZA A AG Negative Normal NEGATIVE SEE COMMENT [facility] Comment on above: Performed By: #### I NFLUAB #### [facility] [address] [place] [address] Dr. Gurmeet Ivan INFLUENZA B AG Negative Normal NEGATIVE SEE COMMENT [facility] Comment on above: Performed By: #### I NFLUAB #### [facility] [address] [place] [address] Dr. Gurmeet Ivan XR CHEST 2 Von [...] by: SHAKIR MARTINEZ Date: 2022-05-28 10:53 Normal [facility] Vital Signs Date Time Vital Sign Value Performing Clinician Facility 05-31-2023 07:07-0500 Body height 154.9 cm Ree Bolaños [employer] TECHNICIAN Work Phone: [facility] 05-31-2023 07:07-0500 Body temperature 97.39 [degF] Ree Bolaños [employer] TECHNICIAN Work Phone: [facility] 05-31-2023 07:07-0500 Diastolic blood pressure 68 mm[Hg] Ree De Leonillo [employer] TECHNICIAN Work Phone: [facility] 05-31-2023 07:07-0500 Heart rate 76 /min Ree De Leonillo [employer] TECHNICIAN Work Phone: [facility] 05-31-2023 07:07-0500 SaO2% (BldA) [Mass fraction] 97 % Ree Bolaños APRN-SCHOOL BUS TECHNICIAN [facility] 05-31-2023 07:07-0500 Systolic blood pressure 100 mm[Hg] Ree Bolaños [employer] TECHNICIAN [facility] 04-14-2023 14:04-0500 Body height 154.9 cm Avalara PA [facility] 04-14-2023 14:04-0500 Body mass index (BMI) [Ratio] 12.83 kg/m2 Avalara PA [facility] 04-14-2023 14:04-0500 Body weight 30.8 kg Avalara PA [facility] En[facility] Encounter Date Encounter Type Care Provider Facility Start: 08-16-2023 End: 08-16-2023 ambulatory BRYAN EUGENE Not Available Start: 05-31-2023 End: 06-01-[address] [facility] Start: 05-31-2023 End: 05-31-2023 ambulatory [facility] Start: 05-31-2023 End: 05-31-2023 Office outpatient visit 25 minutes Ree Bolaños [employer] TECHNICIAN [facility] Comment on above: Benign essential HTN (Primary Dx); Other iron deficiency anemia; Elevated liver enzymes; Salivation excessive; Seizure disorder ([facility]) Start: 05-21-2023 Refill Ree J [facility] J[employer] TECHNICIAN Work Phone: [facility] Comment on above: Benign essential HTN Start: 05-15-2023 End: 05-16-2023 Emergency department patient visit [facility] Start: 04-14-2023 End: 04-14-2023 ambulatory [facility] Start: 04-14-2023 End: 04-14-2023 Office outpatient visit 15 minutes [facility] Work Phone: [facility] Comment on above: Calculus of gallblad birgit without cholecystitis without obstruction (Primary Dx) Start: 03-31-2023 End: 03-31-2023 [facility] Start: 03-31-2023 End: 03-31-2023 Evaluation and management of inpatient CARL Thompson [facility] Start: 07-08-2022 End: 07-09-[address] BRYAN EUGENE Facility:[facility] Start: 05-28-2022 End: 05-28-[address] KARRI NUNN . Facility:[facility] Procedures Date Procedure Procedure Detail Performing Clinician Start: 05-31-2023 Adult depression screening assessment Ree De Leonillo [employer] TECHNICIAN Work Phone: Start: 02-08-2023 Adult depression screening assessment [facility] Work Phone: Plan of Treatment Date Care Activity Detail Author Start: 05-31-2024 Depression Screening Depression Scre [facility] Start: 05-31-2024 Tobacco Screening Tobacco Screening [facility] Start: 05-15-2024 Adult BMI Screening Adult BMI Screen ing [facility] Start: 05-15-2024 Tobacco Screening Tobacco Screening [facility] Start: 03-31-2024 Adult BMI Screening Adult BMI Screen ing [facility] Start: 03-31-2024 Tobacco Screening Tobacco Screening [facility] Start: 02-09-2024 Depression Screening Depression Scre ening [facility] Start: 11-23-2023 Adult BMI Follow Up Plan Adult BMI Follow Up Plan [facility] Start: 11-01-2023 End: 11-01-2023 Patient encounter procedure 11/01/2023 7:00 AM EDT Office Visit [facility] [address] [place] [address] Ree Bolaños, J[employer] TECHNICIAN [address] [place] [address] [facility] Start: 05-31-2023 End: 05-31-2023 Patient encounter procedure 05/31/2023 7:00 AM EST Office Visit [facility] [address] [place] [address] Ree Bolaños, JEWEL [employer] TECHNICIAN [address] [place] [address] [facility] Start: 12-10-2022 Influenza vaccination Influenza Vacc ine [facility] Start: 2012 Screening for malign ant neoplasm of cervix Pap Smear [facility] Start: 2010 DTaP,Tdap and Td Vaccines (1 - Tdap) DTaP,Tdap and Td Vaccines (1 - Tdap) [facility] End: 05-31-2024 Hepatic function 2000 panel - Serum or Plasma Hepatic function panel Lab Routine Elevated liver enzymes 1 Occurrences starting 05/31/2023 until 05/31/2024 [facility] Comment on above: 1 Occurrences starti ng 05/31/2023 until 05/31/2024 End: 05-31-2024 Iron and TIBC Iron and TIBC Lab Routine Other iron deficiency anemia 1 Occurrences starting 05/31/2023 until 05/31/2024 [facility] Work Phone: Comment on above: 1 Occurrences starti ng 05/31/2023 until 05/31/2024 Payers Date Payer Category Payer Medicaid [id number] 2022 Medicaid [employer] [facility] [id number] 2022-Present [address] [place] [address] [id number] 1990 Unknown [id number] 1990 Unknown [id number] 1990 Unknown [id number] 1990 Unknown [id number] 1990 Unknown [id number] 1990 Unknown [id number] 1990 Unknown [id number] 1991 Unknown [id number] 1991 Unknown [id number] 1991 Unknown [id number] 1991 Unknown [id number] Social History Date Type Detail Facility Start: [facility]22 [facility] Start: 11-22-2022 Tobacco use and exposure Smokeless tobacco non-user [facility] Start: 04-14-2023 End: 05-31-2023 Alcohol intake Current non-drinker of alcohol (finding) [facility] Start: 05-22-2020 End: 04-14-2023 History of Social function [facility] Start: 05-22-2020 End: 04-14-2023 Tobacco use panel [facility] How hard is it for y ou to pay for the very basics like food, housing, medical care, and heating Not hard at all [facility] Start: 1990 Sex Assigned At Female [facility] Start: 10-29-2022 Gender identity Identifies as female gender (finding) [facility] Start: 10-29-2022 Sexual orientation Heterosexual (fin ding) [facility] Goals Date Patient Goal Desired Activity /State Personal health goal Comment on above: Formatting of this n ote might be different from the original. Evaluation of progress towards goal: Current discharge plan is home with 24 hour caregiver support from parents. - Cydney Jacobsen RN 10/28/22 2:45 PM History of Present illness Narrative 05-31-2023 Ree Bolaños APRN-SCHOOL BUS TECHNICIAN - 05/31/2023 7:00 AM EST Note Date & Type Note Facility 05-31-2023 History of Present illness Narrative Images from the original note were not included. [address] [place] [facility] [id number] SUBJECTIVE: Patient ID: Jt Wilson is a [...] 10/28/2022 Performed by Jordin Zavala MD at [facility] LAPAROSCOPIC CHOLECYSTECTOMY N/A 03/31/2023 Performed by Carl Rogers MD at [facility] MYRINGOTOMY W/ TUBES PLACEMENT PEG TUBE REPLACEMENT; 20-22FR N/A 04/12/2016 Performed by Jd Small DO at [facility] TH[facility] 10/29/2022 Past Medical History: Diagnosis Date ABBE (acute kidney injury) ([facility]) 10/29/2022 Cerebral palsy ([facility]) Difficult intravenous access HL (hearing loss) moderate loss Pneumonia 10/28/2022 Salivation excessive 12/01/2016 Seizures ([facility]) Sinusitis, chronic Upper [...] every morning and BEFORE BEDTIME Seizure disorder ([facility]) - levETIRAcetam (KEPPRA) 100 mg/mL [...] Zapien 05/31/23 0810 documented in this encounter [facility] History of Present illness Narrative 04-14-2023 NG[facility] [...] No erythema no discharge no bleeding. Assessment: tJ Wilson is a 33 y.o.female status post laparoscopic cholecystectomy. No complication. Plan: 1) pathology report reviewed with the caregiver 2) all questions and concerns were addressed 3) follow-up p.r.n. Kimberly Jensen PA-C [facility] General Surgery [address] [place] [address] [facility] [place] 04/14/23 1415 documented in this encounter [facility] Evaluation note Note Date & Type Note Facility Evaluation note Diagnosis Calculus of gallbladder without cholecystitis without obstruction- Primary [facility] this [facility] Evaluation note Note Date & Type Note Facility Evaluation note Diagnosis Benign essential HTN [facility] Evaluation note Note Date & Type Note Facility Evaluation note Diagnosis Benign essential HTN- Primary Other iron deficiency anemia Elevated liver enzymes Other nonspecific abnormal serum enzyme levels Salivation excessive Disturbance of salivary secretion Seizure disorder (CMS-HCC) Unspecified epilepsy without mention of intractable epilepsy [facility] this encounter [facility] Instructions Note Date & Type Note Facility Instructions Not on filedocumented in this en counter [facility] Instructions Note Date & Type Note Facility Instructions Not on filedocumented in this en counter [facility] Instructions Attachments Note Date & Type Note Facility Instructions The following attachments cannot be sent through Care Everywhere.Cerebral palsy (Hungarian)Enteral Feeding (Hungarian)documented in this encounter [facility] Summary Purpose Family History No [...] and content) DATE CREATED AUTHOR 07/17/2022 [facility] DATE CREATED AUTHOR AUTHOR'S ORGANIZ ATION 05/15/2023 [facility] DATE CREATED AUTHOR AUTHOR'S ORGANIZ ATION 06/01/2023 [facility] DATE CREATED AUTHOR AUTHOR'S ORGANIZ ATION 06/08/2023 [facility] DATE CREATED AUTHOR AUTHOR'S ORGANIZ ATION 08/18/2023 [facility] d[facility] Specialists EPIC Reason for Visit (unrecogniz ed section and content) Reason Comments Post-op 1ST PO GB JOSE 03/12 1 Reason Comments Med Refill Reason Comments Hypertension Care Teams (unrecognized sec tion and content) Information Technology Director Relationship Specialty Start Date End Date Ree Bolaños, JEWEL BEARING DRILLER-SCHOOL BUS TECHNICIAN [address] [place] [phone] PCP - General Family Medicine 08/17/22 Information Technology Director Relationship Specialty Start Date End Date Ree Bolaños APRN-[facility] [address] [place] [address] PCP - [facility] 05/15/23 Information Technology Director Relationship Specialty Start Date End Date Ree Bolaños APRN-[facility] [address] [place] [address] PCP - [facility] 05/15/23 FOR RECORDS PERTAINING TO PATIENTS [...] BE BASED ON THE PRIMARY CLINICAL RECORDS. [facility]. provides no warranty or guarantee of the accuracy or completeness of information in this document.
[2023-09-12] MEDS: GLYCOPYRROLATE 2 MG 2 EACH PO ×2 (07:49→08:57)
[2023-09-12] MEDS: LEVETIRACETAM 500 MG/5 ML SOLUTION PO (07:52)
[2023-09-12 08:53] LABS: Valproic Acid 43.3 ug/mL (50.0-100.0)
--- NOTE | 2023-09-12 09:56 | P.HP_ITS ---
<Statement entered by Shaikh Anson MD - 09/12/23 12:08> This documentation has been reviewed and approved. Patient seen and examined. Case discussed with Zuly. Hx obtained from father as patient is minimally verbal. Exam: cachectic, underdounrished. CTA b/l normal RR NT, ND, normal bowel sounds. PEG tube in place Assessment: SIRS UTI Seizure disorder Elevated liver enzymes Cerebral palsy severe PCP Patient improved with IV hydration. Stable for discharge on oral abx. Reusme home medications. F/u with PCP in one week HPI H&P: HPI History of Present Illness Chief complaint: FEVER/GENERAL WEAKNESS, UTI AND SEPSIS Narrative: 09/12/23 1013 This is a 33-year-old female patient with a past medical history significant for advanced cerebral palsy with severe cognitive impairment, nonverbal and nonambulatory, seizure disorder, and chronic liver enzyme elevation of unclear etiology; who presented to the ED late yesterday morning with concerns for a fever. The patient had presented to the ED 2 days before after vomiting as there was concern for possible aspiration. Workup in the ED at that time was unremarkable and she was discharged home with recommendation to return if she developed a fever. 48 hours ago the patient developed a fever and was monitored at home, but as it persisted she was brought to the ED for further evaluation. Workup in the ED remain negative for any pneumonia or respiratory abnormality with a normal chest x-ray. A CT of the abdomen and pelvis did note a large stool burden but no evidence of obstruction. A UA was positive for UTI. As the patient had bandemia she was admitted overnight in observation for IV fluids and IV antibiotics yesterday afternoon by the hospitalist service. At the time of my exam the patient is resting quietly in bed. She is awake and alert but unable to cooperate with exam due to her baseline CP/cognitive impairment. She has been afebrile for almost 24 hours and her vital signs remained stable overnight. As she is doing well, she will be discharged home in stable condition and should follow-up with her PCP within 5 to 7 days. She will be given a prescription for a 7-day course of cefdinir suspension Opioid HPI Opioid Management Most Recent Opioid Data: Last Pain Scale 6 10/25/22 15:53 Last Pain Assessment 09/12/23 10:00 Last MAR Pain Assessment 09/11/23 12:59 Review of Systems ROS Status of ROS unobtainable due to mental status PFSH PFS Medical History (Updated 09/12/23 @ 10:13 by Zuly Dye NP) Elevated LFTs ?R79.89 - Other specified abnormal findings of blood chemistry (ICD-10) Constipation ?K59.00 - Constipation, unspecified (ICD-10) Cerebral palsy ?G80.9 - Cerebral palsy, unspecified (ICD-10) Visual impairment ?H54.7 - Unspecified visual loss (ICD-10) Hearing impairment ?H91.90 - Unspecified hearing loss, unspecified ear (ICD-10) History of gastrostomy tube placement Scoliosis ?M41.9 - Scoliosis, unspecified (ICD-10) Hx of seizure disorder ?Z86.69 - Personal history of other diseases of the nervous system and sense organs (ICD-10) Severe intellectual disability ?F72 - Severe intellectual disabilities (ICD-10) Surgical History History of back surgery ?Z98.890 - Other specified postprocedural states (ICD-10) Family History (Updated 09/11/23 @ 16:06 by Norma Rivera RN) Grandfather Family history of cancer Family history of hypertension Family history of stroke Father Family history of hypertension Aunt Family history of stroke Social History (Updated 09/11/23 @ 16:06 by Norma Rivera RN) Within the past year, how often did you have a drink containing alcohol: never Score interpretation: A score less than 3 is consistent with normal alcohol consumption. Smoking status: Never smoker Meds Home Medications and Allergies Home Medications ?Medication ?Instructions ?Recorded ?Confirmed ?Type levetiracetam 100 mg/mL oral 500 mg feeding tube Q12H 10/25/22 09/11/23 History solution (Keppra) valproic acid (as sodium salt) 250 250 mg feeding tube BID 10/26/22 09/11/23 History mg/5 mL (5 mL) oral solution glycopyrrolate 2 mg tablet 2 mg PO BID 09/11/23 09/11/23 History (Rigo Valencia) polyethylene glycol 3350 17 17 g PO BID PRN constipation 09/12/23 09/12/23 History gram/dose oral powder (Miralax) Allergies Allergy/AdvReac Type Severity Reaction Status Date / Time Sulfa (Sulfonamide Allergy Intermediate Verified 10/25/22 12:31 Antibiotics) Exam Constitutional Vital Signs, click to edit/add: Last Vital Signs Temp 99.1 F 09/12/23 05:17 Pulse 103 H 09/12/23 08:00 Resp 20 09/12/23 05:17 BP 117/78 09/12/23 05:17 Pulse Ox 93 L 09/12/23 05:17 O2 Del Method Room Air 09/12/23 05:17 Common normals: no apparent distress and alert Orientation/consciousness: Yes awake HENAR Common normals: normocephalic, head/scalp atraumatic, external nose normal and moist oral mucous membranes Eye Common normals: PERRL, EOMs intact bilaterally, conjunctivae normal and no scleral icterus Alignment: alignment normal Eyelid: eyelids normal Neck & C-Spine Common normals: full ROM, supple and no JVD Chest Common normals: inspection of chest normal Chest: symmetrical chest wall rise Respiratory Common normals: normal respiratory effort, no retractions, no use of accessory muscles and clear to auscultation bilaterally Cardio Common normals: no JVD, regular rate, regular rhythm, S1 normal heart sound, S2 normal heart sound, no gallops, no clicks, no rub and peripheral pulses 2+ throughout Heart sounds: murmur (HSM 2/6) GI Common normals: Normal to inspection, nondistended, normoactive bowel sounds present, non-tender, no hepatosplenomegaly, no masses and no bruits Palpation: firm (Not tender) Bladder/kidney exam: bladder normal to palpation Back & Pelvis Common normals: thoracic and lumbar spine normal to inspection Extremity Common normals: normal capillary refill General: no clubbing and no cyanosis Other: Chronic CP contractures Neuro Maddie Coma Scale: GCS not evaluated Common normals: moves all extremities Sensorium/orientation: other (Severe cognitive impairment d/t CP) Speech: other (Non-verbal d/t CP) Motor exam: other (Chronic CP contractures/motor deficits) Results Labs Labs: Short CBC 09/11/23 09/12/23 Range/Units 12:03 05:04 WBC 5.3 5.2 (4.0-11.0) 10^3/uL Hgb 10.8 L 9.6 L (12.0-16.0) g/dL Hct 33.8 L 29.8 L (36.0-48.0) % Plt Count 176 143 L (150-450) 10^3/uL BMP 09/11/23 09/12/23 12:03 05:04 Sodium 134 L 132 L Potassium 4.5 3.8 Chloride 97 L 99 Carbon Dioxide 31.2 24.6 BUN 16.0 7.0 Creatinine 0.41 L 0.32 L Glucose 100 101 Calcium 9.0 8.8 Liver Function 09/11/23 09/12/23 Range/Units 12:03 05:04 Total Bilirubin 0.4 0.3 (0.2-1.0) mg/dL AST 77 H 46 H (15-37) U/L ALT 109 H 70 H (14-59) U/L Alkaline Phosphatase 156 H 123 H (46-116) U/L Albumin 3.0 L 2.4 L (3.4-5.0) g/dL Urine 09/11/23 Range/Units 12:35 Urine Color Lt. yellow (YELLOW) Urine Clarity Clear (CLEAR) Urine pH 8.0 (5.0-9.0) Ur Specific [place] 1.015 (1.005-1.025) Urine Protein 30 A (NEG/TRACE) mg/dL Urine Glucose (UA) Negative (NEGATIVE) mg/dL Pulse Oximetry Attestation: I have reviewed the pertinent pulse oximetry results. Imaging Chest x-ray: Attestation: I have reviewed the pertinent imaging results. Radiologist's impression: IMPRESSION: No acute heart or lung disease identified. CT scan - abdomen: Attestation: I have reviewed the pertinent imaging results. Radiologist's impression: IMPRESSION: 1. Posterior spinal fusion hardware causing streak artifact and limiting the sensitivity of this examination. 2. Large stool burden of the rectum. Above-average stool burden of the sigmoid colon and left colon. There is gaseous distention of the transverse colon. 3. No small bowel dilation. 4. Nonobstructive stones of the right kidney. 5. Other discernible findings as described. Assessment and Plan Assessment and Plan (1) UTI (urinary tract infection): Assessment and Plan: Acute * Adm observation * IVPB Rocephin * BCx2 and urine cx pending final C&S * Defervesced - afebrile x nearly 24 hrs * No leukocytosis * OK to D/C home with Cefdinir suspension via PEG 300 mg BID x 7 days Qualifiers: Hematuria presence: without hematuria Urinary tract infection type: site unspecified Qualified Code(s): N39.0 - Urinary tract infection, site not specified (2) SIRS due to infectious process without acute organ dysfunction: Assessment and Plan: Acute * SIRS (T 103.1, HR 125, RR 18-32), Bandemia, Source - UTI. No end organ dysfunction noted - kidney/liver/lungs/brain WNL for pt baseline * At risk for sepsis - 2 liter IVF boluses given in ED * LR at 125/hr overnight * Pt remains stable this morning - ok to d/c (3) Bandemia: Assessment and Plan: Acute * 2/2 acute UTI * At risk for sepsis - see SIRS above (4) Constipation: Assessment and Plan: Acute * Large stool burden on CT A/P imaging * Nursing to give prn constipation medications * Use home miralax BID scheduled until stools soften, then resume PRN dosing (5) Cerebral palsy: Assessment and Plan: Chronic * Stable at baseline mentation and activity (6) Hx of seizure disorder: Assessment and Plan: Chronic * Continue home Keppra and Valproic Acid * Valproic acid level ordered - send out, pending (7) Severe intellectual disability: Assessment and Plan: Chronic * Stable at baseline (2/2 CP) (8) Elevated LFTs: Assessment and Plan: Chronic * Improved from baseline * Bili remains WNL Urinary Catheter Management Urinary Catheter Management Straight: Cath placed during this visit: Yes-straight cath Urethral indwelling: No Insertion date: 09/11/23 Insertion time: 12:38
[2023-09-12] MEDS: VALPROIC ACID 250 MG/5 ML G-TUBE (09:58)
--- NOTE | 2023-09-12 10:48 | CM.NOTE ---
Rounds made with alexandria Ta for discharge to home today on oral antibiotics. Discussed plan of care with pt's father at bedside.
--- NOTE | 2023-09-14 14:34 | CM.DCFOLLOWU ---
Person spoke with: Mr. Wilson (father to Nellie) How are you feeling? No problems except the normal ones from antibiotics. How is your pain? No Did you understand your discharge instructions? Father is very knowledgeable and understands. Do you have any questions about your discharge instructions? No Were you given any prescriptions at discharge? Yes Were you able to get your prescriptions filled? Yes Do you understand how to take your medications as ordered? Yes Do you have any questions about your follow up appointment and do you plan to keep your follow up appointment? Yes Is there anything else that you would like to discuss? No questions. Thank you. Questions/Comments/Concerns/Other:
== END 2023-09-12 11:05 | disposition home or self-care (01) ==
LOC: ER 14:29 → MS 09-12 07:15
PROVIDERS: Nurse Practitioner; Admitting Provider Internal Medicine; Emergency Provider Emergency Medicine; PCP Nurse Practitioner; Visit Provider Internal Medicine
DX: N39.0 Urinary tract infection, site not specified (principal); G40.909 Epilepsy, unspecified, not intractable, without status epilepticus; R79.89 Other specified abnormal findings of blood chemistry; G80.9 Cerebral palsy, unspecified; K59.00 Constipation, unspecified; E43 Unspecified severe protein-calorie malnutrition; Z68.1 Body mass index [BMI] 19.9 or less, adult; F72 Severe intellectual disabilities; R11.10 Vomiting, unspecified; D72.825 Bandemia; R09.81 Nasal congestion; Z20.822 Contact with and (suspected) exposure to COVID-19; Z79.899 Other long term (current) drug therapy; Z99.3 Dependence on wheelchair; Z93.1 Gastrostomy status; B96.89 Other specified bacterial agents as the cause of diseases classified elsewhere
CPT/HCPCS: 36415; 71045; 74022; 74176; 80053; 80164; 81001; 82948; 83605; 84484; 85007; 85025; 85027; 87040; 87070; 87086; 87150; 87186; 87420; 87804; 87811; 87880; 93005; 94761; 96365; 96367; 96372; 99284; 99285; G0378

== ENCOUNTER 2023-12-18 16:22 | Emergency (ER) | payer MEDICAID, SELFPAY ==
[2023-12-18 16:29] VITALS: BP 133/86; PULSE 110; TEMP 36.7; O2SAT 100; BMI 14.3
--- OUTSIDE RECORDS SUMMARY | 2023-12-18 16:48 | XMS_ITS | CCD ---
Author Organization [facility] CliniSywy Care Team Providers Care Firebreak Cutter Name Role Phone PAY ., DR ZENG Attending Unavailable MCQUEEN ., DR ADAM Emerson Primary Care Unavailable PAY ., DR ZENG Admitting Unavailable PAY ., DR ZENG Consulting Unavailable SHAKIR MARTINEZ Consulting Unavailable VALORIE, DR ADAMS Attending Unavailable VALORIE, DR ADAMS Admitting Unavailable CHARISSE ., DR ADAM Emerson Primary Care Unavailable VALORIE, DR ADAMS Consulting Unavailable Bolaños UTILITY ASSEMBLER-FINANCE INTERN, Ree J Primary Care Provid er JAYA REE J Primary Care Unavailable CHELSI HOUSE Attending Unavailable CHELSI HOUSE Attending Unavailable CHELSI HOUSE Referring Unavailable BOLAÑOS, REE J Primary Care Unavailable Bolaños UTILITY ASSEMBLER-FINANCE INTERN, Ree J Primary Care Provid er REE [...] Sulfonamides (Antibiotic) Drug allergy (disorder) 7 [facility] Repository (6 sources) Sulfonamides (Antibiotic); Translations: [SULFA (SULFONAMIDE ANTIBIOTICS)] Propensity to adverse reactions to drug 6 [place] Work Phone: Medications Current Medications Medication Drug [...] (KEPPRA) 100 mg/mL solution Indications: Seizure disorder ([facility]) Administer 5 mL (500 mg [...] 3 Episodic Other aftercare (1 source) Other assistant terminal manager (current) drug therapy; Translations: [OTH MEDICAL CHEMIST CURRENT DRUG THERAPY] Onset: 3 Episodic Other [...] 05-31-2023 Iron [Mass/Vol] 66 ug/dL Normal 50-170 [facility] Comment on above: Performed By: #### F EPR, LIVR #### [facility] ([id number]) [address] [place] [address] IRON BINDING 417 ug/dL Normal 250-425 [facility] Comment on above: Performed By: #### F EPR, LIVR #### [facility] ([id number]) [address], [address] [place] [address] IRON SATURATION 16 % SATURATION Normal 15-50 [facility] Comment on above: Performed By: #### F EPR, LIVR #### [facility] ([id number]) [address], [address] [place] [address] LIVER PANELon 05-31-2023 Albumin [Mass/Vol] 4.3 g/dL Normal 3.2-5.3 [facility] Comment on above: Performed By: #### F EPR, LIVR #### [facility] ([id number]) [address], [address] [place] [address] ALP [Catalytic activity/Vol] 104 U/L Normal 39-130 [facility] Comment on above: Performed By: #### F EPR, LIVR #### [facility] ([id number]) [address], [address] [place] [address] ALT [Catalytic activity/Vol] 79 U/L High 0-31 [facility] Comment on above: Performed By: #### F EPR, LIVR #### [facility] ([id number]) [address], [address] [place] [address] AST [Catalytic activity/Vol] 59 U/L High 0-41 [facility] Comment on above: Performed By: #### F EPR, LIVR #### [facility] ([id number]) [address], [address] [place] [address] Bilirubin [Mass/Vol] 0.3 mg/dL Normal 0.3-1.2 [facility] Comment on above: Performed By: #### F EPR, LIVR #### [facility] ([id number]) [address], [address] [place] [address] Bilirubin.direct [Mass/Vol] 0.1 mg/dL Normal 0.0-0.4 [facility] Comment on above: Performed By: #### F EPR, LIVR #### [facility] ([id number]) [address], [address] [place] [address] Protein [Mass/Vol] 8.0 g/dL Normal 6.0-8.0 [facility] Comment on above: Performed By: #### F EPR, LIVR #### [facility] ([id number]) [address], [address] [place] [address] XR ABDOMEN AP 1 VWon 024 XR [...] Ayala MD on 05/15/2023 5:02 PM Normal [facility] Surgical Pathologyon 023 Surgical Pathology Normal [facility] Comment on above: Result Comment: [facility] [address] [place] [address] Surgical Pathology Consultation Patient Name:JT WILSON:1990 (Age: 33)Gender:FTaken:03/31/2023Reported:04/08/2023hysician(s):Carl Rogers M.D. ( )Copy To: Rec. #:[id number]: #[id number] Final Pathologic Diagnosis Gallbladder, cholecystectomy: Active chronic cholecystitis and cholelithiasis with focal mucosal erosion. Two benign periductal lymph nodes present. Report Electronically Signed Out ao/04/08/2023kathryn Casey MD Interpretation performed at [facility], [address] [place] [address], License number: [id number]. Clinical History Cholelithiasis. Gross Description Received in [...] gallbladder wall is 0.2-0.3 cm in thickness. [facility] Specialist cross-sections are submitted within cassette A. (2, ss, [id number],m6) DM. dm/03/31/2023SSI Specimen(s) Received Gallbladder Fee Codes(s): 1; 18619 LEVETIRACETAM, SERUM OR PLAS MAon 07-12-2022 Levetiracetam, S 28.2 ug/mL Normal 10.0-40.0 [facility] Comment on above: Performed By: #### K EPPRA #### [facility] [address] [place] [address] [address] Gurmeet Ivan CBC AUTO DIFFon 07-08-2022 BASO # 0.0 103/ul Normal 0.0-0.1 [facility] Comment on above: Performed By: #### C BC #### [facility] [address] [place] [address] Dr. Gurmeet Ivan Basophils/100 WBC (Bld) 0.4 % Normal 0.2-2.0 [facility] Comment on above: Performed By: #### C BC #### [facility] [address] [place] [address] Dr. Gurmeet Ivan EO # 0.1 103/ul Normal 0.0-0.7 [facility] Comment on above: Performed By: #### C BC #### [facility] [address] [place] [address] Dr. Gurmeet Ivan Eosinophils/100 WBC (Bld) 1.0 % Normal 0.9-7.0 [facility] Comment on above: Performed By: #### C BC #### [facility] [address] [place] [address] Dr. Gurmeet Ivan Erythrocyte distribution width (RBC) [Ratio] 13.6 % Normal 11.0-15.0 [facility] Comment on above: Performed By: #### C BC #### [facility] [address] [place] [address] Dr. Gurmeet Ivan Hematocrit (Bld) [Volume fraction] 38.9 % Normal 36.0-48.0 [facility] Comment on above: Performed By: #### C BC #### [facility] [address] [place] [address] Dr. Gurmeet Ivan Hemoglobin (Bld) [Mass/Vol] 13.0 g/dL Normal 12.0-16.0 [facility] Comment on above: Performed By: #### C BC #### [facility] [address] [place] [address] Dr. Gurmeet Ivan IG # 0.02 10e3/ul Normal 0.00-0.03 [facility] Comment on above: Performed By: #### C BC #### [facility] [address] [place] [address] Dr. Gurmeet Ivan IG % 0.3 % Normal 0.0-0.5 [facility] Comment on above: Performed By: #### C BC #### [facility] [address] [place] [address] Dr. Gurmeet Ivan LYMPH # 1.5 103/ul Normal 1.2-3.8 [facility] Comment on above: Performed By: #### C BC #### [facility] [address] [place] [address] Dr. Gurmeet Ivan Lymphocytes/100 WBC (Bld) 22.0 % Normal 20.5-60.0 [facility] Comment on above: Performed By: #### C BC #### [facility] [address] [place] [address] Dr. Gurmeet Ivan MANUAL DIFF REQ NO Normal [facility] Comment on above: Performed By: #### C BC #### [facility] [address] [place] [address] Dr. Gurmeet Ivan MCH (RBC) [Entitic mass] 29.3 pg Normal 26.7-34.0 [facility] Comment on above: Performed By: #### C BC #### [facility] [address] [place] [address] Dr. Gurmeet Ivan MCHC (RBC) [Mass/Vol] 33.4 g/dL Normal 29.9-35.2 [facility] Comment on above: Performed By: #### C BC #### [facility] [address] [place] [address] Dr. Gurmeet Ivan MCV (RBC) [Entitic vol] 87.8 fL Normal 81.0-99.0 [facility] Comment on above: Performed By: #### C BC #### [facility] [address] [place] [address] Dr. Gurmeet Ivan MONO # 0.5 103/ul Normal 0.3-0.8 [facility] Comment on above: Performed By: #### C BC #### [facility] [address] [place] [address] Dr. Gurmeet Ivan Monocytes/100 WBC (Bld) 6.6 % Normal 1.7-12.0 [facility] Comment on above: Performed By: #### C BC #### [facility] [address] [place] [address] Dr. Gurmeet Ivan NEUT # 4.8 103/ul Normal 1.4-6.5 [facility] Comment on above: Performed By: #### C BC #### [facility] [address] [place] [address] Dr. Gurmeet Ivan Neutrophils/100 WBC (Bld) 69.7 % Normal 43.0-75.0 [facility] Comment on above: Performed By: #### C BC #### [facility] [address] [place] [address] Dr. Gurmeet Ivan Platelet mean volume (Bld) [Entitic vol] 11.5 fL Normal 9.5-13.5 [facility] Comment on above: Performed By: #### C BC #### [facility] [address] [place] [address] Dr. Gurmeet Ivan PLT 229 103/ul Normal 150-450 [facility] Comment on above: Performed By: #### C BC #### [facility] [address] [place] [address] Dr. Gurmeet Ivan RBC 4.43 106/ul Normal 4.20-5.40 [facility] Comment on above: Performed By: #### C BC #### [facility] [address] [place] [address] Dr. Gurmeet Ivan WBC 6.9 103/ul Normal 4.0-11.0 [facility] Comment on above: Performed By: #### C BC #### [facility] [address] [place] [address] Dr. Gurmeet Ivan DEPAKENE/ VALPROIC ACIDon DEPAKENE 59.7 ug/ml Normal 50.0-100.0 [facility] Comment on above: Performed By: #### B MP, LIVER, VALP #### [facility] [address] [place] [address] Dr. Gurmeet Ivan LIVER PROFILEon 07-08-2022 Albumin [Mass/Vol] 3.7 g/dL Normal 3.4-5.0 [facility] Comment on above: Performed By: #### B MP, LIVER, VALP #### [facility] [address] [address] [address] Gurmeet Ivan Albumin/Globulin [Mass ratio] 0.8 {ratio} Normal [facility] Comment on above: Performed By: #### B MP, LIVER, VALP #### [facility] [address] [address] [address] Gurmeet Iavn ALP [Catalytic activity/Vol] 132 U/L Critically high 46-116 [facility] Comment on above: Performed By: #### B MP, LIVER, VALP #### [facility] [address] [address] [address] Gurmeet Ivan ALT [Catalytic activity/Vol] 51 U/L Normal 14-59 [facility] Comment on above: Performed By: #### B MP, LIVER, VALP #### [facility] [address] [place] [address] Dr. Gurmeet Ivan AST [Catalytic activity/Vol] 34 U/L Normal 15-37 [facility] Comment on above: Performed By: #### B MP, LIVER, VALP #### [facility] [address] [place] [address] Dr. Gurmeet Ivan BILI, CONJUGATED 0.1 mg/dL Normal 0.0-0.2 [facility] Comment on above: Performed By: #### B MP, LIVER, VALP #### [facility] [address] [place] [address] Dr. Gurmeet Ivan Bilirubin [Mass/Vol] 0.2 mg/dL Normal 0.2-1.0 [facility] Comment on above: Performed By: #### B MP, LIVER, VALP #### [facility] [address] [place] [address] Dr. Gurmeet Ivan Globulin (S) [Mass/Vol] 4.8 g/dL Normal [facility] Comment on above: Performed By: #### B MP, LIVER, VALP #### [facility] [address] [address] [address] Gurmeet Ivan Protein [Mass/Vol] 8.5 g/dL Critically high 6.4-8.2 [facility] Comment on above: Performed By: #### B MP, LIVER, VALP #### [facility] [address] [place] [address] Dr. Gurmeet Ivan PROF CHEM 8 (BAS METB)on Anion gap [Moles/Vol] 10.8 mmol/L Normal [facility] Comment on above: Performed By: #### B MP, LIVER, VALP #### [facility] [address] [place] [address] Dr. Gurmeet Ivan Calcium [Mass/Vol] 9.3 mg/dL Normal 8.5-10.1 [facility] Comment on above: Performed By: #### B MP, LIVER, VALP #### [facility] [address] [place] [address] Dr. Gurmeet Ivan Chloride [Moles/Vol] 101 mmol/L Normal 98-107 [facility] Comment on above: Performed By: #### B MP, LIVER, VALP #### [facility] [address] [place] [address] Dr. Gurmeet Ivan CO2 [Moles/Vol] 30.6 mmol/L Normal 21.0-32.0 [facility] Comment on above: Performed By: #### B MP, LIVER, VALP #### [facility] [address] [place] [address] Dr. Gurmeet Ivan Creatinine [Mass/Vol] 0.37 mg/dL Critically low 0.55-1.02 [facility] Comment on above: Performed By: #### B MP, LIVER, VALP #### [facility] [address] [place] [address] Dr. Gurmeet Ivan EGFR-AF [place] 247 mL/min/1.73m2 Normal >=60 [facility] Comment on above: Performed By: #### B MP, LIVER, VALP #### [facility] [address] [place] [address] Dr. Gurmeet Ivan EGFR-NON AF [place] 204 mL/min/1.73m2 Normal >=60 [facility] Comment on above: Performed By: #### B MP, LIVER, VALP #### [facility] [address] [address] [address] Gurmeet Ivan Glucose [Mass/Vol] 88 mg/dL Normal 74-106 [facility] Comment on above: Performed By: #### B MP, LIVER, VALP #### [facility] [address] [place] [address] Dr. Gurmeet Ivan Potassium [Moles/Vol] 4.4 mmol/L Normal 3.5-5.1 [facility] Comment on above: Performed By: #### B MP, LIVER, VALP #### [facility] [address] [address] [address] Gurmeet Ivan Sodium [Moles/Vol] 138 mmol/L Normal 136-145 [facility] Comment on above: Performed By: #### B MP, LIVER, VALP #### [facility] [address] [place] [address] Dr. Gurmeet Ivan Urea nitrogen [Mass/Vol] 17.0 mg/dL Normal 7.0-18.0 [facility] Comment on above: Performed By: #### B MP, LIVER, VALP #### [facility] [address] [address] [address] Gurmeet Ivan Urea nitrogen/Creatinin e [Mass ratio] 45.9 mg/mg Normal [facility] Comment on above: Performed By: #### B MP, LIVER, VALP #### [facility] [address] [place] [address] Dr. Gurmeet Ivan Covid-19 PCR ([facility])on 05-12 SARS-CoV-2 (COVID-19) RNA AUREA+probe Ql (Unsp spec) Detected Abnormal NOT DETECTED [facility] Comment on above: Result Comment: This test is not yet approved or cleared by the [place] FDA. When there are no FDA-approved or cleared tests available, and other criteria are met, FDA can make tests available under an emergency access mechanism called an Emergency Use Authorization (EUA). The EUA for this test is supported by the Educational Program Director of Health and Human Service's declaration that [...] used). Performed By: #### C VDTB #### [facility] [address] [place] [address] Dr. Gurmeet Ivan INFLUENZA A AND B [facility] 05-28 [facility] SEE BELOW Normal [facility] Comment on above: Result Comment: Nega tive for Flu A protein angiten. Infection due to Flu A cannot be ruled out. Flu A angiten in the sample may be below the detection limit of the test. Performed By: #### I NFLUAB #### [facility] [address] [place] [address] Dr. Gurmeet Ivan [facility] SEE BEL[facility] Normal [facility] Comment on above: Result Comment: Nega tive for Flu B protein antigen. Infection due to Flu B cannot be ruled out. Flu B antigen in the sample may be below the detection limit of the test. Performed By: #### I NFLUAB #### [facility] [address] [place] [address] Dr. Gurmeet Ivan INFLUENZA A AG Negative Normal NEGATIVE SEE COMMENT [facility] Comment on above: Performed By: #### I NFLUAB #### [facility] [address] [place] [address] Dr. Gurmeet Ivan INFLUENZA B AG Negative Normal NEGATIVE SEE COMMENT [facility] Comment on above: Performed By: #### I NFLUAB #### [facility] [address] [place] [address] Dr. Gurmeet Ivan XR CHEST 2 Von [...] by: SHAKIR MARTINEZ Date: 2022-05-28 10:53 Normal [facility] Vital Signs Date Time Vital Sign Value Performing Clinician Facility 05-31-2023 07:07-0500 Body height 154.9 cm Ree Bolaños UTILITY ASSEMBLER-FINANCE INTERN Work Phone: [facility] [employer] [facility] 05-31-2023 07:07-0500 Body temperature 97.39 [degF] Ree Bolaños UTILITY ASSEMBLER-FINANCE INTERN Work Phone: [facility] [employer] [facility] 05-31-2023 07:07-0500 Diastolic blood pressure 68 mm[Hg] Ree De Leonillo UTILITY ASSEMBLER-FINANCE INTERN Work Phone: [facility] [employer] [facility] 05-31-2023 07:07-0500 Heart rate 76 /min Ree De Leonillo UTILITY ASSEMBLER-FINANCE INTERN Work Phone: [facility] [employer] [facility] 05-31-2023 07:07-0500 SaO2% (BldA) [Mass fraction] 97 % Ree Bolaños APRN-FINANCE INTERN [facility] 05-31-2023 07:07-0500 Systolic blood pressure 100 mm[Hg] Ree Bolaños UTILITY ASSEMBLER-FINANCE INTERN [facility] 04-14-2023 14:04-0500 Body height 154.9 cm [facility] [facility] 04-14-2023 14:04-0500 Body mass index (BMI) [Ratio] 12.83 kg/m2 [employer] [place] [facility] 04-14-2023 14:04-0500 Body weight 30.8 kg [employer] [facility] Encounter Date Encounter Type Care Provider Facility Start: 08-16-2023 End: 08-16-2023 ambulatory BRYAN EUGENE Not Available Start: 05-31-2023 End: 06-01-2023 ambulatory [facility] Start: 05-31-2023 End: 05-31-2023 ambulatory [facility] Start: 05-31-2023 End: 05-31-2023 Office outpatient visit 25 minutes Ree Bolaños UTILITY ASSEMBLER-FINANCE INTERN [facility] Comment on above: Benign essential HTN (Primary Dx); Other iron deficiency anemia; Elevated liver enzymes; Salivation excessive; Seizure disorder ([facility]) Start: 05-21-2023 Refill Ree J [facility] UTILITY ASSEMBLER-FINANCE INTERN Work Phone: [facility] Comment on above: Benign essential HTN Start: 05-15-2023 End: 05-16-2023 Emergency department patient visit [facility] Start: 04-14-2023 End: 04-14-2023 ambulatory [facility] Start: 04-14-2023 End: 04-14-2023 Office outpatient visit 15 minutes [facility] Work Phone: [facility] Comment on above: Calculus of gallblad birgit without cholecystitis without obstruction (Primary Dx) Start: 03-31-2023 End: 03-31-2023 [facility] Start: 03-31-2023 End: 03-31-2023 Evaluation and management of inpatient [facility] Start: 07-08-2022 End: 07-09-[address] BRYAN EUGENE Facility:[facility] Start: 05-28-2022 End: 05-28-[address] KARRI NUNN . Facility:[facility] Procedures Date Procedure Procedure Detail Performing Clinician Start: 05-31-2023 Adult depression screening assessment Ree De Leonillo UTILITY ASSEMBLER-FINANCE INTERN Work Phone: Start: 02-08-2023 Adult depression screening assessment [facility] Work Phone: Plan of Treatment Date Care Activity Detail Author Start: 05-31-2024 Depression Screening Depression Scre [facility] Start: 05-31-2024 Tobacco Screening Tobacco Screening [facility] Start: 05-15-2024 Adult BMI Screening Adult BMI Screen ing [facility] Start: 05-15-2024 Tobacco Screening Tobacco Screening [facility] Start: 03-31-2024 Adult BMI Screening Adult BMI Screen ing [facility] Start: 03-31-2024 Tobacco Screening Tobacco Screening [facility] Start: 02-09-2024 Depression Screening Depression Scre ening [facility] Start: 11-23-2023 Adult BMI Follow Up Plan Adult BMI Follow Up Plan [facility] Start: 11-01-2023 End: 11-01-2023 Patient encounter procedure 11/01/2023 7:00 AM EDT Office Visit [facility] [address] [place] [address] Ree Bolaños, UTILITY ASSEMBLER-FINANCE INTERN [address] [place] [address] [facility] Start: 05-31-2023 End: 05-31-2023 Patient encounter procedure 05/31/2023 7:00 AM EST Office Visit [facility] [address] [place] [address] Ree Bolaños, UTILITY ASSEMBLER-FINANCE INTERN [address] [place] [address] [facility] Start: 12-10-2022 Influenza vaccination Influenza Vacc ine [facility] Start: 2012 Screening for malign ant neoplasm of cervix Pap Smear [facility] Start: 2010 DTaP,Tdap and Td Vaccines (1 - Tdap) DTaP,Tdap and Td Vaccines (1 - Tdap) [facility] End: 05-31-2024 Hepatic function 2000 panel - Serum or Plasma Hepatic function panel Lab Routine Elevated liver enzymes 1 Occurrences starting 05/31/2023 until 05/31/2024 [facility] Comment on above: 1 Occurrences starti ng 05/31/2023 until 05/31/2024 End: 05-31-2024 Iron and TIBC Iron and TIBC Lab Routine Other iron deficiency anemia 1 Occurrences starting 05/31/2023 until 05/31/2024 [facility] Work Phone: Comment on above: 1 Occurrences starti ng 05/31/2023 until 05/31/2024 Payers Date Payer Category Payer Medicaid [id number] 2022 Medicaid [facility] [facility] [facility] [id number] 2022-Present [address] [place] [address] [id number] 1990 Unknown [id number] 1990 Unknown [id number] 2.16.840.1.359526.3.579.2.593 1990 Unknown [id number] 2.16.840.1.487334.3.579.2.1286 1990 Unknown [id number] 2.16.840.1.826862.3.579.2.1286 1990 Unknown [id number] 2.16.840.1.703772.3.579.2.1286 1990 Unknown [id number] 2.16.840.1.230893.3.579.2.1286 1991 Unknown [id number] 2.16.840.1.082447.3.579.2.1286 1991 Unknown [id number] 2.16.840.1.886464.3.579.2.1286 1991 Unknown [id number] 2.16.840.1.702023.3.579.2.1286 1991 Unknown [id number] 2.16.840.1.331538.3.579.2.1286 1990 Unknown [id number] 2.16.840.1.062520.3.579.2.1259 Social History Date Type Detail Facility Start: 11-22-2022 [facility] Start: 11-22-2022 Tobacco use and exposure Smokeless tobacco non-user [facility] Start: 04-14-2023 End: 05-31-2023 Alcohol intake Current non-drinker of alcohol (finding) [facility] Start: 05-22-2020 End: 04-14-2023 History of Social function [facility] Start: 05-22-2020 End: 04-14-2023 Tobacco use panel [facility] How hard is it for y ou to pay for the very basics like food, housing, medical care, and heating Not hard at all [facility] Start: 1990 Sex Assigned At Female [facility] Start: 10-29-2022 Gender identity Identifies as female gender (finding) [facility] Start: 10-29-2022 Sexual orientation Heterosexual (fin ding) [facility] Goals Date Patient Goal Desired Activity /State Personal health goal Comment on above: Formatting of this n ote might be different from the original. Evaluation of progress towards goal: Current discharge plan is home with 24 hour caregiver support from parents. - Cydney Jacobsen RN 10/28/22 2:45 PM History of Present illness Narrative 05-31-2023 Ree Bolaños APRN-FINANCE INTERN - 05/31/2023 7:00 AM EST Note Date & Type Note Facility 05-31-2023 History of Present illness Narrative Images from the original note were not included. [address] [place] [facility] [id number] SUBJECTIVE: Patient ID: Jt Wilson is a [...] Performed by Jordin Zavala MD at [facility] LAPAROSCOPIC CHOLECYSTECTOMY N/A 03/31/2023 Performed by Carl Rogers MD at [facility] MYRINGOTOMY W/ TUBES PLACEMENT PEG TUBE REPLACEMENT; 20-22FR N/A 04/12/2016 Performed by Jd Small DO at [facility] 10/29/2022 Past Medical History: Diagnosis Date ABBE (acute kidney injury) ([facility]) 10/29/2022 Cerebral palsy ([facility]) Difficult intravenous access HL (hearing loss) moderate loss Pneumonia 10/28/2022 Salivation excessive 12/01/2016 Seizures ([facility]) Sinusitis, chronic Upper respiratory infection There is [...] every morning and BEFORE BEDTIME Seizure disorder ([facility]) - levETIRAcetam (KEPPRA) 100 mg/mL solution; Administer [...] Zapien 05/31/23 0810 documented in this encounter [facility] History of Present illness Narrative 04-14-2023 [...] addressed 3) follow-up p.r.n. Kimberly Jensen PA-C [facility] General Surgery [address] [place] [address] [facility] [place] 04/14/23 1415 documented in this encounter [facility] Evaluation note Note Date & Type Note Facility Evaluation note Diagnosis Calculus of gallbladder without cholecystitis without obstruction- Primary documented in this encounter [facility] Evaluation note Note Date & Type Note Facility Evaluation note Diagnosis Benign essential HTN [facility] Evaluation note Note Date & Type Note Facility Evaluation note Diagnosis Benign essential HTN- Primary Other iron deficiency anemia Elevated liver enzymes Other nonspecific abnormal serum enzyme levels Salivation excessive Disturbance of salivary secretion Seizure disorder (CMS-HCC) Unspecified epilepsy without mention of intractable epilepsy documented in this encounter [facility] Instructions Note Date & Type Note Facility Instructions Not on filedocumented in this en counter [facility] Instructions Note Date & Type Note Facility Instructions Not on filedocumented in this en counter [facility] Instructions Attachments Note Date & Type Note Facility Instructions The following attachments cannot be sent through Care Everywhere.Cerebral palsy (Mosotho)Enteral Feeding (Mosotho)documented in this encounter [facility] Summary Purpose Family History No Family [...] and content) DATE CREATED AUTHOR 07/17/2022 [facility] DATE CREATED AUTHOR AUTHOR'S ORGANIZ ATION 05/15/2023 [facility] DATE CREATED AUTHOR AUTHOR'S ORGANIZ ATION 06/01/2023 [facility] DATE CREATED AUTHOR AUTHOR'S ORGANIZ ATION 06/08/2023 [facility] DATE CREATED AUTHOR AUTHOR'S ORGANIZ ATION 08/18/2023 [facility] EPIC Reason for Visit (unrecogniz ed section and content) Reason Comments Post-op 1ST PO GB JOSE 03/12 1 Reason Comments Med Refill Reason Comments Hypertension Care Teams (unrecognized sec tion and content) Firebreak C[employer] Relationship Specialty Start Date End Date Ree Bolaños, UTILITY ASSEMBLER-FINANCE INTERN [address] [id number] PCP - General Family Medicine 08/17/22 Firebreak Cutter Relationship Specialty Start Date End Date Ree Bolaños APRN-[facility] [address] [place] [address] PCP - [facility] 05/15/23 Firebreak Cutter Relationship Specialty Start Date End Date Ree Bolaños APRN-[facility] [address] [place] [address] PCP - [facility] 05/15/23 [...] BE BASED ON THE PRIMARY CLINICAL RECORDS. [facility]. provides no warranty or guarantee of the accuracy or completeness of information in this document.
--- NOTE | 2023-12-18 16:55 | ECG_ITS ---
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
--- NOTE | 2023-12-18 16:58 | CT_ITS ---
[address] [address] Patient Name: JT BECERRIL MRN: [id number] date: 1990 Sex: F Assigned Patient Location: ER Current Patient Location: .MAIN Accession/Order Number: [id number] Exam Date: 12/18/2023 17:28 Report Date: 12/18/2023 19:18 At the request of: JUANIS ALCOCER Procedure: CT abdomen pelvis wo con EXAM: CT abdomen pelvis wo con HISTORY: peg tube removed ,sbo COMPARISON: 09/11/2023 TECHNIQUE: CT of the abdomen and pelvis without intravenous contrast. Dose reduction techniques were achieved by using automated exposure control and/or adjustment of mA and/or kV according to patient size and/or use of iterative reconstruction technique. FINDINGS: Limited evaluation of the viscera/organs and vasculature without intravenous contrast. TUBES AND IMPLANTS: T11-L4 to posterior rods and pedicle screws. LOWER CHEST: Mild bronchial wall thickening seen in the left lower lobe with patchy airspace disease. ABDOMEN and PELVIS ABDOMINAL WALL AND SOFT TISSUES: Unremarkable. BONES: Dextroconvex scoliosis. Postsurgical changes of T11-L4 posterior fusion. ARTERIES: Incompletely evaluated. No aortoiliac aneurysm VEINS: Incompletely evaluated. LYMPH NODES: Unremarkable. PERITONEUM/ RETROPERITONEUM: Unremarkable. BOWEL: Large amount of stool seen within the rectal vault APPENDIX: Not identified. LIVER: Grossly unremarkable GALLBLADDER: Surgically absent BILE DUCTS: Not dilated SPLEEN: Unremarkable. PANCREAS: Grossly unremarkable ADRENALS: Grossly unremarkable KIDNEYS/ URETERS: Nonobstructing right renal stones measuring up to 1.2 centimeters. No left stones or hydronephrosis. REPRODUCTIVE ORGANS: Unremarkable URINARY BLADDER: Unremarkable. CT/CT abdomen pelvis wo con IMPRESSION: 1. Examination is limited due to metallic streak artifact from spinal hardware. 2. No evidence of small bowel obstruction. 3. Nonobstructing right renal stones measuring up to 1.2 centimeters. 4. Large amount of rectal vault stool, correlate for impaction. 5. Mild bronchial wall thickening seen in the left lower lobe with patchy airspace disease may represent bronchiolitis or pneumonia. Electronically authenticated by: MARVIN ELISE Date: 12/18/2023 19:18
--- NOTE | 2023-12-18 17:10 | ED_ITS ---
HPI - Abdominal Pain General Chief Complaint: Abdominal Pain Stated Complaint: FEEDING TUBE ISSUE, LETHARGIC Time Seen by Provider: 12/18/23 16:25 Source: patient Mode of arrival: Wheelchair Limitations: language barrier History of Present Illness HPI narrative: The patient history of cerebral palsy nonverbal according to her father who is the caregiver, this morning they were trying to feed her through the PEG tube but there was resistance, by the time the patient got to the ER the PEG tube was already out of her stomach, she also was not acting herself in the last few hours, there is no fever or chills that recorded, and the patient is dependent on the PEG tube for feeding No vomiting no cough The father mentioned that the last feeding was yesterday at 9 PM and it was at normal The patient PEG tube was placed in the [facility] Related Data Home Medications ?Medication ?Instructions ?Recorded ?Confirmed levetiracetam 100 mg/mL oral 500 mg feeding tube Q12H 10/25/22 09/11/23 solution (Keppra) valproic acid (as sodium salt) 250 250 mg feeding tube BID 10/26/22 09/11/23 mg/5 mL (5 mL) oral solution glycopyrrolate 2 mg tablet 2 mg PO BID 09/11/23 09/11/23 (Robinul Forte) polyethylene glycol 3350 17 17 g PO BID PRN constipation 09/12/23 09/12/23 gram/dose oral powder (Miralax) Previous Rx's ?Medication ?Instructions ?Recorded cefdinir 250 mg/5 mL oral 300 mg (6 mL) feeding tube BID 7 09/12/23 suspension days #84 mL Allergies Allergy/AdvReac Type Severity Reaction Status Date / Time Sulfa (Sulfonamide Allergy Intermediate Verified 10/25/22 12:31 Antibiotics) Review of Systems ROS Narrative The review of system obtained from the father Status of ROS 10 or more systems reviewed and unremark able except as noted in history and below [facility] Medical History (Updated 12/18/23 @ 18:50 by Yulia Olsen MD) Elevated LFTs ?R79.89 - Other specified abnormal findings of blood chemistry (ICD-10) Constipation ?K59.00 - Constipation, unspecified (ICD-10) Cerebral palsy ?G80.9 - Cerebral palsy, unspecified (ICD-10) Visual impairment ?H54.7 - Unspecified visual loss (ICD-10) Hearing impairment ?H91.90 - Unspecified hearing loss, unspecified ear (ICD-10) History of gastrostomy tube placement Scoliosis ?M41.9 - Scoliosis, unspecified (ICD-10) Hx of seizure disorder ?Z86.69 - Personal history of other diseases of the nervous system and sense organs (ICD-10) Severe intellectual disability ?F72 - Severe intellectual disabilities (ICD-10) Surgical History History of back surgery ?Z98.890 - Other specified postprocedural states (ICD-10) Family History (Updated 09/11/23 @ 16:06 by Norma Rivera RN) Grandfather Family history of cancer Family history of hypertension Family history of stroke Father Family history of hypertension Aunt Family history of stroke Social History (Updated 09/11/23 @ 16:06 by Norma Rivera RN) Within the past year, how often did you have a drink containing alcohol: never Score interpretation: A score less than 3 is consistent with normal alcohol consumption. Smoking status: Never smoker Exam Narrative Exam Narrative: Nurses notes and vital signs reviewed and patient is not hypoxic. General: Well-appearing and in no apparent distress. Skin: Warm, dry, no pallor noted. No rash. Head: Normocephalic, atraumatic. Neck: Supple, non-tender. Eye: Pupils are equal, round and EOMI. No scleral icterus. Lungs are clear to auscultation, no wheezing, rales or rhonchi Chest Wall: no tenderness GI: The abdomen is distended there is a PEG tube entrance wound in the epigastric area that does not show any signs of infection but the abdomen is very distended and there is distress when the patient abdomen is palpated Neurological: The patient is awake nonverbal Constitutional Vital Signs, click to edit/add: Last Vital Signs Temp 98.0 F 12/18/23 16:29 Pulse 110 H 12/18/23 16:29 Resp 23 H 12/18/23 18:00 BP 133/86 12/18/23 16:29 Pulse Ox 97 12/18/23 17:20 Course Vital Signs Vital signs: Vital Signs Temperature 98.0 F 12/18/23 16:29 Pulse Rate 110 H 12/18/23 16:29 Respiratory Rate 20 12/18/23 16:29 Blood Pressure 133/86 12/18/23 16:29 Pulse Oximetry 100 12/18/23 16:29 Temperature 98.0 F 12/18/23 16:29 Pulse Rate 110 H 12/18/23 16:29 Respiratory Rate 23 H 12/18/23 18:00 Blood Pressure 133/86 12/18/23 16:29 Pulse Oximetry 97 12/18/23 17:20 MDM - Abdominal Pain MDM Narrative Medical decision making narrative: The patient CAT scan is pending but there is a possible fecal impaction I did a rectal exam and the patient have some soft stools she might benefit from an enema in case there is no other pathology and the CAT scan The dislodged gastrostomy tube was replaced with another 20 Croatian and a study with KUB will be done after the CAT scan is obtained The patient CBC shows mild leukocytosis of 12 chemistry otherwise negative Patient care was transferred to Dr. Kaplan awaiting the CAT scan results and follow-up on the KUB for gastrostomy tube placement Lab Data Labs: Lab Results 12/18/23 12/18/23 Range/Units 17:09 17:16 WBC 12.0 H (4.0-11.0) 10^3/uL RBC 3.92 L (4.20-5.40) 10^6/uL Hgb 12.0 (12.0-16.0) g/dL Hct 36.0 (36.0-48.0) % MCV 91.8 (81.0-99.0) fL MCH 30.6 (26.7-34.0) pg MCHC 33.3 (29.9-35.2) g/dL RDW 13.0 (11.0-15.0) % Plt Count 161 (150-450) 10^3/uL MPV 12.2 (9.5-13.5) fL Neut % (Auto) 83.5 H (43.0-75.0) % Lymph % (Auto) 6.3 L (20.5-60.0) % [place] % (Auto) 9.8 (1.7-12.0) % Eos % (Auto) 0.0 L (0.9-7.0) % Baso % (Auto) 0.1 L (0.2-2.0) % Neut # (Auto) 10.0 H (1.4-6.5) 10^3/uL Lymph # (Auto) 0.8 L (1.2-3.8) 10^3/uL [place] # (Auto) 1.2 H (0.3-0.8) 10^3/uL Eos # (Auto) 0.0 (0.0-0.7) 10^3/uL Baso # (Auto) 0.0 (0.0-0.1) 10^3/uL Abs Immat Gran (auto) 0.03 (0.00-0.03) 10^3/uL Imm/Tot Granulo (auto) 0.3 (0.0-0.5) % Sodium 132 L (136-145) mmol/L Potassium 4.2 (3.5-5.1) mmol/L Chloride 98 (98-107) mmol/L Carbon Dioxide 27.8 (21.0-32.0) mmol/L Anion Gap 10.4 BUN 19.0 H (7.0-18.0) mg/dL Creatinine 0.40 L (0.55-1.02) mg/dL Est GFR ( Amer) >60 (>=60) Est GFR (Non-Af Amer) >60 (>=60) BUN/Creatinine Ratio 47.5 Glucose 125 H (74-106) mg/dL Lactate 1.6 (0.4-2.0) mmol/L Calcium 9.4 (8.5-10.1) mg/dL Total Bilirubin 0.5 (0.2-1.0) mg/dL AST 26 (15-37) U/L ALT 52 (14-59) U/L Alkaline Phosphatase 102 (46-116) U/L Total Protein 8.3 H (6.4-8.2) g/dL Albumin 3.4 (3.4-5.0) g/dL Globulin 4.9 g/dL Albumin/Globulin Ratio 0.7 Discharge Plan Discharge Patient Disposition: Still a Patient
[2023-12-18 17:18] VITALS: O2SAT 97
[2023-12-18 17:20] VITALS: O2SAT 97
[2023-12-18 17:24] VITALS: PULSE 109
[2023-12-18 17:43] LABS: Basophils Percent Auto 0.1 % (0.2-2.0); Immature Granulocytes Abs Auto 0.03 10^3/uL (0.00-0.03); Immature Granulocytes Pct Auto 0.3 % (0.0-0.5); Lymphocytes Absolute Auto 0.8 10^3/uL (1.2-3.8); Lymphocytes Percent Auto 6.3 % (20.5-60.0); Mean Corpuscular HGB Conc 33.3 g/dL (29.9-35.2); Mean Corpuscular Hemoglobin 30.6 pg (26.7-34.0); Mean Corpuscular Volume 91.8 fL (81.0-99.0); Mean Platelet Volume 12.2 fL (9.5-13.5); Monocytes Absolute Auto 1.2 10^3/uL (0.3-0.8); Monocytes Percent Auto 9.8 % (1.7-12.0); Neutrophils Percent Auto 83.5 % (43.0-75.0); Platelet Count 161 10^3/uL (150-450); Red Blood Count 3.92 10^6/uL (4.20-5.40)
[2023-12-18] MEDS: 0.9 % SODIUM CHLORIDE 1,000 ML 500 ML IV (17:49)
[2023-12-18 17:55] LABS: Lactate/Lactic Acid 1.6 mmol/L (0.4-2.0)
[2023-12-18 18:01] LABS: Alanine Aminotransferase 52 U/L (14-59); Albumin Globulin Ratio 0.7; Albumin Level 3.4 g/dL (3.4-5.0); Alkaline Phosphatase 102 U/L (46-116); Anion Gap 10.4; Aspartate Amino Transferase 26 U/L (15-37); BUN Creatinine Ratio 47.5; Bilirubin Total 0.5 mg/dL (0.2-1.0); Calcium 9.4 mg/dL (8.5-10.1); Carbon Dioxide 27.8 mmol/L (21.0-32.0); Chloride 98 mmol/L (98-107); Estimated GFR (African America >60 (>=60); Estimated GFR (Non-African Ame >60 (>=60); Globulin 4.9 g/dL; Glucose 125 mg/dL (74-106); Potassium 4.2 mmol/L (3.5-5.1); Sodium 132 mmol/L (136-145); Total Protein 8.3 g/dL (6.4-8.2)
--- NOTE | 2023-12-18 18:46 | XR_ITS ---
The [address] [address] Patient Name: JT BECERRIL MRN: [id number] date: 1990 Sex: F Assigned Patient Location: ED.MAIN Current Patient Location: ED.MAIN Accession/Order Number: [id number] Exam Date: 12/18/2023 20:00 Report Date: 12/18/2023 21:12 At the request of: JUANIS ALCOCER Procedure: XR abdomen 1V EXAM: XR abdomen 1V TECHNIQUE: Single supine view abdomen following the administration of contrast through a gastrostomy tube. HISTORY: post gastrostomy tube placement COMPARISON: CT scan 12/18/2023 FINDINGS: No evidence for bowel obstruction. Large amount stool within the rectum. No evidence for free intraperitoneal air. No abnormal abdominal calcifications. Post surgical changes of the thoracolumbar spine. Contrast is seen within the stomach and proximal small bowel. XR/XR abdomen 1V IMPRESSION: Gastrostomy tube appears to be in proper position. Large amount retained stool within the rectum. Electronically authenticated by: CLARENCE ANDREWS Date: 12/18/2023 21:12
--- NOTE | 2023-12-18 19:10 | PC.NURSE ---
pt resting on ED cart alert, father at bedside. father aware of pending results at this time and denies current needs. father states that pt appears as though she is acting like she feels better .
--- NOTE | 2023-12-18 19:42 | ED.ABDPAIN1 ---
HPI - Abdominal Pain General Chief Complaint: Abdominal Pain Stated Complaint: FEEDING TUBE ISSUE, LETHARGIC Time Seen by Provider: 12/18/23 16:25 Source: patient Mode of arrival: Wheelchair Limitations: language barrier History of Present Illness HPI narrative: This 33-year-old female was signed out to me at shift change pending x-ray and CT scan. She presents for evaluation of abdominal pain and distention and dislodgment of her feeding tube. The feeding tube was replaced. The patient has a large amount of stool in her rectal vault. She has not had any vomiting. She is resting comfortably with her father at the bedside. He states she appears to be much more comfortable now than she was around 2 PM today. Her G-tube was replaced earlier in the day and the confirmatory x-ray was pending results of her CT scan. The CT scan does not show any sign of obstruction or perforation. It does show a large amount of stool in the rectal vault and stones in her kidneys. The results of the CT scan were discussed with the father and he was given a copy of the report. She will be given an enema and a KUB x-ray with Gastrografin has been ordered to confirm the placement of the G-tube. She is otherwise lying comfortably on the bed and appears alert and nontoxic or uncomfortable. The KUB shows that the feeding tube is in the stomach. You can see a large ball of stool in her rectum. She was given an enema by the nursing staff with a small amount of soft stool, it was repeated and she passed a very large ball of stool and her father was relieved. The father is anxious to take her home. He states she is back to her baseline. It does appear that she is on MiraLAX for constipation and I encouraged them to continue the MiraLAX. Related Data Home Medications ?Medication ?Instructions ?Recorded ?Confirmed levetiracetam 100 mg/mL oral 500 mg feeding tube Q12H 10/25/22 09/11/23 solution (Keppra) valproic acid (as sodium salt) 250 250 mg feeding tube BID 10/26/22 09/11/23 mg/5 mL (5 mL) oral solution glycopyrrolate 2 mg tablet 2 mg PO BID 09/11/23 09/11/23 (Rigo Valencia) polyethylene glycol 3350 17 17 g PO BID PRN constipation 09/12/23 09/12/23 gram/dose oral powder (Miralax) Previous Rx's ?Medication ?Instructions ?Recorded cefdinir 250 mg/5 mL oral 300 mg (6 mL) feeding tube BID 7 09/12/23 suspension days #84 mL Allergies Allergy/AdvReac Type Severity Reaction Status Date / Time Sulfa (Sulfonamide Allergy Intermediate Verified 10/25/22 12:31 Antibiotics) PFSH [facility] Medical History (Updated 12/18/23 @ 20:42 by Elba Kaplan MD) Elevated LFTs ?R79.89 - Other specified abnormal findings of blood chemistry (ICD-10) Constipation ?K59.00 - Constipation, unspecified (ICD-10) Cerebral palsy ?G80.9 - Cerebral palsy, unspecified (ICD-10) Visual impairment ?H54.7 - Unspecified visual loss (ICD-10) Hearing impairment ?H91.90 - Unspecified hearing loss, unspecified ear (ICD-10) History of gastrostomy tube placement Scoliosis ?M41.9 - Scoliosis, unspecified (ICD-10) Hx of seizure disorder ?Z86.69 - Personal history of other diseases of the nervous system and sense organs (ICD-10) Severe intellectual disability ?F72 - Severe intellectual disabilities (ICD-10) Surgical History History of back surgery ?Z98.890 - Other specified postprocedural states (ICD-10) Family History (Updated 09/11/23 @ 16:06 by Norma Rivera RN) Grandfather Family history of cancer Family history of hypertension Family history of stroke Father Family history of hypertension Aunt Family history of stroke Social History (Updated 09/11/23 @ 16:06 by Norma Rivera RN) Within the past year, how often did you have a drink containing alcohol: never Score interpretation: A score less than 3 is consistent with normal alcohol consumption. Smoking status: Never smoker Exam Constitutional Vital Signs, click to edit/add: Last Vital Signs Temp 98.0 F 12/18/23 16:29 Pulse 109 H 12/18/23 21:17 Resp 20 12/18/23 21:17 BP 133/86 12/18/23 16:29 Pulse Ox 97 12/18/23 21:17 O2 Del Method Room Air 12/18/23 21:17 Course Vital Signs Vital signs: Vital Signs Temperature 98.0 F 12/18/23 16:29 Pulse Rate 110 H 12/18/23 16:29 Respiratory Rate 20 12/18/23 16:29 Blood Pressure 133/86 12/18/23 16:29 Pulse Oximetry 100 12/18/23 16:29 Temperature 98.0 F 12/18/23 16:29 Pulse Rate 109 H 12/18/23 21:17 Respiratory Rate 20 12/18/23 21:17 Blood Pressure 133/86 12/18/23 16:29 Pulse Oximetry 97 12/18/23 21:17 Oxygen Delivery Method Room Air 12/18/23 21:17 MDM - Abdominal Pain Lab Data Labs: Lab Results 12/18/23 12/18/23 Range/Units 17:09 17:16 WBC 12.0 H (4.0-11.0) 10^3/uL RBC 3.92 L (4.20-5.40) 10^6/uL Hgb 12.0 (12.0-16.0) g/dL Hct 36.0 (36.0-48.0) % MCV 91.8 (81.0-99.0) fL MCH 30.6 (26.7-34.0) pg MCHC 33.3 (29.9-35.2) g/dL RDW 13.0 (11.0-15.0) % Plt Count 161 (150-450) 10^3/uL MPV 12.2 (9.5-13.5) fL Neut % (Auto) 83.5 H (43.0-75.0) % Lymph % (Auto) 6.3 L (20.5-60.0) % [place] % (Auto) 9.8 (1.7-12.0) % Eos % (Auto) 0.0 L (0.9-7.0) % Baso % (Auto) 0.1 L (0.2-2.0) % Neut # (Auto) 10.0 H (1.4-6.5) 10^3/uL Lymph # (Auto) 0.8 L (1.2-3.8) 10^3/uL [place] # (Auto) 1.2 H (0.3-0.8) 10^3/uL Eos # (Auto) 0.0 (0.0-0.7) 10^3/uL Baso # (Auto) 0.0 (0.0-0.1) 10^3/uL Abs Immat Gran (auto) 0.03 (0.00-0.03) 10^3/uL Imm/Tot Granulo (auto) 0.3 (0.0-0.5) % Sodium 132 L (136-145) mmol/L Potassium 4.2 (3.5-5.1) mmol/L Chloride 98 (98-107) mmol/L Carbon Dioxide 27.8 (21.0-32.0) mmol/L Anion Gap 10.4 BUN 19.0 H (7.0-18.0) mg/dL Creatinine 0.40 L (0.55-1.02) mg/dL Est GFR ( Amer) >60 (>=60) Est GFR (Non-Af Amer) >60 (>=60) BUN/Creatinine Ratio 47.5 Glucose 125 H (74-106) mg/dL Lactate 1.6 (0.4-2.0) mmol/L Calcium 9.4 (8.5-10.1) mg/dL Total Bilirubin 0.5 (0.2-1.0) mg/dL AST 26 (15-37) U/L ALT 52 (14-59) U/L Alkaline Phosphatase 102 (46-116) U/L Total Protein 8.3 H (6.4-8.2) g/dL Albumin 3.4 (3.4-5.0) g/dL Globulin 4.9 g/dL Albumin/Globulin Ratio 0.7 Discharge Plan Discharge Chief Complaint: Abdominal Pain Clinical Impression: Dislodged gastrostomy tube, Abdominal distension, Constipation Patient Disposition: Home, Self-Care Time of Disposition Decision: 20:42 Condition: Good Prescriptions / Home Meds: No Action levetiracetam [Keppra] 100 mg/mL solution 500 mg feeding tube Q12H Patient Comments: PER MOTHER - WANTS TO USE HOME MEDICATON IN THE HOSPITAL Rx Instructions: PER RETAIL FILL HX, TALKING WITH MOTHER, AND LOOKING AT HOME MEDICATION BOTTLE - PATIENTS HOME MED IS LEVETIRACETAM 100MG/ML SOLUTION PER G-TUBE Q12HRS valproic acid (as sodium salt) 250 mg/5 mL (5 mL) solution 250 mg feeding tube BID Patient Comments: PER MOTHER - WANTS TO USE HOME MEDICATION IN THE HOSPITAL Rx Instructions: PER RETAIL FILL HX, TALKING WITH MOTHER, AND LOOKING AT HOME MEDICATION BOTTLE PATIENTS HOME MED IS VALPROIC ACID 250MG/5ML SOLUTION - TAKE [id number] PER G-TUBE TWICE A DAY glycopyrrolate [Robinul Forte] 2 mg tablet 2 mg PO BID polyethylene glycol 3350 [Miralax] 17 gram/dose powder 17 g PO BID PRN (Reason: constipation) cefdinir 250 mg/5 mL suspension for reconstitution 300 mg feeding tube BID 7 Days Qty: 84 0RF Print Language: Lao Instructions: Constipation (ED), Fleet Enema (ED) Additional Instructions: Continue MiraLAX for constipation. Referrals: [facility] [Primary Care Provider] - 1 week Discharge Date/Time: 12/18/23 21:19
--- NOTE | 2023-12-18 20:36 | PC.NURSE ---
soap suds enema administered at this time per provider orders. approx 250ml of fluid instilled at this time with pt tolerating as expected. father verbalizes understanding of waiting for pt to have bowel movement before able to be discharged. father denies needs at this time.
[2023-12-18 21:17] VITALS: PULSE 109; O2SAT 97
== END 2023-12-18 21:19 | disposition home or self-care (01) ==
PROVIDERS: Emergency Medicine; Emergency Provider Emergency Medicine; PCP Nurse Practitioner
DX: K94.29 Other complications of gastrostomy (principal); R14.0 Abdominal distension (gaseous); K59.00 Constipation, unspecified; G80.9 Cerebral palsy, unspecified
CPT/HCPCS: 36415; 74018; 74176; 80053; 83605; 85025; 93005; 99285; Q9963

== ENCOUNTER 2024-08-25 10:31 | Outpatient (OUT) | payer MEDICAID, SELFPAY ==
--- OUTSIDE RECORDS SUMMARY | 2024-08-25 10:36 | XMS_ITS | CCD ---
Author Organization [facility] Care Team Providers Care Coagulating Bath Mixer Name Role Phone PAY ., DR ZENG Attending Unavailable MCQUEEN ., DR ADAM Emerson Primary Care Unavailable PAY ., DR ZENG Admitting Unavailable PAY ., DR ZENG Consulting Unavailable SHAKIR MARTINEZ Consulting Unavailable VALORIE, DR ADAMS Attending Unavailable VALORIE, DR ADAMS Admitting Unavailable MCQUEEN ., DR ADAM Emerson Primary Care Unavailable VALORIE, DR ADAMS Consulting Unavailable BOLAÑOS, REE J Primary Care Unavailable CHELSI HOUSE Attending Unavailable CHELSI HOUSE Attending Unavailable CHELSI HOUSE Referring Unavailable BOLAÑOS, REE J Primary Care Unavailable Bolaños HANSARD REPORTER, Ree Unavailable [phone] PROVIDER, UNKNOWN Admitting Unavailable APRIL CONCEPCION Attending Unavailable Bolaños MUSEUM SPECIALIST-SCALE BALANCER, Ree J Primary Care Provid er Bolaños MUSEUM SPECIALIST-SCALE BALANCER, Ree J Primary Care Provid er Bolaños MUSEUM SPECIALIST-SCALE BALANCER, Ree J Primary Care Provid er BOLAÑOS, REE J Attending Unavailable BOLAÑOS, REE J Referring Unavailable BOLAÑOS, REE J Primary Care Unavailable BOLAÑOS, REE J Attending Unavailable BOLAÑOS, REE J Referring Unavailable BOLAÑOS, REE J Primary Care Unavailable BOLAÑOS, REE J Attending Unavailable BOLAÑOS, REE J Referring Unavailable BOLAÑOS, REE J Primary Care Unavailable BOLAÑOS, REE J Referring Unavailable BOLAÑOS, REE J Primary Care Unavailable Bolaños HANSARD REPORTER, Ree Unavailable [phone] Unavailable Primary Care Provider UnavailBRYAN Mckinnon Attending Unavailable BRYAN EUGENE Attending Unavailable Allergies Allergy Classification Reported Allergen(s) Allergy Type Date of Onset Reaction(s) Facility (1 source) Sulfonamides (Antibiotic) Drug allergy (disorder) 7 [facility] Repository (12 sources) Sulfonamides (Antibiotic); Translations: [SULFA (SULFONAMIDE ANTIBIOTICS)] Propensity to adverse reactions to drug (disorder) 6 [facility] Repository (6 sources) Sulfonamides (Antibiotic) Drug Intolerance 6 [facility] Medications Current Medications Medication Drug Class(es) Dates Sig (Normalized) Sig (Original) albuterol 0.83 mg/ml inhalation solution (13 sources) beta2-Adrenergic Agonist End: 09-19-2023 albuterol (2.5 MG/3ML) 0.083% nebulizer solution INHALE CONTENTS OF 1 VIAL IN NEBULIZER EVERY 4 HOURS Active blood pressure test kit-small kit (3 sources) Start: 11-11-2022 End: 05-31-2023 blood pressure test kit-small kit 1 kit by miscellaneous route continuously. 1 each 0 11/11/2022 05/31/2023 Discontinued Start: 11-11-2022 blood pressure test kit-small kit 1 kit by miscellaneous route continuously. 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[facility]) 1 can per g tube 5 times per day 75949 mL 06/11/2024 Active glycopyrrolate 2 mg oral tab let (18 sources) Start: 07-12-2024 glycopyrrolate (ROBINUL) 2 MG tablet Indications: Salivation excessive give 1 tablet PER TUBE every morning and BEFORE BEDTIME 60 tablet 11 07/12/2024 Active Start: 01-17-2023 End: 07-12-2024 glycopyrrolate (ROBINUL) 2 M G tablet Indications: Salivation excessive give 1 tablet PER TUBE every morning and BEFORE BEDTIME 60 tablet 6 01/11/2024 07/12/2024 Discontinued (Reorder) take 1 tablet by jasiel th in the morning glycopyrrolate (Robinul) 2 MG tablet Take 2 mg by mouth in the morning and 2 mg before bedtime. Active hydrocortisone 10 mg/ml topical cream (1 source) Corticosteroid Start: 05-04-2024 End: 07-12-2024 hydrocortisone (HYTONE) 1 % cream Apply to affected area 2 times daily 15 g 05/04/2024 07/12/2024 Discontinued (Therapy completed) levETIRAcetam 100 mg/ml oral solution (19 sources) Start: 01-04-2024 End: 01-04-2024 levETIRAcetam (Keppra) 100 MG/ML solution Indications: Seizure disorder (CMS/HCC) ADMINISTER 5 MILLILITER PER TUBE twice a day 473 mL 5 01/04/2024 Active Start: 05-31-2023 End: 01-11-2024 levETIRAcetam (KEPPRA) 100 m g/mL solution Indications: Seizure disorder (CMS-HCC) Administer 5 mL (500 mg total) per tube in the morning and 5 mL (500 mg total) before bedtime. 100MG/ML 5 ml q12. 473 mL 6 01/11/2024 Active metoprolol tartrate 25 mg oral tablet (4 [...] vomiting. 20 tablet 1 03/10/2023 05/31/2023 Discontinued polyethylene glycol 3350 30920 mg powder for oral solution (1 source) Osmotic Laxative Start: 07-12-2024 polyethylene glycol (GLYCOLAX) 17 gram packet Indications: Chronic constipation Take 17 g by mouth in the morning. 30 packet 11 07/12/2024 Active Start: 07-12-2024 polyethylene g lycol (GLYCOLAX) 17 gram packet Indications: Chronic constipation Take 17 g by mouth in the morning. 30 packet 11 07/12/2024 Active valproic acid 50 mg/ml oral solution (18 sources) Mood Stabilizer, Anti-epileptic Agent Start: 01-04-2024 take 5 mL by mouth once in the morning, then take 7.5 mL by mouth once at bedtime valproic acid (Depakene) 250 MG/5ML oral liquid Indications: Seizure disorder (CMS/HCC) 5ml q am and 7.5 ml q hs 473 mL 5 01/04/2024 Active Start: 05-31-2023 End: 05-31-2023 valproic acid, as sodium sujit t, (DEPAKENE) 250 mg/5 mL (5 mL) solution Indications: Seizure disorder (CMS-HCC) Administer 5 mL (250 mg total) per tube in the morning and 5 mL (250 mg total) before bedtime. 300 mL 6 05/31/2023 Active End: 01-04-2024 take 5 mL by mouth twice daily valproic acid (Depakene ) 250 MG/5ML oral liquid ADMINISTER 5 MILLILITER by mouth twice a day 01/04/2024 Discontinued (Reorder) Problems Active Problems Problem Classification Problem Date Documented Da te Episodic/Chronic Complication of device; implant or graft (1 source) Other mechanical complication of other gastrointestinal prosthetic devices, implants and grafts, initial encounter; Translations: [Other mechanical complication of other gastrointestinal prosthetic devices, implants and grafts, initial encounter] Onset: 4 Episodic Developmental disorders (9 sources) Cognitive developmental delay; Translations: [Developmental disorder of scholastic skills, unspecified] 01-04-2024 Chronic Epilepsy; convulsions (18 sources) Epilepsy, unspecified, not intractable, without status epilepticus; Translations: [Seizure disorder] Onset: 3 Chronic Epilepsy; convulsions (2 sources) Seizure; Translations: [Unspecified convulsions] 08-14-2024 Episodic Essential hypertension (2 sources) Benign essential hypertension; Translations: [Essential (primary) hypertension] 05-21-2023 Chronic Fever of unknown origin (1 source) Fever, unspecified; Translations: [FEVER UNSPECIFIED] Onset: 3 Episodic Mood disorders (4 sources) Mood disorder; Translations: [Unspecified mood [affective] disorder] 01-04-2024 Chronic Nutritional deficiencies (3 sources) Vitamin D deficiency; Translations: [Vitamin D deficiency, unspecified] Onset: 5 07-12-2024 Chronic Other aftercare (1 source) Other long term care administrator (current) drug therapy; Translations: [OTH CARE HOME CURRENT DRUG THERAPY] Onset: 3 Episodic Other aftercare (4 sources) Patient encounter status; Translations: [Encounter for therapeutic drug level monitoring] 01-04-2024 Episodic Other gastrointestinal disorders (1 source) Gastrostomy status; Translations: [GASTROSTOMY STATUS] Onset: 3 Chronic Other gastrointestinal disorders (1 source) Chronic constipation; Translations: [Other constipation] 07-12-2024 Episodic Other gastrointestinal disorders (1 source) Other constipation; Translations: [Other constipation] Onset: 5 Episodic Other upper respiratory disease (1 source) Other specified disorders of nose and nasal sinuses; Translations: [OTH SPEC D/O NOSE NASAL SINUSES] Onset: 3 Episodic Other upper respiratory infections (1 source) Acute upper respiratory infection, unspecified; Translations: [ACUTE UP RESPIRATORY INFECTION UNS] Onset: 3 Episodic Paralysis (16 sources) Cerebral palsy, unspecified; 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] Onset: 3 01-04-2024 Chronic Unclassified (2 sources) COUGH, UNSPECIFIED; Translations: [COUGH, UNSPECIFIED] Onset: 3 Unclassified (2 sources) Feeding Tube Problem Onset: 4 Unclassified (1 source) cerbal palsey Onset: 4 Viral infection (1 source) COVID-19; Translations: [COVID-19] Onset: 3 Past or Other Problems Problem Classification Problem Date Documented Da te Episodic/Chronic Acute and unspecified renal failure (10 sources) Acute injury of kidney; Translations: [Acute kidney failure, unspecified] Onset: 3 10-29-2022 Episodic Biliary tract disease (11 sources) Cholelithiasis without obstruction; Translations: [Calculus of gallbladder without cholecystitis without obstruction] Onset: 3 04-14-2023 Episodic Deficiency and other anemia (1 source) Iron deficiency anemia; Translations: [Other iron deficiency anemias] 05-31-2023 Episodic Diseases of mouth; excluding dental (14 sources) Excessive salivation; Translations: [Disturbances of salivary secretion] Onset: 7 12-01-2016 Episodic Gastrointestinal hemorrhage (10 sources) Lower gastrointestinal hemorrhage; Translations: [Gastrointestinal hemorrhage, unspecified] Onset: 3 08-30-2022 Episodic Mood disorders (9 sources) Mood disorders Onset: 3 Resolved: 5 02-08-2023 Neoplasms of unspecified nature or uncertain behavior (10 sources) Thrombocytosis; Translations: [Thrombocytosis] Onset: 3 11-08-2022 Episodic Other liver diseases (10 sources) Enzyme level - finding; Translations: [Transaminitis] Onset: 3 10-29-2022 Episodic Other liver diseases (1 source) Elevated liver enzymes level; Translations: [Abnormal levels of other serum enzymes] 05-31-2023 Episodic Otitis media and related conditions (10 sources) Chronic otitis media; Translations: [Otitis media, unspecified, unspecified ear] Onset: 7 12-01-2016 Episodic Pneumonia (except that caused by tuberculosis or sexually transmitted disease) (10 sources) Pneumonia; Translations: [Pneumonia, unspecified organism] Onset: 3 10-28-2022 Episodic Unclassified (1 source) COUGH, UNSPECIFIED; Translations: [COUGH, UNSPECIFIED] Onset: 3 Unclassified (9 sources) Onset: 3 Resolved: 4 12-07-2022 Urinary tract infections (2 sources) Acute cystitis; Translations: [Acute cystitis without hematuria] Onset: 4 09-19-2023 Episodic Results Test Name Value Interpretation Reference Range Facility CBC AND AUTO DIFFon 07-13-19 25 ABSOLUTE BASOPHIL 0.0 X10E9/L Normal 0.0-0.2 [facility] Comment on above: Performed By: #### C HAYDEE CMP, 33001-7, 3016-3, 36628-6 #### [facility] ([id number]) [address], [address] [place] [address] ABSOLUTE NEUTROPHIL 5.7 X10E9/L Normal 1.5-6.6 [facility] Comment on above: Performed By: #### C HAYDEE, CMP, 42526-6, 3016-3, 73166-5 #### [facility] ([id number]) [address], [facility] [address] [place] [address] Basophils/100 WBC (Bld) 0.4 % Normal [facility] Comment on above: Performed By: #### C BCA, CMP, 21545-3, 3016-3, 08278-4 #### [facility] ([id number]) [address] [place] [address] Eosinophils (Bld) [#/Vol] 0.0 10*3/uL Normal 0.0-0.4 [facility] Comment on above: Performed By: #### C HAYDEE, CMP, 67356-5, 3016-3, 10072-3 #### [facility] ([id number]) [address], [address] [place] [address] Eosinophils/100 WBC (Bld) 0.2 % Normal [facility] Comment on above: Performed By: #### C BCA, CMP, 89103-2, 3016-3, 30733-2 #### [facility] ([id number]) [address], [address] [place] [address] Erythrocyte distribution width (RBC) [Ratio] 13.8 % Normal 11.5-15.0 [facility] Comment on above: Performed By: #### C BCA, CMP, 03936-7, 3016-3, 46267-7 #### [facility] ([id number]) [address] [place] [address] Hematocrit (Bld) [Volume fraction] 38.6 % Normal 35-47 [facility] Comment on above: Performed By: #### C BCA, CMP, 08133-4, 3016-3, 56617-8 #### [facility] ([id number]) [address] [address] [place] [address] Hemoglobin (Bld) [Mass/Vol] 13.2 g/dL Normal 11.7-15.5 [facility] Comment on above: Performed By: #### C BCA, CMP, 49449-2, 3016-3, 01022-9 #### [facility] ([id number]) [address] [address] [place] [address] Lymphocytes (Bld) [#/Vol] 0.9 10*3/uL Low 1.0-3.5 [facility] Comment on above: Performed By: #### C BCA, CMP, 25287-8, 6-3, 85191-4 #### [facility] ([id number]) [address] [address] [place] [address] Lymphocytes/100 WBC (Bld) 11.6 % Normal [facility] Comment on above: Performed By: #### C BCA, CMP, 54117-2, 3016-3, 91701-5 #### [facility] ([id number]) [address], [address] [place] [address] MCH (RBC) [Entitic mass] 31.7 pg Normal 27-34 [facility] Comment on above: Performed By: #### C BCA, CMP, 72713-8, 3016-3, 77955-6 #### [facility] ([id number]) [address], [address] [place] [address] MCHC (RBC) [Mass/Vol] 34.1 g/dL Normal 32-36 [facility] Comment on above: Performed By: #### C BCA, CMP, 09140-3, 3016-3, 43085-5 #### [facility] ([id number]) [address], [facility] [address] [place] [address] MCV (RBC) [Entitic vol] 93 fL Normal 80-100 [facility] Comment on above: Performed By: #### C BCA, CMP, 09070-1, 3016-3, 26556-0 #### [facility] ([id number]) [address], [address] [address] Monocytes (Bld) [#/Vol] 1.0 10*3/uL High 0-0.9 [facility] Comment on above: Performed By: #### Tiarra BCA, CMP, 05506-7, 3016-3, 11582-5 #### [facility] ([id number]) [address], [facility] [address] [place] [address] Monocytes/100 WBC (Bld) 12.7 % Normal [facility] Comment on above: Performed By: #### C BCA, CMP, 36552-5, 3016-3, 83486-0 #### [facility] ([id number]) [address], [facility] [address] [place] [address] Neutrophils/100 WBC (Bld) 75.1 % Normal [facility] Comment on above: Performed By: #### C BCA, CMP, 91955-5, 3016-3, 76569-2 #### [facility] ([id number]) [address], [facility] [address] [place] [address] Platelet mean volume (Bld) [Entitic vol] 12.0 fL Normal 7-12 [facility] Comment on above: Performed By: #### C BCA, CMP, 39778-0, 3016-3, 73337-0 #### [facility] ([id number]) [address], [address] [place] [address] Platelets (Bld) [#/Vol] 117 10*3/uL Low 150-450 [facility] Comment on above: Performed By: #### C BCA, CMP, 32423-8, 3016-3, 03256-4 #### [facility] ([id number]) [address], [address] [place] [address] RBC COUNT 4.15 X10E12/L Normal 3.80-5.20 [facility] Comment on above: Performed By: #### C BCA, CMP, 96501-4, 3016-3, 39802-9 #### [facility] ([id number]) [address] [address] WBC (Bld) [#/Vol] 7.6 10*3/uL Normal 4.0-11.0 [facility] Comment on above: Performed By: #### C BCA, CMP, 59605-2, 3016-3, 18774-4 #### [facility] ([id number]) [address] [address] [place] [address] COMPREHENSIVE METABOLIC PANE Bowen 07-12-2024 Albumin [Mass/Vol] 4.3 g/dL Normal 3.2-5.3 [facility] Comment on above: Performed By: #### C BCA, CMP, 55399-5, 3016-3, 17859-4 #### [facility] ([id number]) [address] [address] [place] [address] ALP [Catalytic activity/Vol] 71 U/L Normal 39-130 [facility] Comment on above: Performed By: #### C BCA, CMP, 61350-3, 3016-3, 81609-6 #### [facility] ([id number]) [address], [address] [place] [address] ALT [Catalytic activity/Vol] 49 U/L High 0-31 [facility] Comment on above: Performed By: #### C BCA, CMP, 85951-5, 3016-3, 00668-9 #### [facility] ([id number]) [address], [address] [place] [address] Anion gap [Moles/Vol] 9 mmol/L Normal 5-15 [facility] Comment on above: Performed By: #### C BCA, CMP, 86927-3, 3016-3, 03981-1 #### [facility] ([id number]) [address], [address] [place] [address] AST [Catalytic activity/Vol] 33 U/L Normal 0-41 [facility] Comment on above: Performed By: #### C BCA, CMP, 34823-9, 3016-3, 33712-6 #### [facility] ([id number]) [address], [address] [place] [address] Bilirubin [Mass/Vol] 0.4 mg/dL Normal 0.3-1.2 [facility] Comment on above: Performed By: #### C BCA, CMP, 98507-8, 3016-3, 07930-3 #### [facility] ([id number]) [address], [address] [place] [address] Calcium [Mass/Vol] 9.8 mg/dL Normal 8.5-10.5 [facility] Comment on above: Performed By: #### C BCA, CMP, 90692-0, 3016-3, 77493-7 #### [facility] ([id number]) [address], [address] [place] [address] Chloride [Moles/Vol] 101 mmol/L Normal 98-109 [facility] Comment on above: Performed By: #### C BCA, CMP, 32621-1, 3016-3, 19357-9 #### [facility] ([id number]) [address], [address] [place] [address] CO2 [Moles/Vol] 26 mmol/L Normal 22-32 [facility] Comment on above: Performed By: #### C BCA, CMP, 10480-1, 3016-3, 00792-1 #### [facility] ([id number]) [address], [address] [place] [address] Creatinine [Mass/Vol] 0.35 mg/dL Low 0.40-1.00 [facility] Comment on above: Result Comment: METH OD TRACEABLE TO IDMS STANDARD Performed By: #### C BCA, CMP, 17119-8, 3016-3, 03855-3 #### [facility] ([id number]) [address], [address] [place] [address] eGFR (CKD-EPI) NON-RACE DEPENDENT >90 Normal >59 [facility] Comment on above: Result Comment: Reported eGFR is based on the CKD-EPI 2020 equation that does not use a race coefficient. Performed By: #### C BCA, CMP, 35975-8, 3016-3, 03901-3 #### [facility] ([id number]) [address], [address] [place] [address] Glucose [Mass/Vol] 81 mg/dL Normal 65-99 [facility] Comment on above: Performed By: #### C BCA, CMP, 15913-7, 3016-3, 33536-0 #### [facility] ([id number]) [address] [address] [place] [address] Potassium [Moles/Vol] 3.7 mmol/L Normal 3.5-5.0 [facility] Comment on above: Performed By: #### C BCA, CMP, 24906-5, 3016-3, 46322-2 #### [facility] ([id number]) [address], [address] [place] [address] Protein [Mass/Vol] 7.9 g/dL Normal 6.0-8.0 [facility] Comment on above: Performed By: #### C BCA, CMP, 73884-1, 3016-3, 00531-7 #### [facility] ([id number]) [address], [facility] [address] [place] [address] Sodium [Moles/Vol] 136 mmol/L Normal 134-146 [facility] Comment on above: Performed By: #### C BCA, CMP, 03428-1, 3016-3, 67811-6 #### [facility] ([id number]) [address], [address] [address] Urea nitrogen [Mass/Vol] 16 mg/dL Normal 5-23 [facility] Comment on above: Performed By: #### C BCA, CMP, 11368-8, 3016-3, 03519-4 #### [facility] ([id number]) [address], [facility] [address] [place] [address] Lipid 1996 panelon 5 Cholesterol [Mass/Vol] 107 mg/dL Low 150-200 [facility] Comment on above: Performed By: #### C BCA, CMP, 54373-4, 3016-3, 41079-7 #### [facility] ([id number]) [address], [address] [address] Cholesterol in HDL [Mass/Vol] 39 mg/dL Low >39 [facility] Comment on above: Result Comment: HDL <40 mg/dL - High Risk HDL > or = 40mg/dL- Desirable HDL >60 mg/dL - Negative Risk Performed By: #### C BCA, CMP, 21985-6, 3016-3, 72365-1 #### [facility] ([id number]) [address], [address] [place] [address] Cholesterol in LDL [Mass/Vol] 39 mg/dL Normal <130 [facility] Comment on above: Result Comment: LDL <100 mg/dL - Desirable LDL >160 mg/dL - High Risk Performed By: #### C BCA, CMP, 93598-6, 3016-3, 63201-6 #### [facility] ([id number]) [address], [address] [place] [address] Cholesterol in VLDL [Mass/Vol] 29 mg/dL Normal 0-30 [facility] Comment on above: Performed By: #### C BCA, CMP, 02525-7, 3016-3, 82024-2 #### [facility] ([id number]) [address], [address] [place] [address] CHOLESTEROL:HDL 2.7 Normal 1.0-5.0 [facility] Comment on above: Performed By: #### C BCA, CMP, 91623-7, 3016-3, 35796-8 #### [facility] ([id number]) [address], [address] [place] [address] Triglyceride [Mass/Vol] 147 mg/dL Normal 27-150 [facility] Comment on above: Performed By: #### C BCA, CMP, 43392-8, 3016-3, 81799-0 #### [facility] ([id number]) [address], [address] [place] [address] TSH Qnon 07-12-2024 TSH 1.39 uIU/mL Normal 0.49-4.67 [facility] Comment on above: Performed By: #### C BCA, CMP, 63566-4, 3016-3, 12116-0 #### [facility] ([id number]) [address] [place] [address], [address] [place] [address] Vitamin D+Metabolites [Mass/ Vol]on 07-12-2024 VITAMIN D 25 HYD TOT 31.3 ng/mL Normal 30-100 [facility] Comment on above: Result Comment: Vitamin D status 25 [place] Vitamin D Deficiency <20 ng/mL Insufficiency 20-29 ng/mL Sufficiency 30-100 ng/mL Toxicity >100 ng/mL NOTE: A pediatric reference range has not been established by the senior front end engineer of this kit. The [place] [employer] recommends a Vitamin D level of = or >20ng/mL in infants and children. Performed By: #### C HAYDEE, CMP, 60907-0, 3016-3, 32300-0 #### [facility] ([id number]) [address] [place] [address], [address] [place] [address] Progress Noteson 04-19-2024 Pre Billing Specialist Authentication Interface Message Text ----- April at 12:48:58 PM ----- ----- Provider: Timothy Concepcion Resident -- Clinic: [place] [address] ----- INITIAL/COMPREHENSIV E EXAM Patient presents for an Initial Examination with father. Paitent is on a wheelchair. Reviewed patient's medical history. Patient has a history of: . Cerebral palsy, thrombocytosis. No contraindications, patient is ready for treatment. Patient's father explained that patient usually get prophy treatment done in a nearby clinic to their home which is an hour [place] a half from here. Father said they were referred to [facility] for xrays and a comprehensive exam. Pain Scale: 0/10 Radiographs taken today were: 6 PAs Clinical and radiographic exam shows the following findings and treatment plans: 1. No dental caries noted on xrays. Patient will continue to receive prophy treatment at local dental clinic and will be seen again by us for a new comprehensive exam in one year. Completed current status of dentition on the charting. Went over needs and treatment plan options with the patient. OHI were discussed with the patient. Written Instructions/AVS were also handed to the patient. Pt Concern: Full Exam was successfully done. Patient consented to the treatment plan. PRIOR: Not needed NOTE: Patient was very cooperative but does not easily follow instructions so xrays were taken by holding sensor in mouth. Legal Guardian (Father) Mathieu Wilson Next Visit: Comprehensive exam ----- Signed on April at 1:26:14 PM ----- ----- Provider: Carmen Paige DDS -- Clinic: [place] [address] ----- Normal [facility] CT Abdomen and Pelvis WO con trastOrdered By: Inge Zheng on 09-12-2023 [facility] and Pelvis WO con trastOrdered By: Inge Zheng on 09-11-2023 Radiology Study observation (narrative) [facility] XR ABDOMEN AP 1 VWon 024 XR [...] Beni Donahue MD on 05/15/2023 4:55 PM IDelano MD have personally reviewed the image(s) and agree with and/or edited the report Finalized by Delano Ayala MD on 05/15/2023 5:[address] [facility] LEVETIRACETAM, SERUM OR PLAS MAon 07-12-2022 Levetiracetam, S 28.2 ug/mL Normal 10.0-40.0 [facility] Comment on above: Performed By: #### K EPPRA #### [facility] [address] [place] [address] Dr. Gurmeet Ivan CBC AUTO DIFFon 07-08-2022 BASO # 0.0 103/ul Normal 0.0-0.1 [facility] Comment on above: Performed By: #### C BC #### [facility] [address] [place] [address] Dr. Gurmeet Ivan Basophils/100 WBC (Bld) 0.4 % Normal 0.2-2.0 [facility] Comment on above: Performed By: #### C BC #### [facility] [address] [place] [address] Dr. Gurmeet Ivan EO # 0.1 103/ul Normal 0.0-0.7 [facility] Comment on above: Performed By: #### C BC #### [facility] [address] [place] [address] Dr. Gurmeet Ivan Eosinophils/100 WBC (Bld) 1.0 % Normal 0.9-7.0 [facility] Comment on above: Performed By: #### C BC #### [facility] [address] [place] [address] Dr. Gurmeet Ivan Erythrocyte distribution width (RBC) [Ratio] 13.6 % Normal 11.0-15.0 [facility] Comment on above: Performed By: #### C BC #### [facility] [address] [place] [address] Dr. Gurmeet Ivan Hematocrit (Bld) [Volume fraction] 38.9 % Normal 36.0-48.0 [facility] Comment on above: Performed By: #### C BC #### [facility] [address] [place] [address] Dr. Gurmeet Ivan Hemoglobin (Bld) [Mass/Vol] 13.0 g/dL Normal 12.0-16.0 [facility] Comment on above: Performed By: #### C BC #### [facility] [address] [place] [address] Dr. Gurmeet Ivan IG # 0.02 10e3/ul Normal 0.00-0.03 [facility] Comment on above: Performed By: #### C BC #### [facility] [address] [place] [address] Dr. Gurmeet Ivan IG % 0.3 % Normal 0.0-0.5 [facility] Comment on above: Performed By: #### C BC #### [facility] [address] [place] [address] Dr. Gurmeet Ivan LYMPH # 1.5 103/ul Normal 1.2-3.8 [facility] Comment on above: Performed By: #### C BC #### [facility] [address] [place] [address] Dr. Gurmeet Ivan Lymphocytes/100 WBC (Bld) 22.0 % Normal 20.5-60.0 [facility] Comment on above: Performed By: #### C BC #### [facility] [address] [place] [address] Dr. Gurmeet Ivan MANUAL DIFF REQ NO Normal [facility] Comment on above: Performed By: #### C BC #### [facility] [address] [place] [address] Dr. Gurmeet Ivan MCH (RBC) [Entitic mass] 29.3 pg Normal 26.7-34.0 [facility] Comment on above: Performed By: #### C BC #### [facility] [address] [place] [address] Dr. Gurmeet Ivan MCHC (RBC) [Mass/Vol] 33.4 g/dL Normal 29.9-35.2 [facility] Comment on above: Performed By: #### C BC #### [facility] [address] [place] [address] Dr. Gurmeet Ivan MCV (RBC) [Entitic vol] 87.8 fL Normal 81.0-99.0 [facility] Comment on above: Performed By: #### C BC #### [facility] [address] [place] [address] Dr. Gurmeet Ivan MONO # 0.5 103/ul Normal 0.3-0.8 [facility] Comment on above: Performed By: #### C BC #### [facility] [address] [place] [address] Dr. Gurmeet Ivan Monocytes/100 WBC (Bld) 6.6 % Normal 1.7-12.0 [facility] Comment on above: Performed By: #### C BC #### [facility] [address] [place] [address] Dr. Gurmeet Ivan NEUT # 4.8 103/ul Normal 1.4-6.5 [facility] Comment on above: Performed By: #### C BC #### [facility] [address] [place] [address] Dr. Gurmeet Ivan Neutrophils/100 WBC (Bld) 69.7 % Normal 43.0-75.0 [facility] Comment on above: Performed By: #### C BC #### [facility] [address] [place] [address] Dr. Gurmeet Ivan Platelet mean volume (Bld) [Entitic vol] 11.5 fL Normal 9.5-13.5 [facility] Comment on above: Performed By: #### C BC #### [facility] [address] [place] [address] Dr. Gurmeet Ivan PLT 229 103/ul Normal 150-450 [facility] Comment on above: Performed By: #### C BC #### [facility] [address] [place] [address] Dr. Gurmeet Ivan RBC 4.43 106/ul Normal 4.20-5.40 [facility] Comment on above: Performed By: #### C BC #### [facility] [address] [place] [address] Dr. Gurmeet Ivan WBC 6.9 103/ul Normal 4.0-11.0 [facility] Comment on above: Performed By: #### C BC #### [facility] [address] [place] [address] Dr. Gurmeet Ivan DEPAKENE/ VALPROIC ACIDon DEPAKENE 59.7 ug/ml Normal 50.0-100.0 [facility] Comment on above: Performed By: #### B MP, LIVER, VALP #### [facility] [address] [place] [address] Dr. Gurmeet Ivan LIVER PROFILEon 03-30-2023 Albumin [Mass/Vol] 3.7 g/dL Normal 3.4-5.0 [facility] Comment on above: Performed By: #### B MP, LIVER, VALP #### [facility] [address] [place] [address] [address] Gurmeet Ivan Albumin/Globulin [Mass ratio] 0.8 {ratio} Normal [facility] Comment on above: Performed By: #### B MP, LIVER, VALP #### [facility] [address] [place] [address] [address] Gurmeet Ivan ALP [Catalytic activity/Vol] 132 U/L Critically high 46-116 [facility] Comment on above: Performed By: #### B MP, LIVER, VALP #### [facility] [address] [place] [address] Dr. Gurmeet Ivan ALT [Catalytic activity/Vol] 51 U/L Normal 14-59 [facility] Comment on above: Performed By: #### B MP, LIVER, VALP #### [facility] [address] [address] [address] Gurmeet Ivan AST [Catalytic activity/Vol] 34 U/L Normal 15-37 [facility] Comment on above: Performed By: #### B MP, LIVER, VALP #### [facility] [address] [place] [address] Dr. Gurmeet Ivan BILI, CONJUGATED 0.1 mg/dL Normal 0.0-0.2 [facility] Comment on above: Performed By: #### B MP, LIVER, VALP #### [facility] [address] [place] [address] Dr. Gurmeet Ivan Bilirubin [Mass/Vol] 0.2 mg/dL Normal 0.2-1.0 [facility] Comment on above: Performed By: #### B MP, LIVER, VALP #### [facility] [address] [place] [address] Dr. Gurmeet Ivan Globulin (S) [Mass/Vol] 4.8 g/dL Normal [facility] Comment on above: Performed By: #### B MP, LIVER, VALP #### [facility] [address] [address] [address] Gurmeet Ivan Protein [Mass/Vol] 8.5 g/dL Critically high 6.4-8.2 [facility] Comment on above: Performed By: #### B MP, LIVER, VALP #### [facility] [address] [place] [address] Dr. Gurmeet Ivan PROF CHEM 8 (BAS METB)on Anion gap [Moles/Vol] 10.8 mmol/L Normal [facility] Comment on above: Performed By: #### B MP, LIVER, VALP #### [facility] [address] [place] [address] Dr. Gurmeet Ivan Calcium [Mass/Vol] 9.3 mg/dL Normal 8.5-10.1 [facility] Comment on above: Performed By: #### B MP, LIVER, VALP #### [facility] [address] [place] [address] Dr. Gurmeet Ivan Chloride [Moles/Vol] 101 mmol/L Normal 98-107 [facility] Comment on above: Performed By: #### B MP, LIVER, VALP #### [facility] [address] [place] [address] Dr. Gurmeet Ivan CO2 [Moles/Vol] 30.6 mmol/L Normal 21.0-32.0 [facility] Comment on above: Performed By: #### B MP, LIVER, VALP #### [facility] [address] [place] [address] Dr. Gurmeet Ivan Creatinine [Mass/Vol] 0.37 mg/dL Critically low 0.55-1.02 [facility] Comment on above: Performed By: #### B MP, LIVER, VALP #### [facility] [address] [place] [address] Dr. Gurmeet Ivan EGFR-AF KENYAN 247 mL/min/1.73m2 Normal >=60 [facility] Comment on above: Performed By: #### B MP, LIVER, VALP #### [facility] [address] [place] [address] Dr. Gurmeet Ivan EGFR-NON AF KENYAN 204 mL/min/1.73m2 Normal >=60 [facility] Comment on above: Performed By: #### B MP, LIVER, VALP #### [facility] [address] [address] [address] Gurmeet Ivan Glucose [Mass/Vol] 88 mg/dL Normal 74-106 [facility] Comment on above: Performed By: #### B MP, LIVER, VALP #### [facility] [address] [address] [address] Gurmeet Ivan Potassium [Moles/Vol] 4.4 mmol/L Normal 3.5-5.1 [facility] Comment on above: Performed By: #### B MP, LIVER, VALP #### [facility] [address] [place] [address] Dr. Gurmeet Ivan Sodium [Moles/Vol] 138 mmol/L Normal 136-145 [facility] Comment on above: Performed By: #### B MP, LIVER, VALP #### [facility] [address] [address] [address] Gurmeet Ivan Urea nitrogen [Mass/Vol] 17.0 mg/dL Normal 7.0-18.0 [facility] Comment on above: Performed By: #### B MP, LIVER, VALP #### [facility] [address] [place] [address] Dr. Gurmeet Ivan Urea nitrogen/Creatinine [Mass ratio] 45.9 mg/mg Normal [facility] Comment on above: Performed By: #### B MP, LIVER, VALP #### [facility] [address] [place] [address] Dr. Gurmeet Ivan [facility] SARS-CoV-2 (COVID-19) RNA AUREA+probe Ql (Unsp spec) Detected Abnormal NOT DETECTED [facility] Comment on above: Result Comment: This test is not yet approved or cleared by the [place] FDA. When there are no FDA-approved or cleared tests available, and other criteria are met, FDA can make tests available under an emergency access mechanism called an Emergency Use Authorization (EUA). The EUA for this test is supported by the [place] of Health and Human Service's declaration that [...] Performed By: #### C VDTB #### [facility] [address] [place] [address] Dr. Gurmeet Ivan INFLUENZA A AND B [facility] 05-28 INFLUANE SEE BELOW Normal [facility] Comment on above: Result Comment: Nega tive for Flu A protein angiten. Infection due to Flu A cannot be ruled out. Flu A angiten in the sample may be below the detection limit of the test. Performed By: #### I NFLUAB #### [facility] [address] [place] [address] Dr. Gurmeet Ivan INFLUBNEG SEE BELOW Normal [facility] Comment on above: Result Comment: Nega tive for Flu B protein antigen. Infection due to Flu B cannot be ruled out. Flu B antigen in the sample may be below the detection limit of the test. Performed By: #### I NFLUAB #### [facility] [address] [place] [address] Dr. Gurmeet Ivan INFLUENZA A AG Negative Normal NEGATIVE SEE COMMENT [facility] Comment on above: Performed By: #### I NFLUAB #### [facility] [address] [place] [address] Dr. Gurmeet Ivan INFLUENZA B AG Negative Normal NEGATIVE SEE COMMENT [facility] Comment on above: Performed By: #### I NFLUAB #### [facility] [address] [place] [address] Dr. Gurmeet Ivan XR CHEST 2 Von [...] by: SHAKIR MARTINEZ Date: 2022-05-28 10:53 Normal [facility] Vital Signs Date Time Vital Sign Value Performing Clinician Facility 08-14-2024 09:41-0400 Body mass index (BMI) [Ratio] 15.04 kg/m2 Bryan Valorie DO Work Phone: [facility] 08-14-2024 09:41-0400 Body weight 34.93 kg Bryan Valorie DO Work Phone: [facility] 08-14-2024 09:41-0400 Diastolic blood pressure 62 mm[Hg] Bryan Valorie DO Work Phone: [facility] 08-14-2024 09:41-0400 Heart rate 77 /min Bryan Valorie DO Work Phone: [facility] 08-14-2024 09:41-0400 SaO2% (BldA) [Mass fraction] 97 % Bryan Valorie DO Work Phone: [facility] 08-14-2024 09:41-0400 Systolic blood pressure 94 mm[Hg] Bryan Valorie DO Work Phone: [facility] 07-12-2024 08:04-0400 Body height 157.5 cm Ree Bolañoskenna [employer]ON[employer]comes IncorporatedSCALE BALANCER Work Phone: [facility] 07-12-2024 08:04-0400 Body mass index (BMI) [Ratio] 14.19 kg/m2 Ree De Leonkenna RAMON-SCALE BALANCER Work Phone: [facility] 07-12-2024 08:04-0400 Body temperature 98.29 [degF] Ree Bolaños MUSEUM SPECIALIST-SCALE BALANCER Work Phone: [facility] 07-12-2024 08:04-0400 Body weight 35.2 kg Ree Bolaños APRN-JENNIFER Work Phone: [facility] 07-12-2024 08:04-0400 Diastolic blood pressure 80 mm[Hg] Ree Bolaños APRN-SCALE BALANCER Work Phone: [facility] 07-12-2024 08:04-0400 Systolic blood pressure 106 mm[Hg] Ree Bolaños APRN-JENNIFER Work Phone: [facility] 01-11-2024 08:00-0400 Body height 154.9 cm Ree Bolaños APRN-JENNIFER Work Phone: [facility] 01-11-2024 08:00-0400 Body mass index (BMI) [Ratio] 13.79 kg/m2 Ree Bolaños APRN-JENNIFER Work Phone: [facility] 01-11-2024 08:00-0400 Body temperature 97.5 [degF] Ree Bolaños APRN-JENNIFER Work Phone: [facility] 01-11-2024 08:00-0400 Body weight 33.11 kg Ree Bolaños APRN-JENNIFER Work Phone: [facility] 01-11-2024 08:00-0400 Diastolic blood pressure 60 mm[Hg] Ree Bolaños APRN-JENNIFER Work Phone: [facility] 01-11-2024 08:00-0400 Heart rate 75 /min Ree Bolaños APRN-JENNIFER Work Phone: [facility] 01-11-2024 08:00-0400 Respiratory rate 18 /min Ree Bolaños APRN-SCALE BALANCER Work Phone: [facility] 01-11-2024 08:00-0400 SaO2% (BldA) [Mass fraction] 92 % Ree Bolaños APRN-SCALE BALANCER Work Phone: [facility] 01-11-2024 08:00-0400 Systolic blood pressure 90 mm[Hg] Ree Bolaños APRN-SCALE BALANCER Work Phone: [facility] 09-19-2023 14:49-0400 Body height 154.9 cm Ree Bolaños APRN-SCALE BALANCER Work Phone: [facility] 09-19-2023 14:49-0400 Body mass index (BMI) [Ratio] 13.77 kg/m2 Ree Bolaños APRN-SCALE BALANCER Work Phone: [facility] 09-19-2023 14:49-0400 Body temperature 97.3 [degF] Ree Bolaños APRN-SCALE BALANCER Work Phone: [facility] 09-19-2023 14:49-0400 Body weight 33.07 kg Ree Bolaños APRN-SCALE BALANCER Work Phone: [facility] 09-19-2023 14:49-0400 Diastolic blood pressure 70 mm[Hg] Ree Bolaños APRN-SCALE BALANCER Work Phone: [facility] 09-19-2023 14:49-0400 Heart rate 91 /min Ree Bolaños APRN-SCALE BALANCER Work Phone: [facility] 09-19-2023 14:49-0400 Respiratory rate 18 /min Ree Bolaños APRN-SCALE BALANCER Work Phone: [facility] 09-19-2023 14:49-0400 SaO2% (BldA) [Mass fraction] 92 % Ree Bolaños APRN-SCALE BALANCER Work Phone: [facility] 09-19-2023 14:49-0400 Systolic blood pressure 108 mm[Hg] Ree Bolaños MUSEUM SPECIALIST-SCALE BALANCER Work Phone: [facility] 05-31-2023 07:07-0500 Body height 154.9 cm Ree Bolaños APRN-SCALE BALANCER Work Phone: [facility] 05-31-2023 07:07-0500 Body temperature 97.39 [degF] Ree Bolaños APRN-SCALE BALANCER Work Phone: [employer] 05-31-2023 07:07-0500 Diastolic blood pressure 68 mm[Hg] Ree Bolaños APRN-SCALE BALANCER Work Phone: [employer] 05-31-2023 07:07-0500 Heart rate 76 /min Ree Bolaños APRNOutcomes IncorporatedSCALE BALANCER Work Phone: [employer] 05-31-2023 07:07-0500 SaO2% (BldA) [Mass fraction] 97 % Reeearnestine Bolaños [employer]act[employer] Work Phone: [facility] 05-31-2023 07:07-0500 Systolic blood pressure 100 mm[Hg] Reeearnestine Bolaños [employer] Work Phone: [facility] 04-14-2023 14:04-0500 Body height 154.9 cm [employer] Work Phone: [facility] [employer] 04-14-2023 14:04-0500 Body mass index (BMI) [Ratio] 12.83 kg/m2 [employer] Work Phone: [facility] 04-14-2023 14:04-0500 Body weight 30.8 kg [employer] Work Phone: [employer] Encounters Encounter Date Encounter Type Care Provider Facility Start: 08-14-2024 End: 08-14-2024 [employer] flowsheet Bryantuyet Eugene DO Work Phone: [facility] Start: 08-14-2024 End: 08-14-2024 [employer] flowsheet Bryan Valorie DO Work Phone: [facility] Start: 08-14-2024 End: 08-14-2024 Office outpatient visit 25 minutes Bryan Eugene DO Work Phone: [facility] Comment on above: Seizure (CMS/HCC) (P rimary Dx); Medication monitoring encounter; Motor delay; Spastic quadriplegic cerebral palsy (CMS/HCC); Mood disorder (CMS/HCC); Cognitive developmental delay Start: 08-14-2024 End: 08-14-2024 ambulatory BRYAN EUGENE Not Available Start: 07-12-2024 End: 07-12-2024 ambulatory [facility] Start: 07-12-2024 Encounter for genera l adult medical examination without abnormal findings [facility] Start: 07-12-2024 End: 07-12-2024 Patient encounter procedure [facility] MUSEUM SPECIALIST-SCALE BALANCER Work Phone: [facility] Start: 07-12-2024 End: 07-12-2024 Periodic preventive med est patient 18-39 yrs Ree Bolaños MUSEUM SPECIALIST-SCALE BALANCER [facility] Phone: [facility] Comment on above: Annual physical exam (Primary Dx); Blood tests for routine general physical examination; Vitamin D deficiency; Salivation excessive; Chronic constipation Start: 07-12-2024 End: 07-12-[address] [facility] M[facility]UM SPECIALIST-SCALE BALANCER Work Phone: [facility] Work Phone: Start: 07-12-2024 End: 07-12-2024 ambulatory [facility] Start: 07-12-2024 Encounter for genera l adult medical examination without abnormal findings [facility] Start: 04-19-2024 End: 04-20-2024 Patient encounter procedure April Sunshinebret DDS Work Phone: [facility] Start: 04-19-2024 End: 04-20-2024 ambulatory UNKNOWN PROVIDER Facility:[facility] Start: 01-11-2024 End: 01-11-2024 Office outpatient visit 15 minutes Ree Bolaños MUSEUM SPECIALIST-SCALE BALANCER Work Phone: [facility] Comment on above: Seizure disorder (CM S-HCC) (Primary Dx); Salivation excessive Start: 01-11-2024 End: 01-11-2024 ambulatory [facility] Start: 01-04-2024 End: 01-04-2024 ambulatory BRYAN EUGENE Not Available Start: 01-04-2024 End: 01-04-2024 Office outpatient visit 25 minutes Bryan Eugene DO Work Phone: [employer] Comment on above: Seizure disorder (CM S/HCC) (Primary Dx); Spastic quadriplegic cerebral palsy (CMS/HCC); Cognitive developmental delay; Motor delay; Mood disorder (CMS/HCC); Medication monitoring encounter Start: 01-04-2024 End: 01-04-2024 Bamboo flowsheet Bryan Eugene DO Work Phone: [employer] [facility] Start: 01-04-2024 End: 01-04-2024 Bamboo flowsheet Bryan Eugene DO Work Phone: [employer] [facility] Start: 09-19-2023 End: 09-19-2023 Office outpatient visit 15 minutes Ree Bolaños MUSEUM SPECIALIST-SCALE BALANCER Work Phone: [facility] Comment on above: Acute cystitis witho ut hematuria (Primary Dx) Start: 09-19-2023 End: 09-19-2023 ambulatory [facility] Start: 09-12-2023 End: 09-12-2023 Orders Only Ree Bolaños MUSEUM SPECIALIST-SCALE BALANCER Work Phone: [facility] Start: 09-09-2023 End: 09-09-2023 Telephone encounter Ree Bolaños MUSEUM SPECIALIST-SCALE BALANCER Work Phone: [facility] Start: 09-06-2023 End: 09-06-2023 Orders Only Ree Bolaños MUSEUM SPECIALIST-SCALE BALANCER Work Phone: [facility] Comment on above: Other cerebral palsy (CMS-HCC) (Primary Dx); Developmental disability Start: 05-31-2023 End: 05-31-2023 Office outpatient visit 25 minutes Ree Bolaños MUSEUM SPECIALIST-SCALE BALANCER Work Phone: [facility] Comment on above: Benign essential HTN (Primary Dx); Other iron deficiency anemia; Elevated liver enzymes; Salivation excessive; Seizure disorder ([facility]-HCC) Start: 05-21-2023 Refill Ree pierson MUSEUM SPECIALIST-SCALE BALANCER Work Phone: [facility] Comment on above: Benign essential HTN Start: 05-15-2023 End: 05-16-2023 Emergency department patient visit [facility] Start: 04-14-2023 End: 04-14-2023 Office outpatient visit 15 minutes Kimberly GROSSMAN Work Phone: [facility] Comment on above: Calculus of gallblad birgit without cholecystitis without obstruction (Primary Dx) Start: 07-08-2022 End: 07-09-[address] BRYAN EUGENE Facility: Start: 05-28-2022 End: 05-28-[address] KARRI NUNN . Facility: Procedures Date Procedure Procedure Detail Performing Clinician Start: 07-12-2024 Adult depression screening assessment Ree Bolaños MUSEUM SPECIALIST-SCALE BALANCER Work Phone: Start: 09-19-2023 Follow-up visit Follow-up REE BOLAÑOS Start: 09-19-2023 Adult depression screening assessment Ree Bolaños MUSEUM SPECIALIST-SCALE BALANCER Work Phone: Start: 09-11-2023 Ct abdomen & pelvis w/o contrast material Scanning Provider External Start: 05-31-2023 Adult depression screening assessment Ree Bolaños MUSEUM SPECIALIST-SCALE BALANCER Work Phone: Start: 02-08-2023 Adult depression screening assessment Kimberly GROSSMAN Work Phone: [facility] Treatment Date Care Activity Detail Author Start: 2041 Shingles (RZV) Vacci ne (1 of 2) Shingles (RZV) Vaccine (1 of 2) [facility] Start: 08-13-2025 End: 08-13-2025 Patient encounter procedure 08/13/2025 2:15 PM EDT Office Visit JAMILA TRUJILLO [address] [facility] [place] [phone] Bryan Eugene DO [address] [place] [address] JAMILA TRUJILLO Start: 07-12-2025 Adult BMI Screening Adult BMI Screen ing [facility] Start: 07-12-2025 Depression Screening Depression Scre ening [facility] Start: 07-12-2025 Tobacco Screening Tobacco Screening [facility] Start: 04-18-2025 End: 04-18-2025 Patient encounter procedure 04/18/2025 10:00 AM EST Procedure Visit [facility] [address] [place] [address] April Concepcion, DDS [address] [place] [address] [facility] Start: 01-15-2025 End: 01-15-2025 Patient encounter procedure 01/15/2025 8:00 AM EDT Office [facility] - Family [facility] [address] [place] [address] Ree Bolaños, MUSEUM SPECIALIST-SCALE BALANCER [address] [place] [address] [facility] Start: 01-10-2025 Adult BMI Screening Adult BMI Screen ing [facility] Start: 01-10-2025 Tobacco Screening Tobacco Screening [facility] Start: 12-10-2024 Influenza vaccination Influenza Vacc ine [facility] Start: 09-18-2024 Adult BMI Follow Up Plan Adult BMI Follow Up Plan [facility] Start: 09-18-2024 Adult BMI Screening Adult BMI Screen ing [facility] Start: 09-18-2024 Depression Screening Depression Scre ening [facility] Start: 09-18-2024 Tobacco Screening Tobacco Screening [facility] Start: 08-14-2024 End: 08-14-2025 Valproic acid level, total Valproic acid level, total Lab Routine Seizure (CMS/HCC) Expected: 08/14/2024 (Approximate), Expires: 08/14/2025 [facility] Work Phone: Comment on above: Expected: 08/14/2024 (Approximate), Expires: 08/14/2025 Start: 08-14-2024 End: 08-14-2024 Patient encounter procedure [facility] [address] Comment on above: Arrived Start: 07-12-2024 End: 07-12-2024 Patient encounter procedure 07/12/2024 8:00 AM EDT Office Visit [facility] [address] [place] [address] Ree Bolaños, MUSEUM SPECIALIST-SCALE BALANCER [address] [place] [address] [facility] Start: 05-31-2024 Depression Screening Depression Scre [facility] Start: 05-31-2024 Tobacco Screening Tobacco Screening [facility] Start: 05-15-2024 Adult BMI Screening Adult BMI Screen ing [facility] Start: 05-15-2024 Tobacco Screening Tobacco Screening [facility] Start: 03-31-2024 Adult BMI Screening Adult BMI Screen ing [facility] Start: 03-31-2024 Tobacco Screening Tobacco Screening [facility] Start: 02-09-2024 Depression Screening Depression Scre ening [facility] Start: 01-11-2024 End: 01-11-2024 Patient encounter procedure 01/11/2024 8:00 AM EDT Office Visit [facility] [address] [place] [address] Ree Bolaños, MUSEUM SPECIALIST-SCALE BALANCER [address] [place] [address] [facility] - [facility] Start: 12-11-2023 COVID-19 Vaccine ( season) COVID-19 Vaccine ( season) [facility] Start: 12-11-2023 Influenza vaccination Influenza Vacc ine [facility] Start: 11-23-2023 Adult BMI Follow Up Plan Adult BMI Follow Up Plan [facility] Start: 11-01-2023 End: 11-01-2023 Patient encounter procedure 11/01/2023 7:00 AM EDT Office Visit [facility] - Family Medicine [address] [place] [address] Ree Bolaños, MUSEUM SPECIALIST-SCALE BALANCER [address] [place] [address] [facility] - [facility] Start: 09-19-2023 End: 09-19-2023 Patient encounter procedure 09/19/2023 2:40 PM EDT Office Visit [facility] - Family Medicine [address] [place] [address] Ree Bolaños, MUSEUM SPECIALIST-SCALE BALANCER [address] [place] [address] [facility] - [facility] Start: 05-31-2023 End: 05-31-2023 Patient encounter procedure 05/31/2023 7:00 AM EST Office Visit [facility] - Family Medicine [address] [place] [address] Ree Bolaños, MUSEUM SPECIALIST-SCALE BALANCER [address] [place] [address] [facility] Start: 12-10-2022 Influenza vaccination Influenza Vacc ine [facility] Start: 2018 HPV Vaccine (optiona l start 27-45 years) HPV Vaccine (optional start 27-45 years) [facility] Start: 2012 Screening for malign ant neoplasm of cervix Pap Smear [facility] Start: 2010 DTaP,Tdap and Td Vaccines (1 - Tdap) DTaP,Tdap and Td Vaccines (1 - Tdap) [facility] Start: 2010 Hepatitis A (HAV) Vaccine (optional start 19+ years) Hepatitis A (HAV) Vaccine (optional start 19+ years) [facility] Start: 2010 Hepatitis B vaccination Hepati tis B (HBV) Vaccine (1 of 3 - 19+ 3-dose series) [facility] Start: 2009 Hepatitis C screening Hepatitis C An tibody [facility] Start: 2009 Tdap Booster Tdap Booster [facility] Start: 2006 HIV screening HIV Test [facility] End: 07-12-2025 CBC W Auto Differential panel - Blood CBC auto differential Lab Routine Blood tests for routine general physical examination 1 Occurrences starting 07/12/2024 until 07/12/2025 [facility] Comment on above: 1 Occurrences starti ng 07/12/2024 until 07/12/2025 End: 07-12-2025 Comprehensive metabolic 2000 panel - Serum or Plasma Comprehensive metabolic panel Lab Routine Blood tests for routine general physical examination 1 Occurrences starting 07/12/2024 until 07/12/2025 [facility] Comment on above: 1 Occurrences starti ng 07/12/2024 until 07/12/2025 End: 05-31-2024 Hepatic function 2000 panel - Serum or Plasma Hepatic function panel Lab Routine Elevated liver enzymes 1 Occurrences starting 05/31/2023 until 05/31/2024 [facility] Comment on above: 1 Occurrences starti ng 05/31/2023 until 05/31/2024 End: 05-31-2024 Iron and TIBC Iron and TIBC Lab Routine Other iron deficiency anemia 1 Occurrences starting 05/31/2023 until 05/31/2024 [facility] Work Phone: Comment on above: 1 Occurrences starti ng 05/31/2023 until 05/31/2024 End: 07-12-2025 Lipid 1996 panel - Serum or Plasma Lipid profile Lab Routine Blood tests for routine general physical examination 1 Occurrences starting 07/12/2024 until 07/12/2025 [facility] Comment on above: 1 Occurrences starti ng 07/12/2024 until 07/12/2025 End: 07-12-2025 Thyrotropin [Units/volume] in Serum or Plasma TSH Lab Routine Blood tests for routine general physical examination 1 Occurrences starting 07/12/2024 until 07/12/2025 [facility] Comment on above: 1 Occurrences starti ng 07/12/2024 until 07/12/2025 End: 07-13-2025 Vitamin D 25 hydroxy Vitamin D 25 hydroxy Lab Routine Vitamin D deficiency 1 Occurrences starting 07/12/2024 until 07/13/2025 [facility] Work Phone: Comment on above: 1 Occurrences starti ng 07/12/2024 until 07/13/2025 Payers Date Payer Category Payer Dental --Stand Alone DENTAL-MEDI CAID HMO [id number] 2022 Medicaid [id number] 2022 Medicaid [id number] 1991 Unknown [id number] 93 1991 Unknown [id number] 93 1991 Unknown [id number] 286 1991 Unknown [id number] 286 1991 Unknown [id number] 32 1991 Unknown [id number] 286 1991 Unknown [id number] 286 1991 Unknown [id number] 286 1991 Unknown [id number] 286 1991 Unknown [id number] 259 1991 Unknown [id number] 259 Social History Date Type Detail Facility Start: 11-22-2022 End: 08-16-2023 Tobacco smoking status GAIS Never smoked tobacco [facility] Start: 11-22-2022 End: 08-16-2023 Tobacco use and exposure Smokeless tobacco non-user [facility] Start: 01-04-2024 End: 08-14-2024 Alcoholic beverage intake Lifetime non-drinker (finding) [facility] Start: 01-04-2024 End: 08-14-2024 History of Social function [facility] Start: 01-04-2024 End: 08-14-2024 Tobacco use panel [facility] Start: 1990 Sex assigned at Not on file [facility] Start: 04-14-2023 End: 07-12-2024 Alcohol intake Current non-drinker of alcohol (finding) [facility] How hard is it for y ou to pay for the very basics like food, housing, medical care, and heating Not hard at all [facility] Start: 1990 Sex Assigned At Female [facility] Start: 10-29-2022 Gender identity Identifies as female gender (finding) [facility] Start: 10-29-2022 Sexual orientation Heterosexual (finding) [facility] Start: 11-14-2014 End: 08-17-2023 Sex Female (finding) [facility] Tobacco smoking stat NHIS Tobacco smoking consumption unknown [facility] Goals Date Patient Goal Desired Activity /State Personal health goal Comment on above: Formatting of this n ote might be different from the original. Evaluation of progress towards goal: Current discharge plan is home with 24 hour caregiver support from parents. - Cydney Jacobsen RN 10/28/22 2:45 PM Clinical Notes 04-14-2023 to 08-14-2024 Bryan Eugene DO - 08/14/2024 9:30 AM JUANITA March - 07/12/2024 8:00 AM April Auguste, JEANCARLOSS - 04/19/2024 9:32 AM JUANITA Currie - 01/11/2024 8:00 AM EDT Note Date & Type Note Facility 08-14-2024 History of Presen t illness Narrative Images from the original note were not included. Chief Complaint Patient presents with Seizures Subjective Nellie Wilson, 34 y.o., female seen today for seizure disorder. Her father states that she is doing well and overall health has improved. Her mood is better. He is not aware of any seizures for the past couple of months. It took a while forher to get healhty and get back to her normal state of health. She is in a better place physically and mentally. She is doing well. She had a seizure once every couple of months and they are less than 20 seconds. She will take a nap and do well. She tolerated the increased depakote. She has not had any signs of illness. No signs of UTI. Past Medical History: Diagnosis Date Cerebral palsy Seizures (CMS/HCC) Past Surgical History: Procedure Laterality Date CHOLECYSTECTOMY IR CHEST DRAIN PLACEMENT 11/02/2022 IR CHEST DRAIN PLACEMENT 11/02/2022 No family history on file. Social History Tobacco Use Smoking status: Never Smokeless tobacco: Never Substance Use Topics Alcohol use: Never Allergies: Sulfa antibiotics General: No fever or chills HEENT: No nasal congestion or runny nose Pulmonary: No shortness of breath or cough Cardiovascular: No chest pain or palpitations GI: No nausea or vomiting : No dysuria or hematuria Musculoskeletal: No new aches or pains or muscle weakness Infectious: no recurrent fevers or infections Dermatologic: No rashes or skin lesions Neurologic: No new headaches or dizziness Vitals: 08/14/24 0941 BP: 94/62 Pulse: 77 SpO2: 97% Body mass index is 15.04 kg/m . Weight: 77 lb Neurologic exam: Mental status: Awake, alert abnormal arm movements MRDD with CP inattentive Fund of knowledge : MRDD HEENT: dysmorphic Cranial nerves: CN II: + blink to threat bilaterall CN III, IV, : pupils equal round and reactive to light. Extraocular movements intact appear intact No ptosis present. CN V: cannot fully assess. CN VII: mushtaq facial movements CN VIII: cannot fully assess CN IX and X: Palate elevates symmetrically. CN XI: pt will not perform CN XII: Tongue is midline without atrophy or fasciculation. 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 T at the last visit the patient was having increased seizure activity. She had been ill. We increased her Depakote slightly. Since that time she has been doing much better. She has a small event once every couple of months. She is doing much better in her mood etc.. It took awhile for her recover from her pneumonia her cholecystitis with her gallbladder removal. But overall she is doing much much better and back to her normal self. She had lab work done which her CBC BMP were relatively normal. She needs a repeat Depakote level. She does not crawl on the floor since her scoliosis surgery. She has some mood disorder that is actually doing very well at this time Parents are but they are both involved in her life and have joint custody. Plan Cont the Depakote to 5 mL in the morning and 7.5 ml at bedtime Continue the Keppra bid Labs were reviewed but will get a depakote level Monitor for any worsening seizures Call with any new problems The diagnosis was all discussed with the patient. All questions were answered and they agreed with the treatment plan. Patient will call if there are any new issues or questions. Pt has been fully educated on their diagnosis, treatment options, follow up plan, and return instructions Return to clinic: 3 months documented in this encounter [facility] 07-12-2024 History of Presen t illness Narrative Images from the original note were not included. [address] [facility] [address] SUBJECTIVE: Patient ID: Nellie Wilson is a 34 y.o. female. Chief Complaint Patient presents with wellness Patient is accompanied by her father, whom she resides with. Shared guardianship with her mother. Severe cognative and intellectual disability. Cerebral palsy. Total care per parents. Is incontinent of bowel and bladder. Is NPO. Tube feedings per peg tube. Father reports Nellie is doing very well. Attends day program during the week. Offers no concerns today. The following portions of the patient's history were reviewed and updated as appropriate: allergies, current medications, past family history, past medical history, past social history, past surgical history and problem list. Past Surgical History: Procedure Laterality Date ABDOMINAL SURGERY BACK SURGERY BRONCHOSCOPY W/ WASHOUT N/A 10/28/2022 Performed by Jordin Zavala MD at [facility] LAPAROSCOPIC CHOLECYSTECTOMY N/A 03/31/2023 Performed by Carl Rogers MD at [facility] MYRINGOTOMY W/ TUBES PLACEMENT PEG TUBE REPLACEMENT; 20-22FR N/A 04/12/2016 Performed by Jd Small DO at [facility] THORAC[facility] 10/29/2022 Past Medical History: Diagnosis Date ABBE (acute kidney injury) 10/29/2022 Cerebral palsy ([facility] Difficult intravenous access HL (hearing loss) moderate loss Pneumonia 10/28/2022 Salivation excessive 12/01/2016 Seizures ([facility]) Sinusitis, chronic Upper respiratory infection UTI (urinary tract infection) 09/11/2023 There is no immunization history on file for this patient. REVIEW OF SYSTEMS: Review of Systems Constitutional: Negative for chills and fever. HENT: Negative. Eyes: Negative for visual disturbance. Respiratory: Negative for chest tightness and shortness of breath. Cardiovascular: Negative for chest pain and palpitations. Gastrointestinal: Negative. Endocrine: Negative. Genitourinary: Negative for menstrual problem and pelvic pain. Musculoskeletal: Negative. Skin: Negative. Allergic/Immunologic: Negative. Neurological: Negative for syncope and facial asymmetry. Hematological: Does not bruise/bleed easily. Psychiatric/Behavioral: Negative. PHYSICAL EXAMINATION: Vitals: 07/12/24 0804 BP: 106/80 BP Site: Right Arm BP Postition: Sitting BP CUFF SIZE: Other Temp: 36.8 C (98.3 F) TempSrc: Tympanic Weight: 35.2 kg (77 lb 9.6 oz) Height: 157.5 cm (5' 2.01 ) Physical Exam Vitals and nursing note [...] mass. Tenderness: There is no abdominal tenderness. Musculoskeletal: General: Normal range of motion. Cervical back: Normal range of motion and neck supple. Lymphadenopathy: Cervical: No cervical adenopathy. Skin: General: Skin is warm and dry. Capillary Refill: Capillary refill takes less than 2 seconds. Neurological: Mental Status: She is alert and oriented to person, place, and time. Deep Tendon Reflexes: Reflexes are normal and symmetric. Psychiatric: Mood and Affect: Mood normal. Behavior: Behavior normal. Thought Content: Thought content normal. Judgment: Judgment normal. ASSESSMENT/PLAN: Nellie was seen today for wellness. Diagnoses and all orders for this visit: Annual physical exam Blood tests for routine general physical examination - Comprehensive metabolic panel; Future - CBC auto differential; Future - Lipid profile; Future - TSH; Future Vitamin D deficiency - Vitamin D 25 hydroxy; Future Salivation excessive - glycopyrrolate (ROBINUL) 2 MG tablet; give 1 tablet PER TUBE every morning and BEFORE BEDTIME Chronic constipation - polyethylene glycol (GLYCOLAX) 17 gram packet; Take 17 g by mouth in the morning. Wellness labs drawn in office today Chronic constipation. Father reports controlled with Miralax Seizure disorder. Stable. Is monitored by neurology. No witnessed seizures. Salivation, excessive. No longer occurring with Robinul. ALL QUESTIONS ANSWERED Total time spent was 30 minutes: Preparing to see the patient (e.g., review of tests) Obtaining and/or reviewing separately obtained history Performing a medically appropriate examination and/or evaluation Counseling and educating the patient/family/caregiver Ordering medications, tests, or procedures Follow-up: 6 months Developmentally disabled. Seizure disorder. JUANITA Zapien 07/12/24 1047 documented in this encounter [facility] 04-19-2024 History of Presen t illness Narrative ----- , April 19, 2024 at 12:48:58 PM ----- ----- Provider: Resident Anju -- Clinic: [place] [address] ----- INITIAL/COMPREHENSIVE EXAM Patient presents for an Initial Examination with fatherJose Suárez is on a wheelchair. Reviewed patient's medical history. Patient has a history of: . Cerebral palsy, thrombocytosis. No contraindications, patient is ready for treatment. Patient's father explained that patient usually get prophy treatment done in a nearby clinic to their home which is an hour and a half from here. Father said they were referred to [facility] for xrays and a comprehensive exam. Pain Scale: 0/10 Radiographs taken today were: 6 PAs Clinical and radiographic exam shows the following findings and treatment plans: 1. No dental caries noted on xrays. Patient will continue to receive prophy treatment at local dental clinic and will be seen again by us for a new comprehensive exam in one year. Completed current status of dentition on the charting. Went over needs and treatment plan options with the patient. OHI were discussed with the patient. Written Instructions/AVS were also handed to the patient. Pt Concern: Full Exam was successfully done. Patient consented to the treatment plan. PRIOR: Not needed NOTE: Patient was very cooperative but does not easily follow instructions so xrays were taken by holding sensor in mouth. Legal Guardian (Father) Mathieu Wilson Next Visit: Comprehensive exam ----- Signed on April at 1:26:14 PM ----- ----- Provider: Carmen Paige DDS -- [id number] ----- documented in this encounter [facility] 01-11-2024 History of Presen t illness Narrative Images from the original note were not included. [address] [place] [address] SUBJECTIVE: Patient ID: Nellie Wilson is a 33 y.o. female. Patient is accompanied by mom today. Cognative and intellectual delay. She resides with parents who care for her. Mom reports she had several possible seizures this month. Occurred at day program. Went to the neurologist, [facility] recently. Depakote was increased. Overall, mom reports patient is doing well. The following portions of the patient's history were reviewed and updated as appropriate: allergies, current medications, past family history, past medical history, past social history, past surgical history and problem list. Past Surgical History: Procedure Laterality Date ABDOMINAL SURGERY BACK SURGERY BRONCHOSCOPY W/ WASHOUT N/A 10/28/2022 Performed by Jordin Zavala MD at [facility] LAPAROSCOPIC CHOLECYSTECTOMY N/A 03/31/2023 Performed by Carl Rogers MD at [facility] MYRINGOTOMY W/ TUBES PLACEMENT PEG TUBE REPLACEMENT; 20-22FR N/A 04/12/2016 Performed by Jd Small DO at [facility] 10/29/2022 Past Medical History: Diagnosis Date ABBE (acute kidney injury) ([facility]) 10/29/2022 Cerebral palsy [place] Difficult intravenous access HL (hearing loss) moderate loss Pneumonia 10/28/2022 Salivation excessive 12/01/2016 Seizures ([facility] Sinusitis, chronic Upper respiratory infection UTI (urinary tract infection) 09/11/2023 There is no immunization history on file for this patient. REVIEW OF SYSTEMS: Review of Systems Reason unable to perform ROS: Mom answered ROS. Constitutional: Negative for chills and fever. HENT: Negative. Eyes: Negative for visual disturbance. Respiratory: Negative for chest tightness and shortness of breath. Cardiovascular: Negative for chest pain and palpitations. Gastrointestinal: Negative. Endocrine: Negative. Genitourinary: Negative for menstrual problem and pelvic pain. Musculoskeletal: Negative. Skin: Negative. Allergic/Immunologic: Negative. Neurological: Negative for syncope and facial asymmetry. Hematological: Does not bruise/bleed easily. Psychiatric/Behavioral: Negative. PHYSICAL EXAMINATION: Vitals: 01/11/24 0800 BP: 90/60 BP Site: Right Arm BP Postition: Sitting Pulse: 75 Resp: 18 Temp: 36.4 C (97.5 F) TempSrc: Tympanic SpO2: 92% Weight: 33.1 kg (73 lb) Height: 154.9 cm (5' 1 ) Physical [...] mass. Tenderness: There is no abdominal tenderness. Musculoskeletal: General: Normal range of motion. Cervical back: Normal range of motion and neck supple. Lymphadenopathy: Cervical: No cervical adenopathy. Skin: General: Skin is warm and dry. Capillary Refill: Capillary refill takes less than 2 seconds. Neurological: Mental Status: She is alert and oriented to person, place, and time. Deep Tendon Reflexes: Reflexes are normal and symmetric. Psychiatric: Mood and Affect: Mood normal. Behavior: Behavior normal. Thought Content: Thought content normal. Judgment: Judgment normal. ASSESSMENT/PLAN: Nellie was seen today for cerbal palsey. Diagnoses and all orders for this visit: Salivation excessive - glycopyrrolate (ROBINUL) 2 MG tablet; give 1 tablet PER TUBE every morning and BEFORE BEDTIME Seizure disorder ([facility]) - levETIRAcetam (KEPPRA) 100 mg/mL solution; Administer 5 mL (500 mg total) per tube in the morning and 5 mL (500 mg total) before bedtime. 100MG/ML 5 ml q12. Continue Keppra and Depakene as directed by neurologist. Continue to monitor seizures. If reoccurs, please call neurologist for appointment. Salivation is controlled with Robinul. ALL QUESTIONS ANSWERED Total time spent was 25 minutes: Preparing to see the patient (e.g., review of tests) Obtaining and/or reviewing separately obtained history Performing a medically appropriate examination and/or evaluation Counseling and educating the patient/family/caregiver Ordering medications, tests, or procedures Follow-up: 6 months JUANITA Zapien 01/11/24 0829 [facility] History of Presen t illness Narrative Images from the original note were not included. Chief Complaint Patient presents with Seizures Subjective Nellie Wilson, 33 y.o., female seen today for increased seizures, her father got a call from her school and states they reported a seizure lasting 58 seconds. The school states she had convulsions, he has never witnessed this. Generally she stares off. She did have a seizure at home that lasted about 35 seconds without convulsions. She will have an event about 2 per week. She has not had any signs of illness. No odor to her urine or anything to suggest UTI Past Medical History: Diagnosis Date Cerebral palsy ([facility]/HCC) Seizures (CMS/HCC) Past Surgical History: Procedure Laterality Date CHOLECYSTECTOMY IR CHEST DRAIN PLACEMENT 11/02/2022 IR CHEST DRAIN PLACEMENT 11/02/2022 No family history on file. Social History Tobacco Use Smoking status: Never Smokeless tobacco: Never Substance Use Topics Alcohol use: Never Allergies: Sulfa antibiotics General: No fever or chills HEENT: No nasal congestion or runny nose Pulmonary: No shortness of breath or cough Cardiovascular: No chest pain or palpitations GI: No nausea or vomiting : No dysuria or hematuria Musculoskeletal: No new aches or pains or muscle weakness Infectious: no recurrent fevers or infections Dermatologic: No rashes or skin lesions Neurologic: No new headaches or dizziness There were no vitals filed for this visit. There is no height or weight on file to calculate BMI. Neurologic exam: Mental status: Awake, alert abnormal arm movements MRDD with CP inattentive Fund of knowledge : MRDD HEENT: dysmorphic Cranial nerves: CN II: + blink to threat bilaterall CN III, IV, : pupils equal round and reactive to light. Extraocular movements intact appear intact No ptosis present. CN V: cannot fully assess. CN VII: mushtaq facial movements CN VIII: cannot fully assess CN IX and X: Palate elevates symmetrically. CN XI: pt will not perform CN XII: Tongue is midline without atrophy or fasciculation. 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 The patient has had a slight increase in seizure activity with now having 2 a week. She actually had a tonic-clonic event which she does not usually have. Her Depakote level was 57. Her Keppra level was 11. Her other labs showed some minor variations but nothing overly remarkable. At this time we will go ahead and increase her Depakote at bedtime from 5 mL to 7.5 mL to increase the level a little bit and see if that helps shut down some of the seizures. We certainly have room to go higher and we have room to go higher on her Keppra. Father denies any signs of infection. He will keep an eye out for any signs of UTI such as odor discoloration of the urine. That he would report to their PCP. She does not crawl on the floor since her scoliosis surgery. She has some mood disorder but it is stable at this time. Dad is retired and can be at home more. Parents are but they are both involved in her life and have joint custody. He will call if she has more seizures or did not tolerate the increase in medication.. Plan Increase the Depakote to 5 mL in the morning and 7.5 ml at bedtime Continue the Keppra bid Labs were reviewed Monitor for any worsening seizures Call with any new problems The diagnosis was all discussed with the patient. All questions were answered and they agreed with the treatment plan. Patient will call if there are any new issues or questions. Pt has been fully educated on their diagnosis, treatment options, follow up plan, and return instructions Return to clinic: 3 months documented in this encounter [facility] 09-19-2023 History of Presen t illness Narrative Images from the original note were not included. [address] [facility] [address] SUBJECTIVE: Patient ID: Nellie Wilson is a 33 y.o. female. Chief Complaint Patient presents with Follow-up Uti, Presents for hospital follow up Was admitted at [facility] for diagnosis of UTI. Her father who is one of her primary care givers relates she is back to her self at this time. States onset of illness started on a Tuesday. She was taken to the ER and she was discharged. Was informed to return to ER if temperature elevated. She develop a temperature Tuesday, she was subsequently admitted with diagnosis of UTI with possible sepsis. Stayed one night. Follow-up Pertinent negatives include no chest pain, chills or fever. The following portions of the patient's history were reviewed and updated as appropriate: allergies, current medications, past family history, past medical history, past social history, past surgical history and problem list. Past Surgical History: Procedure Laterality Date ABDOMINAL SURGERY BACK SURGERY BRONCHOSCOPY W/ WASHOUT N/A 10/28/2022 Performed by Jordin Zavala MD at [facility] LAPAR[facility]COP[facility] CHOLECYSTECTOMY N/A 03/31/2023 Performed by Carl Rogers MD at [facility] MYRINGOTOMY W/ TUBES PLACEMENT PEG TUBE REPLACEMENT; 20-22FR N/A 04/12/2016 Performed by Jd Small DO at [facility] 10/29/2022 Past Medical History: Diagnosis Date ABBE (acute kidney injury) ([facility]) 10/29/2022 Cerebral palsy ([facility] Difficult intravenous access HL (hearing loss) moderate loss Pneumonia 10/28/2022 Salivation excessive 12/01/2016 Seizures ([facility]) Sinusitis, chronic Upper respiratory infection UTI (urinary tract infection) 09/11/2023 There is no immunization history on file for this patient. REVIEW OF SYSTEMS: Review of Systems Reason unable to perform ROS: Father completes ROS due to cognative and intellectual delay. Constitutional: Negative for chills and fever. HENT: Negative. Eyes: Negative for visual disturbance. Respiratory: Negative for chest tightness and shortness of breath. Cardiovascular: Negative for chest pain and palpitations. Gastrointestinal: Negative. Endocrine: Negative. Genitourinary: Negative for menstrual problem and pelvic pain. Musculoskeletal: Negative. Skin: Negative. Allergic/Immunologic: Negative. Neurological: Negative for syncope and facial asymmetry. Hematological: Does not bruise/bleed easily. Psychiatric/Behavioral: Negative. PHYSICAL EXAMINATION: Vitals: 09/19/23 1449 BP: 108/70 BP Site: Left Arm BP Postition: Sitting Pulse: 91 Resp: 18 Temp: 36.3 C (97.3 F) TempSrc: Temporal SpO2: 92% Weight: 33.1 kg (72 lb 14.4 oz) Height: 154.9 cm (5' 1 ) Patient noted to have low BMI and the following intervention(s) were applied: weight gain advised. Physical Exam Vitals and nursing note reviewed. [...] mass. Tenderness: There is no abdominal tenderness. Musculoskeletal: General: Normal range of motion. Cervical back: Normal range of motion and neck supple. Lymphadenopathy: Cervical: No cervical adenopathy. Skin: General: Skin is warm and dry. Capillary Refill: Capillary refill takes less than 2 seconds. Neurological: Mental Status: She is alert and oriented to person, place, and time. Deep Tendon Reflexes: Reflexes are normal and symmetric. Psychiatric: Mood and Affect: Mood normal. Behavior: Behavior normal. Thought Content: Thought content normal. Judgment: Judgment normal. ASSESSMENT/PLAN: Nellie was seen today for follow-up. Diagnoses and all orders for this visit: Acute cystitis without hematuria Has finished Cefdinir. Father reports behaviors and disposition is back to her normal has returned back to day program as her usual routine. Reviewed [facility] ER notes and admission progress notes. ALL QUESTIONS ANSWERED Total time spent was 25 minutes: Preparing to see the patient (e.g., review of tests) Obtaining and/or reviewing separately obtained history Performing a medically appropriate examination and/or evaluation Counseling and educating the patient/family/caregiver Follow-up: Move October appointment to first week of January. JUANITA Zapien 09/19/23 1737 documented in this encounter [facility] 09-09-2023 Miscellaneous Notes Formattin g of this note might be different from the original. Release for G-Tube/ J Tube picked up by family. [facility] Telephone encount er Note Release for G-Tube/ J Tube picked up by family. A Fourth Act 05-31-2023 History of Presen t illness Narrative Images from the original note were not included. [address] [place] [address] SUBJECTIVE: Patient ID: Nellie Wilson is a 33 y.o. female. Chief [...] 10/28/2022 Performed by Jordin Zavala MD at [facility] LAPAROSCOPIC CHOLECYSTECTOMY N/A 03/31/2023 Performed by Carl Rogers MD at [facility] W/ TUBES PLACEMENT PEG TUBE REPLACEMENT; 20-22FR N/A 04/12/2016 Performed by Jd Small DO at [facility] 10/29/2022 Past Medical History: Diagnosis Date ABBE (acute kidney injury) ([facility]) 10/29/2022 Cerebral palsy ([facility] Difficult intravenous access HL (hearing loss) moderate loss Pneumonia 10/28/2022 Salivation excessive 12/01/2016 Seizures ([facility] Sinusitis, chronic Upper respiratory infection There is [...] Affect: Mood normal. Behavior: Behavior normal. ASSESSMENT/PLAN: Nellie was seen today for hypertension. Diagnoses and all orders for this visit: Other iron deficiency anemia - Iron and TIBC; Future Elevated liver enzymes - Hepatic function panel; Future Benign essential HTN Salivation excessive - glycopyrrolate (ROBINUL) 2 MG tablet; give 1 tablet PER TUBE every morning and BEFORE BEDTIME Seizure disorder ([facility]) - levETIRAcetam (KEPPRA) 100 mg/mL solution; Administer [...] Zapien 05/31/23 0810 documented [facility] History of Presen t illness Narrative Subjective: Nellie Wilson is a 33 y.o. female presented [...] No erythema no discharge no bleeding. Assessment: Nellie Wilson is a 33 y.o.female status post laparoscopic cholecystectomy. No complication. Plan: 1) pathology report reviewed with the caregiver 2) all questions and concerns were addressed 3) follow-up p.r.n. 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 Cognitive developmental delay Motor delay Mood disorder (CMS/HCC) Unspecified episodic mood disorder Medication monitoring encounter Encounter for therapeutic drug monitoring [facility] Calculus of gallbladder without cholecystitis without obstruction- Primary documented [facility] this [facility]* Diagnosis Acute cystitis without hematuria- Primary documented in this [facility]* Diagnosis Other cerebral palsy (CMS-HCC)- Primary Developmental disability Unspecified delay in development documented in this [facility]* Diagnosis Benign essential HTN documented in this encounter [facility]* Diagnosis Benign essential HTN- Primary Other iron deficiency anemia Elevated liver enzymes Other nonspecific abnormal serum enzyme levels Salivation excessive Disturbance of salivary secretion Seizure disorder (CMS-HCC) Unspecified epilepsy without mention of intractable epilepsy documented in this encounter [facility]* Diagnosis Seizure disorder (CMS-HCC)- Primary Unspecified epilepsy without mention of intractable epilepsy Salivation excessive Disturbance of salivary secretion documented in this encounter [facility]* Diagnosis Annual physical exam- Primary Routine general medical examination at a health care facility Blood tests for routine general physical examination Laboratory examination ordered as part of a routine general medical examination Vitamin D deficiency Salivation excessive Disturbance of salivary secretion Chronic constipation Unspecified constipation documented in this encounter [facility]* Diagnosis Seizure (CMS/HCC)- Primary Other convulsions Medication monitoring encounter Encounter for therapeutic drug monitoring Motor delay 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 * Urinary Tract Infection, Adult ED ([place]) [facility] System[facility]ructionsNot on file documented in this encounterPro[facility] SystemInstructionsNot on file documented in this encounterProPrem[facility] SystemInstructionsNot on file documented in this encounterPro[facility] SystemInstructionsNot on file documented in this [facility]* Attachments The following attachments cannot be sent through Care Everywhere. * Cerebral palsy ([place]) * Enteral Feeding ([place]) documented in this [facility]* Attachments The following attachments cannot be sent through Care Everywhere. * Epilepsy in adults ([place]) documented in this [facility]* Attachments The following attachments cannot be sent through Care Everywhere. * Yearly Physical for Adults ([place]) documented in this [facility] [place] Summary Purpose Family History No Family History Records FoundNo Family History Records FoundNo Family History Records FoundNo Family History Records FoundNo Family History Records FoundNo Family History Records Found Advance Directives No Advanced Directives Records FoundLatest Code Status on File Code Status Date Activated Date Inactivated Comments Full Code 10/28/2022 4:16 AM 11/11/2022 6:46 PM Date Activated Date Inactivated Comments 10/28/2022 4:16 AM 11/11/2022 6:46 PM Date Activated Date Inactivated Comments 10/28/2022 4:16 AM 11/11/2022 6:46 PM Reason for Referral Specialty Diagnoses / Procedures Referred By Jaleesa mitchell Referred To Contact Diagnoses Other cerebral palsy (CMS-HCC) Developmental disability Procedures Disability/Handicap Ree King, MUSEUM SPECIALIST-SCALE BALANCER [address] [place] [address] Referral ID Status Reason Start Date Expiration Date V isits Requested Visits Authorized [id number] Pending Review 09/06/2023 09/05/2024 1 1 Additional Source Comments INFORMATION SOURCE (unrecogn ized section and content) DATE CREATED AUTHOR 07/17/2022 [facility] DATE CREATED AUTHOR AUTHOR'S ORGANIZ ATION 05/15/2023 [facility] DATE CREATED AUTHOR AUTHOR'S ORGANIZ ATION 04/28/2024 [facility] DATE CREATED AUTHOR AUTHOR'S ORGANIZ ATION [facility]/15/2024 [facility] DATE CREATED AUTHOR AUTHOR'S ORGANIZ ATION 07/15/2024 [facility] DATE CREATED AUTHOR AUTHOR'S ORGANIZ ATION 08/17/2024 [facility] dical Specialists EPIC Reason for Visit (unrecogniz ed section and content) Reason Comments Seizures Reason Comments Post-op 1ST PO GB JOSE 03/12 1 Reason Comments Follow-up Uti, Reason Comments Med Refill Reason Comments Hypertension Reason Comments cerbal palsey Reason Comments wellness Care Teams (unrecognized sec tion and content) Coagulating Bath Mixer Relationship Specialty Start Date End Date Ree Bolaños CRNP [address] [place] [address] Referring Physician Nurse Practitioner 08/16/23 Coagulating Bath Mixer Relationship Specialty Start Date End Date Ree Bolaños CRNP [address] [place] [address] Referring Physician Nurse Practitioner 08/16/23 Coagulating Bath Mixer Relationship Specialty Start Date End Date Ree Bolaños APRN-SCALE BALANCER [address] [place] [address] PCP - General Family Medicine 08/17/22 Coagulating Bath Mixer Relationship Specialty Start Date End Date Ree Bolaños APRN-SCALE BALANCER [address] [place] [address] PCP - General Family Medicine 05/15/23 Coagulating Bath Mixer Relationship Specialty Start Date End Date [facility] [address] [place] [address] PCP - General Family Medicine 05/15/23 Coagulating Bath Mixer Relationship Specialty Start Date End Date Ree Bolaños [facility] [address] [place] [address] PCP - General Family Medicine 05/15/23 Coagulating Bath Mixer Relationship Specialty Start Date End Date Ree Bolaños [facility] [address] [place] [address] PCP - General Family Medicine 05/15/23 Coagulating Bath Mixer Relationship Specialty Start Date End Date Ree Bolaños [facility] [address] [place] [address] PCP - General Family Medicine 05/15/23 Coagulating Bath Mixer Relationship Specialty Start Date End Date Ree Bolaños [facility] [address] [place] [address] PCP - General Family Medicine 05/15/23 Coagulating Bath Mixer Relationship Specialty Start Date End Date [facility] [address] [place] [address] PCP - General Family Medicine 05/04/24 Coagulating Bath Mixer Relationship Specialty Start Date End Date Ree Bolaños CRNP Referring Physician Nurse Practitioner 08/16/23 Coagulating Bath Mixer Relationship Specialty Start Date End Date Ree Bolaños CRNP Referring Physician Nurse Practitioner 08/16/23 FOR RECORDS PERTAINING TO PATIENTS WHO ARE [...] BE BASED ON THE PRIMARY CLINICAL RECORDS. [facility] [employer] [facility]. provides no warranty or guarantee of the accuracy or completeness of information in this document.
[2024-08-25 11:15] LABS: Valproic Acid 65.4 ug/mL (50.0-100.0)
== END 2024-08-25 10:32 | disposition home or self-care (01) ==
LOC: LAB 10:33
PROVIDERS: PCP Nurse Practitioner; Visit Provider Psychiatry & Neurology Neurology
DX: R56.9 Unspecified convulsions (principal)
CPT/HCPCS: 36415; 80164